=== PATIENT | male | born 1955 | race Two or more races ===

== ENCOUNTER → 2016-11-08 | Outpatient (CLI) | payer MEDICARE, MEDICAID ==
[~2016-11-08] MED LIST: AML5T PO; ATE50T PO; CHOL50007 PO; DOXA1TAB28 PO; ENAL20TA70 PO; GEM600T OR; GLIP-116 PO; LINA5TAB PO; METF-314 PO; PRAV20TA3 PO; RANI150C11 PO
[2016-11-08 12:38] LABS: Basophils # (auto) 0 uL; Basophils % (auto) 0.5 % (0.0-2.0); Eosinophils # (auto) 0.1 uL; Eosinophils % (auto) 1.7 % (0.0-7.0); Hematocrit 39.7 % (41.0-53.0); Hemoglobin 12.8 g/dL (13.5-17.5); Lymphocytes % (auto) 17.7 % (10.0-50.0); Mean Corpuscular Hemoglobin 28.9 pg (28.0-32.0); Mean Corpuscular Hgb Conc. 32.2 g/dL (32.0-36.0); Mean Corpuscular Volume 89.9 fL (80.0-100.0); Monocytes # (auto) 0.2 uL; Monocytes % (auto) 3.7 % (0.0-12.0); Neutrophils # (auto) 4.4 uL; Neutrophils % (auto) 76.4 % (37.0-80.0); Platelet Count (auto) 203 10^3/uL (140-450); Red Cell Distribution Width 13.4 % (11.6-16.0); SUSPECT VIEW TRANSMISSION; White Blood Cell 5.8 10^3/uL (4.4-10.8)
[2016-11-08 13:44] LABS: Albumin 3.3 g/dL (3.4-5.0); BUN/Creatinine Ratio 15.7; Bilirubin, Total 0.3 mg/dL (0.2-1.0); Calcium 8.6 mg/dL (8.5-10.1); Potassium 4.6 mmol/L (3.5-5.1); Total Protein 7.9 g/dL (6.4-8.2)
[2016-11-08 19:39] LABS: Platelet Estimate Adequate
[2016-11-08 19:40] LABS: RBC Morphology Normal
== END | disposition home or self-care (01) ==
LOC: LAB 11:06
PROVIDERS: ATTEND Internal Medicine
DX: R19.7 Diarrhea, unspecified (principal); E10.9 Type 1 diabetes mellitus without complications
CPT/HCPCS: 36415; 80053; 82607; 83036; 84439; 84443; 85025; 86141; 87493

== ENCOUNTER → 2017-06-06 | Outpatient (CLI) | payer MEDICARE, MEDICAID ==
[~2017-06-06] MED LIST changes: -METF-314 PO; +METF-371 PO
[2017-06-06 08:34] LABS: Basophils # (auto) 0 uL; Basophils % (auto) 0.5 % (0.0-2.0); Eosinophils # (auto) 0.1 uL; Eosinophils % (auto) 2.4 % (0.0-7.0); Hematocrit 37.8 % (41.0-53.0); Hemoglobin 12.9 g/dL (13.5-17.5); Lymphocytes # (auto) 1.3 uL; Lymphocytes % (auto) 22.9 % (10.0-50.0); Mean Corpuscular Hemoglobin 30.8 pg (28.0-32.0); Mean Corpuscular Hgb Conc. 34.1 g/dL (32.0-36.0); Mean Corpuscular Volume 90.3 fL (80.0-100.0); Mean Platelet Volume 8.7 fL (7.4-10.4); Monocytes # (auto) 0.3 uL; Monocytes % (auto) 5.5 % (0.0-12.0); Neutrophils % (auto) 68.7 % (37.0-80.0); Nucleated Red Blood Cells % 0.1 %; Platelet Count (auto) 153 10^3/uL (140-450); Red Cell Distribution Width 13.4 % (11.6-16.0); White Blood Cell 5.8 10^3/uL (4.4-10.8)
[2017-06-06 08:48] LABS: Urine Bilirubin Negative (Negative); Urine Blood Negative /uL (Negative); Urine Color Yellow (Yellow); Urine Glucose 1+ mg/dL (Normal); Urine Ketone Negative (Negative); Urine Nitrite Negative (Negative); Urine RBC <1 /hpf (0 - 3); Urine Urobilinogen Normal (Negative)
[2017-06-06 10:05] LABS: Albumin 3.3 g/dL (3.4-5.0); BUN/Creatinine Ratio 18.5; Bilirubin, Total 0.3 mg/dL (0.2-1.0); Calcium 8.9 mg/dL (8.5-10.1); Potassium 4.4 mmol/L (3.5-5.1); Total Protein 7.9 g/dL (6.4-8.2)
== END | disposition home or self-care (01) ==
LOC: LAB 08:11
PROVIDERS: ATTEND Internal Medicine
DX: E78.00 Pure hypercholesterolemia, unspecified (principal); D64.9 Anemia, unspecified; E11.9 Type 2 diabetes mellitus without complications
CPT/HCPCS: 36415; 80053; 80061; 81001; 82043; 83036; 84153; 85025; 85652

== ENCOUNTER → 2017-10-26 | Outpatient (CLI) | payer MEDICARE, MEDICAID ==
[2017-10-26 10:13] LABS: BUN/Creatinine Ratio 16.1; Calcium 9.1 mg/dL (8.5-10.1); Potassium 4.6 mmol/L (3.5-5.1)
== END | disposition home or self-care (01) ==
LOC: LAB 08:31
PROVIDERS: ATTEND Internal Medicine
DX: E11.22 Type 2 diabetes mellitus with diabetic chronic kidney disease (principal); N18.4 Chronic kidney disease, stage 4 (severe)
CPT/HCPCS: 36415; 80048; 83036

== ENCOUNTER → 2018-06-20 | Outpatient (CLI) | payer MEDICARE, MEDICAID ==
[~2018-06-20] MED LIST changes: +GLYCOPYRROLATE 0.2 MG/ML 1ML VIAL ONE
[2018-06-20 10:32] LABS: Urine Bacteria NONE SEEN /hpf (None Seen); Urine Blood Negative /uL (Negative); Urine Specific Gravity 1.008 (1.001-1.035); Urine WBC <1 /hpf (0 - 3)
[2018-06-20 11:16] LABS: Alanine Aminotransferase 20 U/L (16-61); Albumin 3.6 g/dL (3.4-5.0); Alkaline Phosphatase 107 U/L (45-117); Anion Gap 7 (5-15); Aspartate Aminotransferase 13 U/L (15-37); BUN/Creatinine Ratio 16.5; Bilirubin, Total 0.5 mg/dL (0.2-1.0); Blood Urea Nitrogen 55 mg/dL (7-18); Calcium 8.8 mg/dL (8.5-10.1); Carbon Dioxide 24 mmol/L (21-32); Chloride 108 mmol/L (98-107); Cholesterol 191 mg/dL (< 200); GFR African American 24 mL/min; GFR Non-African American 20 mL/min; Glucose 115 mg/dL (74-106); HDL Cholesterol 31 mg/dL (40-59); Potassium 4.6 mmol/L (3.5-5.1); Sodium 139 mmol/L (136-145); Total Protein 8.3 g/dL (6.4-8.2); Triglycerides 402 mg/dL (< 150); Uric Acid 8.3 mg/dL (3.5-7.2)
[2018-06-20 11:18] LABS: Prostate Specific Antigen 0.48 ng/mL (0.0-4.0)
== END | disposition home or self-care (01) ==
LOC: LAB 09:23
PROVIDERS: ATTEND Internal Medicine
DX: E11.22 Type 2 diabetes mellitus with diabetic chronic kidney disease (principal); N18.4 Chronic kidney disease, stage 4 (severe); N40.0 Benign prostatic hyperplasia without lower urinary tract symptoms
CPT/HCPCS: 36415; 80053; 80061; 81001; 82043; 82607; 83036; 84153; 84443; 84550

== ENCOUNTER → 2019-03-25 | Outpatient (CLI) | payer MEDICARE, MEDICAID ==
[~2019-03-25] MED LIST changes: -GLYCOPYRROLATE 0.2 MG/ML 1ML VIAL ONE
[2019-03-25 08:24] LABS: Potassium 4.5 mmol/L (3.5-5.1)
== END | disposition home or self-care (01) ==
LOC: LAB 07:25
PROVIDERS: ATTEND Internal Medicine
DX: E11.9 Type 2 diabetes mellitus without complications (principal); E78.5 Hyperlipidemia, unspecified; R25.2 Cramp and spasm
CPT/HCPCS: 36415; 80061; 82550; 84132

== ENCOUNTER → 2019-04-25 | Outpatient (CLI) | payer MEDICARE, MEDICAID ==
[~2019-04-25] MED LIST changes: +ENAL20TA PO; -ENAL20TA70 PO; -GLIP-116 PO; +GLIP10TA9 PO
[2019-04-25 10:50] LABS: Basophils # (auto) 0 uL; Basophils % (auto) 0.9 % (0.0-2.0); Eosinophils # (auto) 0.1 uL; Eosinophils % (auto) 2.2 % (0.0-7.0); Hematocrit 31.1 % (41.0-53.0); Hemoglobin 10.4 g/dL (13.5-17.5); Lymphocytes # (auto) 0.9 uL; Lymphocytes % (auto) 16.4 % (10.0-50.0); Mean Corpuscular Hgb Conc. 33.3 g/dL (32.0-36.0); Mean Corpuscular Volume 93.1 fL (80.0-100.0); Monocytes # (auto) 0.3 uL; Monocytes % (auto) 5.8 % (0.0-12.0); Neutrophils # (auto) 4.1 uL; Neutrophils % (auto) 74.7 % (37.0-80.0); Platelet Count (auto) 207 10^3/uL (140-450); Red Blood Cells 3.34 10^6/uL (4.5-5.90); Red Cell Distribution Width 13.5 % (11.8-14.3); White Blood Cell 5.5 10^3/uL (4.4-10.8)
[2019-04-25 11:16] LABS: Potassium 5.1 mmol/L (3.5-5.1)
[2019-04-25 11:35] LABS: Albumin 3.1 g/dL (3.4-5.0); Bilirubin, Total 0.3 mg/dL (0.2-1.0); Calcium 8.4 mg/dL (8.5-10.1); Phosphorus 3.8 mg/dL (2.5-4.90); Total Protein 8.1 g/dL (6.4-8.2); Uric Acid 8.2 mg/dL (3.5-7.2)
== END | disposition home or self-care (01) ==
LOC: LAB 10:15
PROVIDERS: ATTEND Internal Medicine
DX: E11.22 Type 2 diabetes mellitus with diabetic chronic kidney disease (principal); N18.4 Chronic kidney disease, stage 4 (severe)
CPT/HCPCS: 36415; 80053; 84100; 84550; 85025

== ENCOUNTER → 2021-10-26 | Outpatient (CLI) | payer MEDICARE, MEDICAID ==
[~2021-10-26] MED LIST changes: -ENAL20TA PO; +ENAL20TA8 PO
[2021-10-26 12:29] LABS: Basophils # (auto) 0.1 10 ^3/uL (0-0.2); Basophils % (auto) 1.9 % (0.0-2.0); Eosinophils # (auto) 0 10 ^3/uL (0-0.8); Eosinophils % (auto) 0.3 % (0.0-7.0); Hematocrit 31.9 % (41.0-53.0); Hemoglobin 10.7 g/dL (13.5-17.5); Lymphocytes # (auto) 0.1 10 ^3/uL (0.4-5.4); Lymphocytes % (auto) 2.1 % (10.0-50.0); Mean Corpuscular Hemoglobin 32.1 pg (28.0-32.0); Mean Corpuscular Hgb Conc. 33.6 g/dL (32.0-36.0); Mean Corpuscular Volume 95.7 fL (80.0-100.0); Monocytes # (auto) 0.2 10 ^3/uL (0-1.3); Monocytes % (auto) 3.6 % (0.0-12.0); Neutrophils # (auto) 5.1 10 ^3/uL (1.6-8.6); Neutrophils % (auto) 92.1 % (37.0-80.0); Red Blood Cells 3.33 10^6/uL (4.5-5.90); Red Cell Distribution Width 14.2 % (11.8-14.3); White Blood Cell 5.5 10^3/uL (4.4-10.8)
[2021-10-26 13:16] LABS: Albumin 3.2 g/dL (3.4-5.0); Calcium 8.5 mg/dL (8.5-10.1); Potassium 4.7 mmol/L (3.5-5.1)
[2021-10-26 13:21] LABS: BUN/Creatinine Ratio 19.3; Bilirubin, Total 0.5 mg/dL (0.2-1.0); Total Protein 6.6 g/dL (6.4-8.2); Uric Acid 5.4 mg/dL (3.5-7.2)
== END | disposition home or self-care (01) ==
LOC: LAB 12:04
PROVIDERS: ATTEND Internal Medicine
DX: I10 Essential (primary) hypertension (principal); Z94.0 Kidney transplant status
CPT/HCPCS: 36415; 80053; 84550; 85025; 85652

== ENCOUNTER → 2022-08-28 | Outpatient (CLI) | payer MEDICARE, MEDICAID ==
[2022-08-28 09:47] LABS: Basophils # (auto) 0 10 ^3/uL (0-0.2); Basophils % (auto) 0.6 % (0.0-2.0); Eosinophils # (auto) 0 10 ^3/uL (0-0.8); Eosinophils % (auto) 0.9 % (0.0-7.0); Hematocrit 48.6 % (41.0-53.0); Hemoglobin 15.8 g/dL (13.5-17.5); Lymphocytes # (auto) 0.6 10 ^3/uL (0.4-5.4); Lymphocytes % (auto) 11.6 % (10.0-50.0); Mean Corpuscular Hemoglobin 30.6 pg (28.0-32.0); Mean Corpuscular Hgb Conc. 32.5 g/dL (32.0-36.0); Mean Corpuscular Volume 93.9 fL (80.0-100.0); Monocytes # (auto) 0.5 10 ^3/uL (0-1.3); Monocytes % (auto) 10.9 % (0.0-12.0); Neutrophils # (auto) 3.7 10 ^3/uL (1.6-8.6); Nucleated Red Blood Cells % 0.2 %; Red Blood Cells 5.17 10^6/uL (4.5-5.90); Red Cell Distribution Width 14.3 % (11.8-14.3); White Blood Cell 4.9 10^3/uL (4.4-10.8)
[2022-08-28 09:51] LABS: Urine Bacteria FEW /hpf (None Seen); Urine Blood Negative /uL (Negative); Urine Specific Gravity 1.017 (1.001-1.035); Urine WBC <1 /hpf (0 - 3)
[2022-08-28 10:29] LABS: Potassium 4.4 mmol/L (3.5-5.1)
[2022-08-28 10:42] LABS: Albumin 3.7 g/dL (3.4-5.0); BUN/Creatinine Ratio 18.6; Bilirubin, Total 0.5 mg/dL (0.2-1.0); Calcium 9.5 mg/dL (8.5-10.1); Total Protein 7.2 g/dL (6.4-8.2); Uric Acid 5.4 mg/dL (3.5-7.2)
[2022-08-28 13:05] LABS: Free T4 (Free Thyroxine) 0.96 ng/dL (0.89-1.76); Prostate Specific Antigen 0.31 ng/mL (0.0-4.0)
== END | disposition home or self-care (01) ==
LOC: LAB 09:24
PROVIDERS: ATTEND Internal Medicine
DX: N40.0 Benign prostatic hyperplasia without lower urinary tract symptoms (principal); E11.9 Type 2 diabetes mellitus without complications; I10 Essential (primary) hypertension; R35.1 Nocturia; Z94.0 Kidney transplant status
CPT/HCPCS: 36415; 80053; 80061; 81001; 82043; 82607; 83036; 84153; 84439; 84443; 84550; 85025; 85652

== ENCOUNTER 2022-09-10 12:33 | Emergency (ER) | payer MEDICARE, MEDICAID ==
[~2022-09-10] VITALS: Ht 157.5 cm; Wt 67.5 kg
[2022-09-10 14:21] LABS: Basophils # (auto) 0 10 ^3/uL (0-0.2); Basophils % (auto) 0.7 % (0.0-2.0); Eosinophils # (auto) 0 10 ^3/uL (0-0.8); Eosinophils % (auto) 0.4 % (0.0-7.0); Hematocrit 46.9 % (41.0-53.0); Hemoglobin 15.3 g/dL (13.5-17.5); Lymphocytes # (auto) 0.3 10 ^3/uL (0.4-5.4); Lymphocytes % (auto) 4.9 % (10.0-50.0); Mean Corpuscular Hemoglobin 30.3 pg (28.0-32.0); Mean Corpuscular Hgb Conc. 32.5 g/dL (32.0-36.0); Mean Corpuscular Volume 93.3 fL (80.0-100.0); Monocytes # (auto) 0.5 10 ^3/uL (0-1.3); Neutrophils # (auto) 5.9 10 ^3/uL (1.6-8.6); Nucleated Red Blood Cells % 0.4 %; Red Blood Cells 5.03 10^6/uL (4.5-5.90); Red Cell Distribution Width 14.4 % (11.8-14.3); White Blood Cell 6.8 10^3/uL (4.4-10.8)
[2022-09-10 14:37] LABS: Albumin 3.5 g/dL (3.4-5.0); Calcium 9.2 mg/dL (8.5-10.1); Potassium 4.6 mmol/L (3.5-5.1)
[2022-09-10 14:41] LABS: BUN/Creatinine Ratio 21.8; Bilirubin, Total 0.7 mg/dL (0.2-1.0)
[2022-09-10] MEDS ORDERED: VANCOMYCIN 1GM/250ML 250 ML IV ONE (18:30)
[2022-09-10] MEDS ORDERED: CEFD300C2 PO (19:01)
[2022-09-10] MEDS ORDERED: CLIN300C8 PO (19:01)
[2022-09-10] MEDS ORDERED: HYDR-4902 PO (19:01)
[2022-09-10 20:24] VITALS: BP 134/77
== END 2022-09-10 20:25 | disposition home or self-care (01) ==
LOC: ER 12:33
DX: M86.8X7 Other osteomyelitis, ankle and foot (principal); E11.9 Type 2 diabetes mellitus without complications; I10 Essential (primary) hypertension; Z79.4 Long term (current) use of insulin
CPT/HCPCS: 36415; 73700; 80053; 85025; 96365; 99284; J3370

== ENCOUNTER → 2022-10-20 | Outpatient (CLI) | payer MEDICARE, MEDICAID ==
[~2022-10-20] MED LIST changes: +ATEN-60 PO; +CEFD300C2 PO; +CHOL20007 PO; +CLIN300C8 PO; +FAMO20TA10 PO; +HYDR-4902 PO; +MAGN400T40 PO; +MYCO250C PO; +MYCO500T PO; +POT1TAB PO; +POTATAB5 PO; +PRE5T PO; +PRED1PAK8 PO; +TACR1CAP4 PO; +TACR1GRA PO; +TAM04C PO; +TAMS0.4C36 PO; +[UNRECOGNIZED DRUG - CODE] XX
== END | disposition home or self-care (01) ==
LOC: Rad HDHVI 10:02
PROVIDERS: ATTEND Internal Medicine
DX: R06.02 Shortness of breath (principal); I10 Essential (primary) hypertension; E78.5 Hyperlipidemia, unspecified
CPT/HCPCS: 93306

== ENCOUNTER 2022-11-20 10:06 | Inpatient (IN) | payer MEDICARE, MEDICAID ==
[~2022-11-20] VITALS: Ht 157.5 cm; Wt 67.5 kg
[2022-11-20] MEDS ORDERED: PIPERACILLIN-TAZOB 3.375GM 100 ML IV ONE (12:15)
[2022-11-20 12:38] LABS: Urine Blood Negative /uL (Negative)
[2022-11-20 15:19] LABS: Basophils # (auto) 0 10 ^3/uL (0-0.2); Basophils % (auto) 0.3 % (0.0-2.0); Eosinophils # (auto) 0 10 ^3/uL (0-0.8); Eosinophils % (auto) 0.1 % (0.0-7.0); Hematocrit 40.1 % (41.0-53.0); Hemoglobin 13.2 g/dL (13.5-17.5); Lymphocytes # (auto) 0.3 10 ^3/uL (0.4-5.4); Lymphocytes % (auto) 4.6 % (10.0-50.0); Mean Corpuscular Hemoglobin 29.6 pg (28.0-32.0); Mean Corpuscular Volume 89.8 fL (80.0-100.0); Monocytes # (auto) 0.3 10 ^3/uL (0-1.3); Monocytes % (auto) 4.7 % (0.0-12.0); Neutrophils # (auto) 5.6 10 ^3/uL (1.6-8.6); Neutrophils % (auto) 90.3 % (37.0-80.0); Red Blood Cells 4.46 10^6/uL (4.5-5.90); Red Cell Distribution Width 14.6 % (11.8-14.3); White Blood Cell 6.1 10^3/uL (4.4-10.8)
[2022-11-20 15:29] LABS: Albumin 3.1 g/dL (3.4-5.0); Calcium 8.6 mg/dL (8.5-10.1); Potassium 4.5 mmol/L (3.5-5.1)
[2022-11-20 15:33] LABS: Bilirubin, Total 0.6 mg/dL (0.2-1.0); Total Protein 7.4 g/dL (6.4-8.2)
[2022-11-20] MEDS ORDERED: VANCOMYCIN PER PHARMACY 0 MG IV SCH (16:15)
[2022-11-20] MEDS ORDERED: ACETAMINOPHEN 325 MG TAB PO PRN (16:15)
[2022-11-20] MEDS ORDERED: DEXTROSE (50%) 50ML SYRG IV PRN (16:15)
[2022-11-20] MEDS ORDERED: VANCOMYCIN 1GM/250ML 250 ML IV ONE (16:30)
[2022-11-20] MEDS ORDERED: PANTOPRAZOLE 40 MG/10 ML VIAL INJ IV ONE (16:30)
[2022-11-20 16:51] LABS: Cholesterol 111 mg/dL (< 200); Triglycerides 105 mg/dL (< 150)
[2022-11-20 16:53] LABS: HDL Cholesterol 37 mg/dL (40-59); LDL Cholesterol 65 mg/dL (< 100)
[2022-11-20] MEDS: VANCOMYCIN 1GM/250ML 250 ML IV SCH (20:59)
[2022-11-20] MEDS: SODIUM CHLORIDE 0.9% 1,000 ML IV SCH (20:59)
[2022-11-20] MEDS: InsuLIN REG 1unit/0.01ml Soln (100units/ml) SC SCH ×2 (21:16→21:42)
[2022-11-20] MEDS: ACCU-CHEK COMFORT CURVE STRIP VI SCH ×2 (21:17→21:34)
[2022-11-20] MEDS: PIPERACILLIN-TAZOB 3.375GM 100 ML IV SCH (22:49)
[2022-11-21] MEDS: SODIUM CHLORIDE 0.9% 1,000 ML IV SCH (02:15)
[2022-11-21] MEDS: PIPERACILLIN-TAZOB 3.375GM 100 ML IV SCH ×3 (06:02→22:06)
[2022-11-21] MEDS: ACCU-CHEK COMFORT CURVE STRIP VI SCH ×4 (06:41→22:16)
[2022-11-21] MEDS: InsuLIN REG 1unit/0.01ml Soln (100units/ml) SC SCH ×4 (06:47→22:24)
[2022-11-21 07:32] LABS: Albumin 2.6 g/dL (3.4-5.0); Basophils # (auto) 0 10 ^3/uL (0-0.2); Basophils % (auto) 0.1 % (0.0-2.0); Eosinophils # (auto) 0.1 10 ^3/uL (0-0.8); Eosinophils % (auto) 1.2 % (0.0-7.0); Hemoglobin 12.6 g/dL (13.5-17.5); Lymphocytes # (auto) 0.3 10 ^3/uL (0.4-5.4); Lymphocytes % (auto) 3.6 % (10.0-50.0); Mean Corpuscular Hemoglobin 30.9 pg (28.0-32.0); Mean Corpuscular Hgb Conc. 33.2 g/dL (32.0-36.0); Monocytes # (auto) 0.5 10 ^3/uL (0-1.3); Monocytes % (auto) 5.8 % (0.0-12.0); Neutrophils # (auto) 8.5 10 ^3/uL (1.6-8.6); Neutrophils % (auto) 89.3 % (37.0-80.0); Nucleated Red Blood Cells % 0.1 %; Potassium 4.6 mmol/L (3.5-5.1); Red Blood Cells 4.09 10^6/uL (4.5-5.90); Red Cell Distribution Width 14.6 % (11.8-14.3); White Blood Cell 9.5 10^3/uL (4.4-10.8)
[2022-11-21 07:37] LABS: BUN/Creatinine Ratio 26.4; Bilirubin, Total 0.7 mg/dL (0.2-1.0); Total Protein 5.7 g/dL (6.4-8.2)
[2022-11-21] MEDS: ENOXAPARIN SOD 40 MG/0.4 ML SYRINGE SC SCH (09:10)
[2022-11-21] MEDS: PANTOPRAZOLE 40 MG/10 ML VIAL INJ IV SCH (09:10)
[2022-11-21] MEDS: VANCOMYCIN 1GM/250ML 250 ML IV SCH (12:56)
[2022-11-21 13:57] LABS: INR 1.18 (0.9-1.15); Partial Thromboplastin Time 41.3 sec (24.6-33.4)
[2022-11-21 15:38] VITALS: BP 138/33
[2022-11-21 20:00] VITALS: BP 115/47
[2022-11-21 22:00] VITALS: BP 115/47
[2022-11-22 05:00] VITALS: BP 133/61
[2022-11-22 05:40] LABS: Basophils # (auto) 0 10 ^3/uL (0-0.2); Basophils % (auto) 0.5 % (0.0-2.0); Eosinophils # (auto) 0.1 10 ^3/uL (0-0.8); Hematocrit 38.4 % (41.0-53.0); Hemoglobin 13.2 g/dL (13.5-17.5); Lymphocytes # (auto) 0.5 10 ^3/uL (0.4-5.4); Lymphocytes % (auto) 7.4 % (10.0-50.0); Mean Corpuscular Hemoglobin 30.4 pg (28.0-32.0); Mean Corpuscular Hgb Conc. 34.5 g/dL (32.0-36.0); Mean Corpuscular Volume 88.2 fL (80.0-100.0); Monocytes # (auto) 0.6 10 ^3/uL (0-1.3); Neutrophils # (auto) 5.2 10 ^3/uL (1.6-8.6); Neutrophils % (auto) 81.1 % (37.0-80.0); Nucleated Red Blood Cells % 0.2 %; Red Blood Cells 4.35 10^6/uL (4.5-5.90); Red Cell Distribution Width 14.9 % (11.8-14.3); White Blood Cell 6.4 10^3/uL (4.4-10.8)
[2022-11-22 05:49] LABS: BUN/Creatinine Ratio 22.8; Calcium 8.7 mg/dL (8.5-10.1); Potassium 4.3 mmol/L (3.5-5.1)
[2022-11-22] MEDS: PIPERACILLIN-TAZOB 3.375GM 100 ML IV SCH ×3 (05:52→21:45)
[2022-11-22] MEDS: ACCU-CHEK COMFORT CURVE STRIP VI SCH ×4 (06:34→21:05)
[2022-11-22] MEDS: InsuLIN REG 1unit/0.01ml Soln (100units/ml) SC SCH ×4 (06:35→21:23)
[2022-11-22 08:00] VITALS: BP 161/62
[2022-11-22] MEDS: NEUTRA-PHOS TABLET PO SCH (08:30)
[2022-11-22] MEDS: VANCOMYCIN 1GM/250ML 250 ML IV SCH (08:32)
[2022-11-22] MEDS ORDERED: predniSONE 5 MG TAB PO ONE (10:00)
[2022-11-22] MEDS: FAMOTIDINE 20 MG TAB PO SCH (10:00)
[2022-11-22] MEDS ORDERED: TACROLIMUS 1 MG CAP PO SCH (10:00)
[2022-11-22] MEDS: ATENOLOL 25 MG TAB PO SCH (10:00)
[2022-11-22] MEDS: ENOXAPARIN SOD 40 MG/0.4 ML SYRINGE SC SCH (10:00)
[2022-11-22] MEDS: amLODIPine BESYLATE 5 MG TAB PO SCH (10:00)
[2022-11-22] MEDS: GEMFIBROZIL 600 MG TAB PO SCH ×2 (10:00→21:04)
[2022-11-22] MEDS: metFORMIN HYDROCHLORIDE 850 MG TAB PO SCH ×2 (10:00→21:03)
[2022-11-22] MEDS: PANTOPRAZOLE 40 MG/10 ML VIAL INJ IV SCH (11:00)
[2022-11-22] MEDS: MYCOPHENOLATE 500 MG TAB PO SCH ×2 (11:15→21:03)
[2022-11-22] MEDS: TACROLIMUS 1 MG CAP PO SCH ×2 (11:15→21:04)
[2022-11-22 12:00] VITALS: BP 123/57
[2022-11-22] MEDS ORDERED: ceFAZolin 1GM/50ML 100 ML IV ONE (12:21)
[2022-11-22] MEDS ORDERED: fentaNYL CITRATE 100 MCG/2 ML VL ONE (12:31)
[2022-11-22] MEDS ORDERED: MIDAZOLAM HCL 2MG/2ML 2ml VIAL (1mg/ml) ONE (12:31)
[2022-11-22] MEDS ORDERED: LIDOCAINE W/ EPINEPHRINE 2% INJ 20ML VIAL ONE (12:36)
[2022-11-22] MEDS ORDERED: BUPIVACAINE 0.5% P/F INJ 10 ML VIAL ONE (12:36)
[2022-11-22] MEDS ORDERED: ONDANSETRON HCL 4 MG/2 ML VIAL IV PRN (13:15)
[2022-11-22] MEDS ORDERED: HYDROmorphone HCL 2 MG/ML VL/or syr IV PRN (13:15)
[2022-11-22] MEDS ORDERED: ceFAZolin 1GM VL ONE (13:42)
[2022-11-22] MEDS ORDERED: ONDANSETRON HCL 4 MG/2 ML VIAL ONE (14:03)
[2022-11-22] MEDS ORDERED: PROPOFOL 10 MG/ML 20 ML IV ONE (14:04)
[2022-11-22 16:00] VITALS: BP 130/56
[2022-11-22] MEDS: PRAVASTATIN SODIUM 20 MG TAB PO SCH (17:46)
[2022-11-22 20:00] VITALS: BP 109/56
[2022-11-22] MEDS: TAMSULOSIN HYDROCHLORIDE 0.4 MG CAP PO SCH (21:03)
[2022-11-22] MEDS: MORPHINE SULFATE INJ 2 MG/ml SYRG IV PRN (21:12)
[2022-11-22 22:00] VITALS: BP 109/56
[2022-11-23] MEDS: VANCOMYCIN 1GM/250ML 250 ML IV SCH ×2 (01:44→21:52)
[2022-11-23 05:00] VITALS: BP 115/49
[2022-11-23] MEDS: PIPERACILLIN-TAZOB 3.375GM 100 ML IV SCH (05:18)
[2022-11-23] MEDS: HYDROcodone-ACET 5/325MG TAB PO PRN (05:33)
[2022-11-23] MEDS: predniSONE 5 MG TAB PO SCH (05:34)
[2022-11-23] MEDS: ACCU-CHEK COMFORT CURVE STRIP VI SCH ×4 (05:37→21:53)
[2022-11-23] MEDS: InsuLIN REG 1unit/0.01ml Soln (100units/ml) SC SCH ×4 (05:46→22:01)
[2022-11-23 06:07] LABS: Basophils # (auto) 0 10 ^3/uL (0-0.2); Basophils % (auto) 0.3 % (0.0-2.0); Eosinophils # (auto) 0.1 10 ^3/uL (0-0.8); Eosinophils % (auto) 0.8 % (0.0-7.0); Hematocrit 38.5 % (41.0-53.0); Hemoglobin 12.9 g/dL (13.5-17.5); Lymphocytes # (auto) 0.5 10 ^3/uL (0.4-5.4); Lymphocytes % (auto) 6.7 % (10.0-50.0); Mean Corpuscular Hemoglobin 29.8 pg (28.0-32.0); Mean Corpuscular Hgb Conc. 33.4 g/dL (32.0-36.0); Mean Corpuscular Volume 89.4 fL (80.0-100.0); Monocytes # (auto) 0.6 10 ^3/uL (0-1.3); Monocytes % (auto) 8.4 % (0.0-12.0); Neutrophils # (auto) 6.3 10 ^3/uL (1.6-8.6); Neutrophils % (auto) 83.8 % (37.0-80.0); Nucleated Red Blood Cells % 0.1 %; Red Blood Cells 4.31 10^6/uL (4.5-5.90); Red Cell Distribution Width 14.8 % (11.8-14.3); White Blood Cell 7.5 10^3/uL (4.4-10.8)
[2022-11-23 06:28] LABS: Calcium 8.5 mg/dL (8.5-10.1); Potassium 4.6 mmol/L (3.5-5.1)
[2022-11-23 06:32] LABS: BUN/Creatinine Ratio 19.8
[2022-11-23 08:00] VITALS: BP 111/51
[2022-11-23] MEDS: NEUTRA-PHOS TABLET PO SCH (09:31)
[2022-11-23] MEDS: PANTOPRAZOLE 40 MG/10 ML VIAL INJ IV SCH (09:32)
[2022-11-23] MEDS: metFORMIN HYDROCHLORIDE 850 MG TAB PO SCH ×2 (09:32→21:53)
[2022-11-23] MEDS: MYCOPHENOLATE 500 MG TAB PO SCH ×2 (09:32→21:53)
[2022-11-23] MEDS: GEMFIBROZIL 600 MG TAB PO SCH ×2 (09:41→21:53)
[2022-11-23] MEDS: amLODIPine BESYLATE 5 MG TAB PO SCH (09:41)
[2022-11-23] MEDS: FAMOTIDINE 20 MG TAB PO SCH (09:42)
[2022-11-23] MEDS: ATENOLOL 25 MG TAB PO SCH (09:44)
[2022-11-23] MEDS: TACROLIMUS 1 MG CAP PO SCH ×2 (09:45→21:53)
[2022-11-23] MEDS: ENOXAPARIN SOD 40 MG/0.4 ML SYRINGE SC SCH (09:45)
[2022-11-23 12:00] VITALS: BP 122/51
[2022-11-23] MEDS: CEFEPIME 2 GM in D5W 5% 50 ML IV SCH (13:41)
[2022-11-23] MEDS: MORPHINE SULFATE INJ 2 MG/ml SYRG IV PRN (15:27)
[2022-11-23 16:00] VITALS: BP 113/51
[2022-11-23] MEDS: PRAVASTATIN SODIUM 20 MG TAB PO SCH (17:51)
[2022-11-23 20:00] VITALS: BP 121/62
[2022-11-23] MEDS: TAMSULOSIN HYDROCHLORIDE 0.4 MG CAP PO SCH (21:53)
[2022-11-23 22:00] VITALS: BP 121/62
[2022-11-24] MEDS: CEFEPIME 2 GM in D5W 5% 50 ML IV SCH ×3 (03:44→21:57)
[2022-11-24 05:00] VITALS: BP 123/52
[2022-11-24] MEDS: predniSONE 5 MG TAB PO SCH (06:32)
[2022-11-24] MEDS: ACCU-CHEK COMFORT CURVE STRIP VI SCH ×4 (06:38→21:53)
[2022-11-24] MEDS: InsuLIN REG 1unit/0.01ml Soln (100units/ml) SC SCH ×4 (06:42→21:54)
[2022-11-24 07:21] LABS: BUN/Creatinine Ratio 22.1; Calcium 8.7 mg/dL (8.5-10.1); Potassium 4.5 mmol/L (3.5-5.1)
[2022-11-24 09:00] VITALS: BP 102/65
[2022-11-24] MEDS: amLODIPine BESYLATE 5 MG TAB PO SCH (10:00)
[2022-11-24] MEDS: NEUTRA-PHOS TABLET PO SCH (10:19)
[2022-11-24] MEDS: ENOXAPARIN SOD 40 MG/0.4 ML SYRINGE SC SCH (10:19)
[2022-11-24] MEDS: GEMFIBROZIL 600 MG TAB PO SCH ×2 (10:19→21:52)
[2022-11-24] MEDS: PANTOPRAZOLE 40 MG/10 ML VIAL INJ IV SCH (10:19)
[2022-11-24] MEDS: FAMOTIDINE 20 MG TAB PO SCH (10:20)
[2022-11-24] MEDS: metFORMIN HYDROCHLORIDE 850 MG TAB PO SCH ×2 (10:21→21:55)
[2022-11-24] MEDS: ATENOLOL 25 MG TAB PO SCH (10:21)
[2022-11-24] MEDS: HYDROcodone-ACET 5/325MG TAB PO PRN ×2 (10:25→17:36)
[2022-11-24] MEDS: TACROLIMUS 1 MG CAP PO SCH ×2 (12:01→21:53)
[2022-11-24] MEDS: MYCOPHENOLATE 500 MG TAB PO SCH ×2 (12:02→21:51)
[2022-11-24 13:00] VITALS: BP 113/61
[2022-11-24] MEDS: VANCOMYCIN 1GM/250ML 250 ML IV SCH (14:20)
[2022-11-24 17:00] VITALS: BP 117/71
[2022-11-24] MEDS: PRAVASTATIN SODIUM 20 MG TAB PO SCH (17:35)
[2022-11-24] MEDS: TAMSULOSIN HYDROCHLORIDE 0.4 MG CAP PO SCH (21:52)
[2022-11-24 22:00] VITALS: BP 113/67
[2022-11-25 05:00] VITALS: BP 112/67
[2022-11-25] MEDS: CEFEPIME 2 GM in D5W 5% 50 ML IV SCH ×3 (05:34→21:29)
[2022-11-25] MEDS: ACCU-CHEK COMFORT CURVE STRIP VI SCH ×4 (06:20→21:32)
[2022-11-25] MEDS: predniSONE 5 MG TAB PO SCH (06:20)
[2022-11-25] MEDS: InsuLIN REG 1unit/0.01ml Soln (100units/ml) SC SCH ×4 (06:23→21:35)
[2022-11-25 06:26] LABS: BUN/Creatinine Ratio 26.7; Potassium 4.4 mmol/L (3.5-5.1)
[2022-11-25] MEDS: NEUTRA-PHOS TABLET PO SCH (08:18)
[2022-11-25] MEDS: metFORMIN HYDROCHLORIDE 850 MG TAB PO SCH ×2 (08:19→21:27)
[2022-11-25] MEDS: VANCOMYCIN 1GM/250ML 250 ML IV SCH (08:19)
[2022-11-25] MEDS: GEMFIBROZIL 600 MG TAB PO SCH ×2 (08:19→21:27)
[2022-11-25] MEDS: FAMOTIDINE 20 MG TAB PO SCH (08:19)
[2022-11-25] MEDS: PANTOPRAZOLE 40 MG/10 ML VIAL INJ IV SCH (08:20)
[2022-11-25] MEDS: ENOXAPARIN SOD 40 MG/0.4 ML SYRINGE SC SCH (08:20)
[2022-11-25] MEDS: amLODIPine BESYLATE 5 MG TAB PO SCH (08:21)
[2022-11-25] MEDS: ATENOLOL 25 MG TAB PO SCH (08:21)
[2022-11-25 09:00] VITALS: BP_SYST 109; BP_SYST 111; BP_SYST 116; BP_DIAS 67; BP_DIAS 72; BP_DIAS 82
[2022-11-25] MEDS: MYCOPHENOLATE 500 MG TAB PO SCH ×2 (11:24→21:26)
[2022-11-25] MEDS: TACROLIMUS 1 MG CAP PO SCH ×2 (11:24→21:28)
[2022-11-25] MEDS: HYDROcodone-ACET 5/325MG TAB PO PRN (12:36)
[2022-11-25 13:00] VITALS: BP 120/70
[2022-11-25 17:00] VITALS: BP 119/78
[2022-11-25] MEDS: PRAVASTATIN SODIUM 20 MG TAB PO SCH (17:18)
[2022-11-25] MEDS: TAMSULOSIN HYDROCHLORIDE 0.4 MG CAP PO SCH (21:27)
[2022-11-25 22:00] VITALS: BP 119/73
[2022-11-26] MEDS: VANCOMYCIN 1GM/250ML 250 ML IV SCH ×2 (01:51→21:07)
[2022-11-26 05:00] VITALS: BP 122/62
[2022-11-26] MEDS: CEFEPIME 2 GM in D5W 5% 50 ML IV SCH ×2 (05:31→18:30)
[2022-11-26] MEDS: predniSONE 5 MG TAB PO SCH (06:25)
[2022-11-26] MEDS: ACCU-CHEK COMFORT CURVE STRIP VI SCH ×4 (06:25→21:38)
[2022-11-26] MEDS: InsuLIN REG 1unit/0.01ml Soln (100units/ml) SC SCH ×4 (06:28→21:42)
[2022-11-26 09:00] VITALS: BP 122/68
[2022-11-26] MEDS: MYCOPHENOLATE 500 MG TAB PO SCH ×2 (09:40→21:39)
[2022-11-26] MEDS: GEMFIBROZIL 600 MG TAB PO SCH ×2 (09:40→21:33)
[2022-11-26] MEDS: metFORMIN HYDROCHLORIDE 850 MG TAB PO SCH ×2 (09:40→21:37)
[2022-11-26] MEDS: amLODIPine BESYLATE 5 MG TAB PO SCH (09:40)
[2022-11-26] MEDS: NEUTRA-PHOS TABLET PO SCH (09:40)
[2022-11-26] MEDS: FAMOTIDINE 20 MG TAB PO SCH (09:41)
[2022-11-26] MEDS: ENOXAPARIN SOD 40 MG/0.4 ML SYRINGE SC SCH (09:41)
[2022-11-26] MEDS: HYDROcodone-ACET 5/325MG TAB PO PRN (09:41)
[2022-11-26] MEDS: PANTOPRAZOLE 40 MG/10 ML VIAL INJ IV SCH (09:41)
[2022-11-26] MEDS: TACROLIMUS 1 MG CAP PO SCH ×2 (09:42→21:39)
[2022-11-26] MEDS: ATENOLOL 25 MG TAB PO SCH (09:43)
[2022-11-26 12:58] VITALS: BP 110/67
[2022-11-26 17:00] VITALS: BP 108/68
[2022-11-26] MEDS: PRAVASTATIN SODIUM 20 MG TAB PO SCH (18:30)
[2022-11-26 20:00] VITALS: BP 110/68
[2022-11-26] MEDS: TAMSULOSIN HYDROCHLORIDE 0.4 MG CAP PO SCH (21:33)
[2022-11-26 22:00] VITALS: BP 110/68
[2022-11-27 05:00] VITALS: BP 104/59
[2022-11-27] MEDS: CEFEPIME 2 GM in D5W 5% 50 ML IV SCH (05:25)
[2022-11-27] MEDS: InsuLIN REG 1unit/0.01ml Soln (100units/ml) SC SCH ×4 (05:40→22:24)
[2022-11-27] MEDS: ACCU-CHEK COMFORT CURVE STRIP VI SCH ×4 (05:41→22:13)
[2022-11-27] MEDS: predniSONE 5 MG TAB PO SCH (05:42)
[2022-11-27] MEDS: NEUTRA-PHOS TABLET PO SCH (08:11)
[2022-11-27 08:32] VITALS: BP 105/66
[2022-11-27] MEDS: GEMFIBROZIL 600 MG TAB PO SCH ×2 (09:53→21:51)
[2022-11-27] MEDS: metFORMIN HYDROCHLORIDE 850 MG TAB PO SCH ×2 (09:53→22:14)
[2022-11-27] MEDS: ATENOLOL 25 MG TAB PO SCH (09:53)
[2022-11-27] MEDS: PANTOPRAZOLE 40 MG/10 ML VIAL INJ IV SCH (09:53)
[2022-11-27] MEDS: ENOXAPARIN SOD 40 MG/0.4 ML SYRINGE SC SCH (09:54)
[2022-11-27] MEDS: FAMOTIDINE 20 MG TAB PO SCH (09:54)
[2022-11-27] MEDS: amLODIPine BESYLATE 5 MG TAB PO SCH (09:55)
[2022-11-27] MEDS: MYCOPHENOLATE 500 MG TAB PO SCH ×2 (11:25→21:52)
[2022-11-27] MEDS: TACROLIMUS 1 MG CAP PO SCH ×2 (11:25→21:52)
[2022-11-27] MEDS: PIPERACILLIN-TAZOB 3.375GM 100 ML IV SCH ×3 (11:26→23:46)
[2022-11-27 12:22] VITALS: BP 107/65
[2022-11-27 16:17] VITALS: BP 106/67
[2022-11-27 16:22] LABS: Basophils # (auto) 0 10 ^3/uL (0-0.2); Basophils % (auto) 0.4 % (0.0-2.0); Eosinophils # (auto) 0 10 ^3/uL (0-0.8); Eosinophils % (auto) 0.3 % (0.0-7.0); Hematocrit 38.4 % (41.0-53.0); Hemoglobin 12.8 g/dL (13.5-17.5); Lymphocytes # (auto) 0.4 10 ^3/uL (0.4-5.4); Lymphocytes % (auto) 5.6 % (10.0-50.0); Mean Corpuscular Hemoglobin 29.3 pg (28.0-32.0); Mean Corpuscular Hgb Conc. 33.2 g/dL (32.0-36.0); Mean Corpuscular Volume 88.1 fL (80.0-100.0); Monocytes # (auto) 0.4 10 ^3/uL (0-1.3); Monocytes % (auto) 5.1 % (0.0-12.0); Neutrophils # (auto) 6.1 10 ^3/uL (1.6-8.6); Neutrophils % (auto) 88.6 % (37.0-80.0); Red Blood Cells 4.36 10^6/uL (4.5-5.90); Red Cell Distribution Width 14.8 % (11.8-14.3); White Blood Cell 6.9 10^3/uL (4.4-10.8)
[2022-11-27 16:33] LABS: INR 1.14 (0.9-1.15)
[2022-11-27] MEDS: HYDROcodone-ACET 5/325MG TAB PO PRN ×2 (18:05→23:45)
[2022-11-27] MEDS: PRAVASTATIN SODIUM 20 MG TAB PO SCH (18:05)
[2022-11-27 20:00] VITALS: BP 96/60
[2022-11-27] MEDS: TAMSULOSIN HYDROCHLORIDE 0.4 MG CAP PO SCH (21:51)
[2022-11-27 22:04] VITALS: BP 96/60
[2022-11-28 05:00] VITALS: BP 92/50
[2022-11-28] MEDS: PIPERACILLIN-TAZOB 3.375GM 100 ML IV SCH ×2 (06:11→11:27)
[2022-11-28] MEDS: InsuLIN REG 1unit/0.01ml Soln (100units/ml) SC SCH ×4 (06:18→21:43)
[2022-11-28] MEDS: ACCU-CHEK COMFORT CURVE STRIP VI SCH ×4 (06:20→21:43)
[2022-11-28] MEDS: predniSONE 5 MG TAB PO SCH (06:23)
[2022-11-28 08:30] VITALS: BP 104/68
[2022-11-28] MEDS ORDERED: LIDOCAINE 1% (LOCAL ANESTH.) PF 5ml SDV ID ONE (09:00)
[2022-11-28] MEDS: metFORMIN HYDROCHLORIDE 850 MG TAB PO SCH ×2 (09:32→21:43)
[2022-11-28] MEDS: GEMFIBROZIL 600 MG TAB PO SCH ×2 (09:32→21:43)
[2022-11-28] MEDS: ENOXAPARIN SOD 40 MG/0.4 ML SYRINGE SC SCH (09:32)
[2022-11-28] MEDS: FAMOTIDINE 20 MG TAB PO SCH (09:34)
[2022-11-28] MEDS: ATENOLOL 25 MG TAB PO SCH (09:34)
[2022-11-28] MEDS: NEUTRA-PHOS TABLET PO SCH (09:34)
[2022-11-28] MEDS: PANTOPRAZOLE 40 MG/10 ML VIAL INJ IV SCH (09:35)
[2022-11-28] MEDS: amLODIPine BESYLATE 5 MG TAB PO SCH (09:35)
[2022-11-28] MEDS: SODIUM CHLOR 0.9% PF (SALINE LOCK) 10ML VIAL/SYR IV SCH ×2 (09:35→21:42)
[2022-11-28] MEDS: TACROLIMUS 1 MG CAP PO SCH ×2 (11:26→21:43)
[2022-11-28] MEDS: MYCOPHENOLATE 500 MG TAB PO SCH ×2 (11:26→21:42)
[2022-11-28] MEDS ORDERED: MORPHINE SULFATE INJ 2 MG/ml SYRG IV PRN (12:15)
[2022-11-28 12:30] VITALS: BP 129/61
[2022-11-28] MEDS ORDERED: HYDROcodone-ACET 5/325MG TAB PO PRN (12:30)
[2022-11-28 16:19] VITALS: BP 107/50
[2022-11-28] MEDS: PRAVASTATIN SODIUM 20 MG TAB PO SCH (16:35)
[2022-11-28 20:00] VITALS: BP 102/60
[2022-11-28] MEDS: TAMSULOSIN HYDROCHLORIDE 0.4 MG CAP PO SCH (21:42)
[2022-11-28] MEDS: CEFEPIME 2 GM in SODIUM CHL 0.9% 50 ML IV SCH (21:42)
[2022-11-28 22:35] VITALS: BP 102/60
[2022-11-29 05:13] VITALS: BP 113/62
[2022-11-29] MEDS: CEFEPIME 2 GM in SODIUM CHL 0.9% 50 ML IV SCH ×2 (05:37→14:04)
[2022-11-29] MEDS: InsuLIN REG 1unit/0.01ml Soln (100units/ml) SC SCH ×3 (06:09→18:11)
[2022-11-29] MEDS: ACCU-CHEK COMFORT CURVE STRIP VI SCH ×3 (06:09→17:00)
[2022-11-29] MEDS: predniSONE 5 MG TAB PO SCH (06:10)
[2022-11-29 08:00] VITALS: BP 104/68
[2022-11-29 09:00] VITALS: BP 121/54
[2022-11-29] MEDS: PANTOPRAZOLE 40 MG/10 ML VIAL INJ IV SCH (09:25)
[2022-11-29] MEDS: NEUTRA-PHOS TABLET PO SCH (09:27)
[2022-11-29] MEDS: GEMFIBROZIL 600 MG TAB PO SCH (09:27)
[2022-11-29] MEDS: metFORMIN HYDROCHLORIDE 850 MG TAB PO SCH (09:28)
[2022-11-29] MEDS: MYCOPHENOLATE 500 MG TAB PO SCH (09:28)
[2022-11-29] MEDS: TACROLIMUS 1 MG CAP PO SCH (09:28)
[2022-11-29] MEDS: FAMOTIDINE 20 MG TAB PO SCH (09:29)
[2022-11-29] MEDS: ATENOLOL 25 MG TAB PO SCH (09:30)
[2022-11-29] MEDS: amLODIPine BESYLATE 5 MG TAB PO SCH (09:30)
[2022-11-29] MEDS: SODIUM CHLOR 0.9% PF (SALINE LOCK) 10ML VIAL/SYR IV SCH (09:34)
[2022-11-29] MEDS ORDERED: ENOXAPARIN SOD 40 MG/0.4 ML SYRINGE SC SCH (10:00)
[2022-11-29] MEDS ORDERED: Juven Fruit Punch Powder PACKET 28.8gm PO SCH (10:00)
[2022-11-29] MEDS ORDERED: HYDR-4902 PO (12:58)
[2022-11-29 13:00] VITALS: BP 135/67
[2022-11-29 17:00] VITALS: BP 132/63
[2022-11-29] MEDS: PRAVASTATIN SODIUM 20 MG TAB PO SCH (18:03)
== END 2022-11-29 19:08 | disposition home health service (06) | DRG 629 ==
LOC: ER 10:06 → OVERFLOW 16:20 → EAST 11-21 14:55 → CENTRAL 11-21 18:32
PROVIDERS: ADMIT Registered Nurse; ATTEND Nurse Practitioner Acute Care
PROC: 0QBN0ZZ Excision of Right Metatarsal, Open Approach (ICD-10-PCS; principal; 2022-11-22 13:11)
PROC: 05HB33Z Insertion of Infusion Device into Right Basilic Vein, Percutaneous Approach (ICD-10-PCS; 2022-11-28)
PROC: B54MZZA Ultrasonography of Right Upper Extremity Veins, Guidance (ICD-10-PCS; 2022-11-28)
DX: E11.69 Type 2 diabetes mellitus with other specified complication (principal); M86.8X7 Other osteomyelitis, ankle and foot; Z94.0 Kidney transplant status; E11.51 Type 2 diabetes mellitus with diabetic peripheral angiopathy without gangrene; E11.65 Type 2 diabetes mellitus with hyperglycemia; E11.22 Type 2 diabetes mellitus with diabetic chronic kidney disease; N40.0 Benign prostatic hyperplasia without lower urinary tract symptoms; E78.5 Hyperlipidemia, unspecified; L97.509 Non-pressure chronic ulcer of other part of unspecified foot with unspecified severity; E11.621 Type 2 diabetes mellitus with foot ulcer; Z89.411 Acquired absence of right great toe; Z82.49 Family history of ischemic heart disease and other diseases of the circulatory system; Z83.3 Family history of diabetes mellitus; Z86.19 Personal history of other infectious and parasitic diseases; Z99.2 Dependence on renal dialysis; I12.9 Hypertensive chronic kidney disease with stage 1 through stage 4 chronic kidney disease, or unspecified chronic kidney disease; N18.2 Chronic kidney disease, stage 2 (mild)
CPT/HCPCS: 36415; 36569; 71045; 73630; 73700; 80048; 80053; 80061; 80202; 81003; 82962; 83036; 83605; 84443; 85025; 85610; 85730; 86850; 86900; 86901; 87040; 87075; 87077; 87186; 87205; 87426; 93971; 96361; 96365; 96375; C1781; C9113; G0378; J0690; J1815; J2250; J2405; J2543; J2704; J3490; J7060; J7507; J7517

== ENCOUNTER 2023-01-01 12:48 | Inpatient (IN) | payer MEDICARE, MEDICAID ==
[~2023-01-01] VITALS: Ht 154.9 cm; Wt 64.3 kg
[2023-01-01 14:00] LABS: Urine Bacteria NONE SEEN /hpf (None Seen); Urine Blood Negative /uL (Negative); Urine Specific Gravity 1.025 (1.001-1.035); Urine WBC 1 /hpf (0 - 3)
[2023-01-01] MEDS ORDERED: PIPERACILLIN-TAZOB 3.375GM 100 ML IV ONE (14:00)
[2023-01-01] MEDS ORDERED: VANCOMYCIN 1GM/250ML 250 ML IV ONE ×2 (14:00→20:15)
[2023-01-01 14:01] LABS: Basophils # (auto) 0 10 ^3/uL (0-0.2); Basophils % (auto) 0.3 % (0.0-2.0); Eosinophils # (auto) 0 10 ^3/uL (0-0.8); Eosinophils % (auto) 0.7 % (0.0-7.0); Hematocrit 38.8 % (41.0-53.0); Hemoglobin 12.9 g/dL (13.5-17.5); Lymphocytes # (auto) 0.4 10 ^3/uL (0.4-5.4); Lymphocytes % (auto) 6.3 % (10.0-50.0); Mean Corpuscular Hemoglobin 29.7 pg (28.0-32.0); Mean Corpuscular Hgb Conc. 33.3 g/dL (32.0-36.0); Monocytes # (auto) 0.4 10 ^3/uL (0-1.3); Monocytes % (auto) 5.9 % (0.0-12.0); Neutrophils # (auto) 5.7 10 ^3/uL (1.6-8.6); Neutrophils % (auto) 86.8 % (37.0-80.0); Nucleated Red Blood Cells % 0.1 %; Red Blood Cells 4.36 10^6/uL (4.5-5.90); White Blood Cell 6.6 10^3/uL (4.4-10.8)
[2023-01-01 14:13] LABS: Calcium 8.6 mg/dL (8.5-10.1); Potassium 4.2 mmol/L (3.5-5.1)
[2023-01-01 14:19] LABS: Albumin 2.9 g/dL (3.4-5.0); BUN/Creatinine Ratio 21.9 (10.0-20.0); Bilirubin, Total 0.4 mg/dL (0.2-1.0)
[2023-01-01] MEDS ORDERED: VANCOMYCIN PER PHARMACY 0 MG IV SCH ×2 (19:15→20:00)
[2023-01-01] MEDS ORDERED: ACETAMINOPHEN 325 MG TAB PO PRN (19:15)
[2023-01-01] MEDS ORDERED: DEXTROSE (50%) 50ML SYRG IV PRN (19:30)
[2023-01-01] MEDS: PIPERACILLIN-TAZOB 3.375GM 100 ML IV SCH (23:05)
[2023-01-01] MEDS: PRAVASTATIN SODIUM 20 MG TAB PO SCH (23:05)
[2023-01-01] MEDS: ACCU-CHEK COMFORT CURVE STRIP VI SCH (23:11)
[2023-01-01] MEDS: InsuLIN REG 1unit/0.01ml Soln (100units/ml) SC SCH (23:14)
[2023-01-01] MEDS ORDERED: CHOL20007 PO (23:23)
[2023-01-01] MEDS ORDERED: INSLANTI SC (23:25)
[2023-01-01 23:26] VITALS: BP 139/70
[2023-01-02] MEDS: InsuLIN REG 1unit/0.01ml Soln (100units/ml) SC SCH ×4 (06:09→21:33)
[2023-01-02] MEDS: ACCU-CHEK COMFORT CURVE STRIP VI SCH ×4 (06:09→21:32)
[2023-01-02] MEDS: PIPERACILLIN-TAZOB 3.375GM 100 ML IV SCH ×2 (06:09→13:51)
[2023-01-02 06:13] VITALS: BP 130/67
[2023-01-02 06:13] LABS: Basophils # (auto) 0 10 ^3/uL (0-0.2); Basophils % (auto) 0.5 % (0.0-2.0); Eosinophils # (auto) 0.1 10 ^3/uL (0-0.8); Eosinophils % (auto) 1.7 % (0.0-7.0); Hemoglobin 12.8 g/dL (13.5-17.5); Lymphocytes # (auto) 0.6 10 ^3/uL (0.4-5.4); Mean Corpuscular Hgb Conc. 33.7 g/dL (32.0-36.0); Monocytes # (auto) 0.6 10 ^3/uL (0-1.3); Monocytes % (auto) 12.4 % (0.0-12.0); Neutrophils # (auto) 3.3 10 ^3/uL (1.6-8.6); Neutrophils % (auto) 72.4 % (37.0-80.0); Red Blood Cells 4.26 10^6/uL (4.5-5.90); Red Cell Distribution Width 15.9 % (11.8-14.3); White Blood Cell 4.5 10^3/uL (4.4-10.8)
[2023-01-02 06:32] LABS: Potassium 3.9 mmol/L (3.5-5.1)
[2023-01-02 07:20] LABS: Albumin 2.8 g/dL (3.4-5.0); BUN/Creatinine Ratio 22.5 (10.0-20.0); Bilirubin, Total 0.4 mg/dL (0.2-1.0); Calcium 8.9 mg/dL (8.5-10.1); Total Protein 6.7 g/dL (6.4-8.2)
[2023-01-02 08:00] VITALS: BP 136/61
[2023-01-02] MEDS: VANCOMYCIN 750mg/250ml 250 ML IV SCH ×2 (09:38→20:30)
[2023-01-02] MEDS: amLODIPine BESYLATE 5 MG TAB PO SCH (09:39)
[2023-01-02] MEDS: GEMFIBROZIL 600 MG TAB PO SCH (09:39)
[2023-01-02] MEDS: ATENOLOL 25 MG TAB PO SCH (09:40)
[2023-01-02] MEDS ORDERED: TAMSULOSIN HYDROCHLORIDE 0.4 MG CAP PO SCH (10:00)
[2023-01-02] MEDS ORDERED: MYCOPHENOLATE 250 MG CAP PO SCH (10:00)
[2023-01-02] MEDS ORDERED: ENOXAPARIN SOD 40 MG/0.4 ML SYRINGE SC SCH (10:00)
[2023-01-02 13:00] VITALS: BP 152/71
[2023-01-02] MEDS: TACROLIMUS 1 MG CAP PO SCH (13:19)
[2023-01-02] MEDS ORDERED: predniSONE 5 MG TAB PO ONE (15:45)
[2023-01-02 17:00] VITALS: BP 122/76
[2023-01-02] MEDS: TAMSULOSIN HYDROCHLORIDE 0.4 MG CAP PO SCH (18:06)
[2023-01-02] MEDS: PRAVASTATIN SODIUM 20 MG TAB PO SCH (21:32)
[2023-01-02] MEDS: MYCOPHENOLATE 500 MG TAB PO SCH (21:57)
[2023-01-02] MEDS: CEFEPIME 2 GM in SODIUM CHL 0.9% 50 ML IV SCH (21:57)
[2023-01-02 22:00] VITALS: BP 118/59
[2023-01-02] MEDS: HYDROcodone-ACET 5/325MG TAB PO PRN (23:26)
[2023-01-03 05:00] VITALS: BP 128/83
[2023-01-03] MEDS: ACCU-CHEK COMFORT CURVE STRIP VI SCH ×4 (05:54→22:31)
[2023-01-03] MEDS: InsuLIN REG 1unit/0.01ml Soln (100units/ml) SC SCH ×4 (05:54→22:32)
[2023-01-03 06:41] LABS: BUN/Creatinine Ratio 22.8 (10.0-20.0); Calcium 9.2 mg/dL (8.5-10.1); INR 1.06 (0.9-1.15); Partial Thromboplastin Time 33.6 sec (24.6-33.4); Potassium 4.9 mmol/L (3.5-5.1)
[2023-01-03 06:45] LABS: Basophils # (auto) 0 10 ^3/uL (0-0.2); Basophils % (auto) 0.5 % (0.0-2.0); Eosinophils # (auto) 0 10 ^3/uL (0-0.8); Eosinophils % (auto) 0.6 % (0.0-7.0); Hematocrit 39.6 % (41.0-53.0); Hemoglobin 13.1 g/dL (13.5-17.5); Lymphocytes # (auto) 0.6 10 ^3/uL (0.4-5.4); Lymphocytes % (auto) 10.2 % (10.0-50.0); Mean Corpuscular Hemoglobin 29.5 pg (28.0-32.0); Mean Corpuscular Hgb Conc. 33.1 g/dL (32.0-36.0); Monocytes # (auto) 0.4 10 ^3/uL (0-1.3); Monocytes % (auto) 6.6 % (0.0-12.0); Neutrophils # (auto) 4.5 10 ^3/uL (1.6-8.6); Neutrophils % (auto) 82.1 % (37.0-80.0); Nucleated Red Blood Cells % 0.2 %; Red Blood Cells 4.45 10^6/uL (4.5-5.90); White Blood Cell 5.5 10^3/uL (4.4-10.8)
[2023-01-03] MEDS ORDERED: PROPOFOL 10 MG/ML 20 ML IV ONE (07:32)
[2023-01-03] MEDS ORDERED: SODIUM CHLORIDE LOCK 10 ML ONE (07:32)
[2023-01-03] MEDS ORDERED: ONDANSETRON HCL 4 MG/2 ML VIAL ONE (07:32)
[2023-01-03] MEDS ORDERED: fentaNYL CITRATE 100 MCG/2 ML VL ONE (07:32)
[2023-01-03] MEDS ORDERED: MIDAZOLAM HCL 2MG/2ML 2ml VIAL (1mg/ml) ONE (07:32)
[2023-01-03] MEDS ORDERED: MORPHINE SULFATE INJ 2 MG/ml SYRG IV PRN (08:15)
[2023-01-03] MEDS ORDERED: HYDROmorphone HCL 2 MG/ML VL/or syr IV PRN ×2 (08:15)
[2023-01-03] MEDS ORDERED: METOCLOPRAMIDE HCL 5MG/ml INJ 2ml VIAL IV PRN (08:15)
[2023-01-03] MEDS ORDERED: ACCU-CHEK COMFORT CURVE STRIP VI ONE (08:15)
[2023-01-03 08:30] VITALS: BP 135/75
[2023-01-03] MEDS ORDERED: ceFAZolin 1GM/50ML 100 ML IV ONE (09:16)
[2023-01-03] MEDS: CEFEPIME 2 GM in SODIUM CHL 0.9% 50 ML IV SCH ×2 (11:34→22:20)
[2023-01-03] MEDS: predniSONE 5 MG TAB PO SCH (11:34)
[2023-01-03] MEDS: amLODIPine BESYLATE 5 MG TAB PO SCH (11:35)
[2023-01-03] MEDS: GEMFIBROZIL 600 MG TAB PO SCH (11:36)
[2023-01-03] MEDS ORDERED: DexAMETHasone SOD PHOS 10MG/1ML VIAL INJ IV ONE (11:37)
[2023-01-03] MEDS: MYCOPHENOLATE 500 MG TAB PO SCH ×2 (11:44→22:19)
[2023-01-03] MEDS: TACROLIMUS 1 MG CAP PO SCH (11:45)
[2023-01-03] MEDS: ATENOLOL 25 MG TAB PO SCH (11:46)
[2023-01-03 12:30] VITALS: BP 143/40
[2023-01-03 16:55] VITALS: BP 123/70
[2023-01-03] MEDS: VANCOMYCIN 750mg/250ml 250 ML IV SCH (17:10)
[2023-01-03] MEDS: MORPHINE SULFATE INJ 2 MG/ml SYRG IV PRN (17:20)
[2023-01-03] MEDS: TAMSULOSIN HYDROCHLORIDE 0.4 MG CAP PO SCH (18:14)
[2023-01-03 22:00] VITALS: BP 138/87
[2023-01-03] MEDS: PRAVASTATIN SODIUM 20 MG TAB PO SCH (22:19)
[2023-01-04 05:00] VITALS: BP 127/61
[2023-01-04] MEDS: ACCU-CHEK COMFORT CURVE STRIP VI SCH ×4 (06:29→22:24)
[2023-01-04] MEDS: InsuLIN REG 1unit/0.01ml Soln (100units/ml) SC SCH ×4 (06:31→22:27)
[2023-01-04] MEDS: HYDROcodone-ACET 5/325MG TAB PO PRN (06:34)
[2023-01-04 06:53] LABS: Basophils # (auto) 0 10 ^3/uL (0-0.2); Basophils % (auto) 0.4 % (0.0-2.0); Eosinophils # (auto) 0.1 10 ^3/uL (0-0.8); Eosinophils % (auto) 0.8 % (0.0-7.0); Hematocrit 39.2 % (41.0-53.0); Hemoglobin 13.3 g/dL (13.5-17.5); Lymphocytes # (auto) 0.7 10 ^3/uL (0.4-5.4); Lymphocytes % (auto) 10.1 % (10.0-50.0); Mean Corpuscular Hemoglobin 29.9 pg (28.0-32.0); Mean Corpuscular Hgb Conc. 33.9 g/dL (32.0-36.0); Mean Corpuscular Volume 88.3 fL (80.0-100.0); Monocytes # (auto) 0.6 10 ^3/uL (0-1.3); Monocytes % (auto) 9.2 % (0.0-12.0); Neutrophils # (auto) 5.3 10 ^3/uL (1.6-8.6); Neutrophils % (auto) 79.5 % (37.0-80.0); Nucleated Red Blood Cells % 0.2 %; Red Blood Cells 4.44 10^6/uL (4.5-5.90); White Blood Cell 6.7 10^3/uL (4.4-10.8)
[2023-01-04 07:23] LABS: Calcium 9.1 mg/dL (8.5-10.1); Potassium 4.1 mmol/L (3.5-5.1)
[2023-01-04 07:26] LABS: BUN/Creatinine Ratio 25.7 (10.0-20.0)
[2023-01-04 09:00] VITALS: BP 119/65
[2023-01-04] MEDS: MYCOPHENOLATE 500 MG TAB PO SCH ×2 (10:53→22:23)
[2023-01-04] MEDS: TACROLIMUS 1 MG CAP PO SCH (10:54)
[2023-01-04] MEDS: predniSONE 5 MG TAB PO SCH (10:55)
[2023-01-04] MEDS: GEMFIBROZIL 600 MG TAB PO SCH (10:55)
[2023-01-04] MEDS: VANCOMYCIN 750mg/250ml 250 ML IV SCH (10:55)
[2023-01-04] MEDS: ATENOLOL 25 MG TAB PO SCH (10:56)
[2023-01-04] MEDS: amLODIPine BESYLATE 5 MG TAB PO SCH (10:56)
[2023-01-04] MEDS: CEFEPIME 2 GM in SODIUM CHL 0.9% 50 ML IV SCH ×2 (12:10→22:22)
[2023-01-04 13:00] VITALS: BP 121/60
[2023-01-04 16:29] VITALS: BP 139/75
[2023-01-04] MEDS: TAMSULOSIN HYDROCHLORIDE 0.4 MG CAP PO SCH (17:55)
[2023-01-04 22:00] VITALS: BP 115/62
[2023-01-04] MEDS: PRAVASTATIN SODIUM 20 MG TAB PO SCH (22:23)
[2023-01-05] MEDS: VANCOMYCIN 750mg/250ml 250 ML IV SCH (03:41)
[2023-01-05 05:00] VITALS: BP 129/68
[2023-01-05 06:19] LABS: Basophils # (auto) 0 10 ^3/uL (0-0.2); Basophils % (auto) 0.5 % (0.0-2.0); Eosinophils # (auto) 0.1 10 ^3/uL (0-0.8); Eosinophils % (auto) 1.4 % (0.0-7.0); Hematocrit 38.7 % (41.0-53.0); Hemoglobin 13.2 g/dL (13.5-17.5); Lymphocytes # (auto) 0.6 10 ^3/uL (0.4-5.4); Mean Corpuscular Hemoglobin 29.8 pg (28.0-32.0); Mean Corpuscular Volume 87.7 fL (80.0-100.0); Monocytes # (auto) 0.6 10 ^3/uL (0-1.3); Monocytes % (auto) 10.7 % (0.0-12.0); Neutrophils # (auto) 4.1 10 ^3/uL (1.6-8.6); Neutrophils % (auto) 75.4 % (37.0-80.0); Red Blood Cells 4.42 10^6/uL (4.5-5.90); Red Cell Distribution Width 15.7 % (11.8-14.3); White Blood Cell 5.4 10^3/uL (4.4-10.8)
[2023-01-05] MEDS: ACCU-CHEK COMFORT CURVE STRIP VI SCH ×4 (06:30→22:49)
[2023-01-05 06:33] LABS: Potassium 3.8 mmol/L (3.5-5.1)
[2023-01-05] MEDS: InsuLIN REG 1unit/0.01ml Soln (100units/ml) SC SCH ×4 (06:41→22:48)
[2023-01-05 06:46] LABS: Albumin 2.6 g/dL (3.4-5.0); BUN/Creatinine Ratio 31.2 (10.0-20.0); Bilirubin, Total 0.6 mg/dL (0.2-1.0); Calcium 8.9 mg/dL (8.5-10.1)
[2023-01-05 08:30] VITALS: BP 121/74
[2023-01-05] MEDS: TACROLIMUS 1 MG CAP PO SCH (10:53)
[2023-01-05] MEDS: MYCOPHENOLATE 500 MG TAB PO SCH ×2 (10:53→22:47)
[2023-01-05] MEDS: GEMFIBROZIL 600 MG TAB PO SCH (10:53)
[2023-01-05] MEDS: CEFEPIME 2 GM in SODIUM CHL 0.9% 50 ML IV SCH ×2 (10:53→22:47)
[2023-01-05] MEDS: predniSONE 5 MG TAB PO SCH (10:55)
[2023-01-05] MEDS: amLODIPine BESYLATE 5 MG TAB PO SCH (10:56)
[2023-01-05] MEDS: ATENOLOL 25 MG TAB PO SCH (10:56)
[2023-01-05] MEDS: HYDROcodone-ACET 5/325MG TAB PO PRN (10:58)
[2023-01-05 16:25] VITALS: BP 124/74
[2023-01-05] MEDS ORDERED: CYANOCOBALAMIN (B-12) 1000 MCG/1 ML VIAL IM ONE (17:15)
[2023-01-05] MEDS: TAMSULOSIN HYDROCHLORIDE 0.4 MG CAP PO SCH (18:43)
[2023-01-05 22:00] VITALS: BP 146/63
[2023-01-05] MEDS: LINEZOLID 600MG/300ML 300 ML IV SCH (22:47)
[2023-01-05] MEDS: PRAVASTATIN SODIUM 20 MG TAB PO SCH (22:48)
[2023-01-06] VITALS (7 sets, daily range): BP systolic 106–145; BP diastolic 54–63
[2023-01-06] MEDS: InsuLIN REG 1unit/0.01ml Soln (100units/ml) SC SCH ×4 (07:00→23:13)
[2023-01-06] MEDS: ACCU-CHEK COMFORT CURVE STRIP VI SCH ×4 (07:08→22:00)
[2023-01-06 07:12] LABS: Basophils # (auto) 0.1 10 ^3/uL (0-0.2); Basophils % (auto) 1.2 % (0.0-2.0); Eosinophils # (auto) 0.1 10 ^3/uL (0-0.8); Eosinophils % (auto) 1.5 % (0.0-7.0); Hematocrit 39.8 % (41.0-53.0); Hemoglobin 13.8 g/dL (13.5-17.5); Lymphocytes # (auto) 0.7 10 ^3/uL (0.4-5.4); Lymphocytes % (auto) 13.5 % (10.0-50.0); Mean Corpuscular Hemoglobin 29.8 pg (28.0-32.0); Mean Corpuscular Hgb Conc. 34.6 g/dL (32.0-36.0); Mean Corpuscular Volume 86.1 fL (80.0-100.0); Monocytes # (auto) 0.6 10 ^3/uL (0-1.3); Monocytes % (auto) 10.6 % (0.0-12.0); Neutrophils % (auto) 73.2 % (37.0-80.0); Nucleated Red Blood Cells % 0.8 %; Red Blood Cells 4.62 10^6/uL (4.5-5.90); Red Cell Distribution Width 16.1 % (11.8-14.3); White Blood Cell 5.5 10^3/uL (4.4-10.8)
[2023-01-06 07:31] LABS: Albumin 2.8 g/dL (3.4-5.0); BUN/Creatinine Ratio 28.6 (10.0-20.0); Calcium 9.3 mg/dL (8.5-10.1); Potassium 4.3 mmol/L (3.5-5.1)
[2023-01-06 07:34] LABS: Bilirubin, Total 0.6 mg/dL (0.2-1.0); Total Protein 7.4 g/dL (6.4-8.2)
[2023-01-06] MEDS: LINEZOLID 600MG/300ML 300 ML IV SCH ×2 (10:14→23:12)
[2023-01-06] MEDS: CEFEPIME 2 GM in SODIUM CHL 0.9% 50 ML IV SCH ×2 (10:14→23:11)
[2023-01-06] MEDS: predniSONE 5 MG TAB PO SCH (10:15)
[2023-01-06] MEDS: amLODIPine BESYLATE 5 MG TAB PO SCH (10:15)
[2023-01-06] MEDS: GEMFIBROZIL 600 MG TAB PO SCH (10:15)
[2023-01-06] MEDS: CYANOCOBALAMIN (B-12) 1000 MCG/1 ML VIAL IM SCH (10:18)
[2023-01-06] MEDS: MYCOPHENOLATE 500 MG TAB PO SCH ×2 (10:19→23:11)
[2023-01-06] MEDS: TACROLIMUS 1 MG CAP PO SCH (10:19)
[2023-01-06] MEDS: ATENOLOL 25 MG TAB PO SCH (10:20)
[2023-01-06] MEDS: MORPHINE SULFATE INJ 2 MG/ml SYRG IV PRN (11:38)
[2023-01-06] MEDS: TAMSULOSIN HYDROCHLORIDE 0.4 MG CAP PO SCH (18:39)
[2023-01-06] MEDS: Juven Orange Powder PACKET 27.5gm PO SCH (18:39)
[2023-01-06] MEDS: PRAVASTATIN SODIUM 20 MG TAB PO SCH (23:12)
[2023-01-07 05:00] VITALS: BP 129/50
[2023-01-07] MEDS: ACCU-CHEK COMFORT CURVE STRIP VI SCH ×4 (06:59→22:41)
[2023-01-07] MEDS: InsuLIN REG 1unit/0.01ml Soln (100units/ml) SC SCH ×4 (06:59→22:50)
[2023-01-07 08:00] VITALS: BP 157/73
[2023-01-07] MEDS: HYDROcodone-ACET 5/325MG TAB PO PRN (08:09)
[2023-01-07] MEDS: Juven Orange Powder PACKET 27.5gm PO SCH ×2 (08:12→17:03)
[2023-01-07 08:48] VITALS: BP 157/73
[2023-01-07] MEDS: CEFEPIME 2 GM in SODIUM CHL 0.9% 50 ML IV SCH ×2 (10:38→22:40)
[2023-01-07] MEDS: GEMFIBROZIL 600 MG TAB PO SCH (11:04)
[2023-01-07] MEDS: ATENOLOL 25 MG TAB PO SCH (11:05)
[2023-01-07] MEDS: amLODIPine BESYLATE 5 MG TAB PO SCH (11:06)
[2023-01-07] MEDS: MYCOPHENOLATE 500 MG TAB PO SCH ×2 (11:08→22:40)
[2023-01-07] MEDS: TACROLIMUS 1 MG CAP PO SCH (11:08)
[2023-01-07] MEDS: CYANOCOBALAMIN (B-12) 1000 MCG/1 ML VIAL IM SCH (11:08)
[2023-01-07] MEDS: predniSONE 5 MG TAB PO SCH (11:09)
[2023-01-07] MEDS: LINEZOLID 600MG/300ML 300 ML IV SCH ×2 (11:11→22:00)
[2023-01-07] MEDS ORDERED: ENOXAPARIN SOD 30 MG/0.3 ML SYRINGE SC ONE (12:00)
[2023-01-07 13:00] VITALS: BP 140/71
[2023-01-07] MEDS: TAMSULOSIN HYDROCHLORIDE 0.4 MG CAP PO SCH (16:58)
[2023-01-07 17:00] VITALS: BP 127/52
[2023-01-07 22:00] VITALS: BP 131/77
[2023-01-07] MEDS: PRAVASTATIN SODIUM 20 MG TAB PO SCH (22:40)
[2023-01-08] VITALS (7 sets, daily range): BP systolic 110–147; BP diastolic 47–71
[2023-01-08] MEDS: ACCU-CHEK COMFORT CURVE STRIP VI SCH ×3 (06:52→17:03)
[2023-01-08] MEDS: InsuLIN REG 1unit/0.01ml Soln (100units/ml) SC SCH ×3 (06:53→17:00)
[2023-01-08] MEDS: Juven Orange Powder PACKET 27.5gm PO SCH ×2 (09:00→18:06)
[2023-01-08] MEDS ORDERED: ENOXAPARIN SOD 30 MG/0.3 ML SYRINGE SC SCH (10:00)
[2023-01-08 10:55] LABS: Basophils # (auto) 0 10 ^3/uL (0-0.2); Basophils % (auto) 0.5 % (0.0-2.0); Eosinophils # (auto) 0.1 10 ^3/uL (0-0.8); Eosinophils % (auto) 1.2 % (0.0-7.0); Hematocrit 39.6 % (41.0-53.0); Hemoglobin 13.3 g/dL (13.5-17.5); Lymphocytes # (auto) 0.7 10 ^3/uL (0.4-5.4); Lymphocytes % (auto) 10.5 % (10.0-50.0); Mean Corpuscular Hemoglobin 29.7 pg (28.0-32.0); Mean Corpuscular Hgb Conc. 33.6 g/dL (32.0-36.0); Mean Corpuscular Volume 88.3 fL (80.0-100.0); Monocytes # (auto) 0.5 10 ^3/uL (0-1.3); Monocytes % (auto) 7.4 % (0.0-12.0); Neutrophils # (auto) 5.6 10 ^3/uL (1.6-8.6); Neutrophils % (auto) 80.4 % (37.0-80.0); Nucleated Red Blood Cells % 0.1 %; Red Blood Cells 4.49 10^6/uL (4.5-5.90); Red Cell Distribution Width 15.7 % (11.8-14.3); White Blood Cell 6.9 10^3/uL (4.4-10.8)
[2023-01-08 11:31] LABS: BUN/Creatinine Ratio 34.6 (10.0-20.0); Calcium 9.2 mg/dL (8.5-10.1); Potassium 4.1 mmol/L (3.5-5.1)
[2023-01-08] MEDS: LINEZOLID 600MG/300ML 300 ML IV SCH (11:54)
[2023-01-08] MEDS: CEFEPIME 2 GM in SODIUM CHL 0.9% 50 ML IV SCH (11:54)
[2023-01-08] MEDS: MYCOPHENOLATE 500 MG TAB PO SCH (11:55)
[2023-01-08] MEDS: TACROLIMUS 1 MG CAP PO SCH (11:55)
[2023-01-08] MEDS: CYANOCOBALAMIN (B-12) 1000 MCG/1 ML VIAL IM SCH (11:55)
[2023-01-08] MEDS: GEMFIBROZIL 600 MG TAB PO SCH (11:56)
[2023-01-08] MEDS: ATENOLOL 25 MG TAB PO SCH (11:56)
[2023-01-08] MEDS: predniSONE 5 MG TAB PO SCH (11:56)
[2023-01-08] MEDS: amLODIPine BESYLATE 5 MG TAB PO SCH (11:57)
[2023-01-08] MEDS: TAMSULOSIN HYDROCHLORIDE 0.4 MG CAP PO SCH (18:06)
== END 2023-01-08 20:35 | DRG 622 ==
LOC: ER 12:48 → OVERFLOW 19:21 → WEST WING 22:45
PROVIDERS: ADMIT Registered Nurse; ATTEND Internal Medicine
PROC: 0JBQ0ZZ Excision of Right Foot Subcutaneous Tissue and Fascia, Open Approach (ICD-10-PCS; principal; 2023-01-03 08:56)
DX: E11.69 Type 2 diabetes mellitus with other specified complication (principal); E43 Unspecified severe protein-calorie malnutrition; U07.1 COVID-19; L03.116 Cellulitis of left lower limb; M86.8X7 Other osteomyelitis, ankle and foot; Z94.0 Kidney transplant status; E11.621 Type 2 diabetes mellitus with foot ulcer; B95.62 Methicillin resistant Staphylococcus aureus infection as the cause of diseases classified elsewhere; B96.5 Pseudomonas (aeruginosa) (mallei) (pseudomallei) as the cause of diseases classified elsewhere; E11.51 Type 2 diabetes mellitus with diabetic peripheral angiopathy without gangrene; I10 Essential (primary) hypertension; E78.5 Hyperlipidemia, unspecified; L97.509 Non-pressure chronic ulcer of other part of unspecified foot with unspecified severity; Z68.27 Body mass index [BMI] 27.0-27.9, adult; Z89.411 Acquired absence of right great toe; Z83.3 Family history of diabetes mellitus; Z82.49 Family history of ischemic heart disease and other diseases of the circulatory system
CPT/HCPCS: 36415; 71045; 73701; 78315; 80048; 80053; 80202; 81001; 82306; 82550; 82607; 82962; 83036; 84484; 85025; 85610; 85652; 85730; 86141; 86850; 86900; 86901; 87040; 87075; 87077; 87081; 87186; 87205; 87426; 96365; 96367; G0378; J0690; J1100; J1815; J2250; J2405; J2543; J2704; J7507; J7517

== ENCOUNTER 2023-01-23 18:44 | Inpatient (IN) | payer MEDICARE, MEDICAID ==
[~2023-01-23] VITALS: Ht 172.7 cm; Wt 62.0 kg
[~2023-01-23 18:44] MED LIST changes: -ATE50T PO; -CLIN300C8 PO; +INSLANTI SC; -TACR1GRA PO
[2023-01-23 22:01] LABS: Albumin 3.5 g/dL (3.4-5.0); BUN/Creatinine Ratio 24.2 (10.0-20.0); CRP High Sensitivity 0.24 mg/dL (< 0.3); Calcium 9.2 mg/dL (8.5-10.1)
[2023-01-23 22:02] LABS: Lactic Acid w/Reflex 3.9 mmol/L (0.4-2.0)
[2023-01-23 22:03] LABS: Bilirubin, Total 0.3 mg/dL (0.2-1.0); Total Protein 8.1 g/dL (6.4-8.2)
[2023-01-23 22:05] LABS: Basophils # (auto) 0 10 ^3/uL (0-0.2); Basophils % (auto) 0.3 % (0.0-2.0); Eosinophils # (auto) 0 10 ^3/uL (0-0.8); Lymphocytes # (auto) 0.6 10 ^3/uL (0.4-5.4); Monocytes # (auto) 0.2 10 ^3/uL (0-1.3)
[2023-01-23 22:08] LABS: Eosinophils % (auto) 0.5 % (0.0-7.0); Hemoglobin 13.4 g/dL (13.5-17.5); Lymphocytes % (auto) 17.6 % (10.0-50.0); Mean Corpuscular Hemoglobin 29.2 pg (28.0-32.0); Mean Corpuscular Hgb Conc. 33.4 g/dL (32.0-36.0); Mean Corpuscular Volume 87.5 fL (80.0-100.0); Monocytes % (auto) 4.4 % (0.0-12.0); Neutrophils # (auto) 2.7 10 ^3/uL (1.6-8.6); Neutrophils % (auto) 77.2 % (37.0-80.0); Nucleated Red Blood Cells % 0.4 %; Red Blood Cells 4.57 10^6/uL (4.5-5.90); Red Cell Distribution Width 15.6 % (11.8-14.3); White Blood Cell 3.5 10^3/uL (4.4-10.8)
[2023-01-24] MEDS ORDERED: DEXTROSE (50%) 50ML SYRG IV PRN (02:45)
[2023-01-24] MEDS ORDERED: ONDANSETRON HCL 4 MG/2 ML VIAL IV PRN (02:45)
[2023-01-24] MEDS ORDERED: MORPHINE SULFATE INJ 2 MG/ml SYRG IV PRN (02:45)
[2023-01-24] MEDS ORDERED: CLINDAMYCIN 600MG IV 50 ML IV SCH (03:15)
[2023-01-24] MEDS ORDERED: cefTRIAXone 1GM/50ML D5W 50 ML IV SCH (04:00)
[2023-01-24 04:18] LABS: INR 1.03 (0.9-1.15); Partial Thromboplastin Time 29.3 sec (24.6-33.4)
[2023-01-24] MEDS ORDERED: ROPIVACAINE 0.5% (5MG/ML) 20ML AMPULE IJ ONE (06:53)
[2023-01-24] MEDS ORDERED: BACITRACIN TOP OINT 1 UD PKG TOP ONE (06:53)
[2023-01-24] MEDS: ACCU-CHEK COMFORT CURVE STRIP VI SCH ×3 (06:53→18:07)
[2023-01-24] MEDS: InsuLIN REG 1unit/0.01ml Soln (100units/ml) SC SCH ×3 (06:54→18:08)
[2023-01-24] MEDS ORDERED: PROPOFOL 10 MG/ML 20 ML IV ONE (06:55)
[2023-01-24] MEDS ORDERED: KETOROLAC TROMETH 30 MG/ML 1ML VIAL ONE (06:55)
[2023-01-24] MEDS ORDERED: GLYCOPYRROLATE 0.2 MG/ML 1ML VIAL ONE (06:55)
[2023-01-24] MEDS ORDERED: DexAMETHasone SOD PHOS 10MG/1ML VIAL INJ ONE (06:55)
[2023-01-24] MEDS ORDERED: LIDOCAINE 2% (LOCAL ANESTH.) PF 5ml SDV ONE (06:55)
[2023-01-24] MEDS ORDERED: ONDANSETRON HCL 4 MG/2 ML VIAL ONE (06:55)
[2023-01-24] MEDS ORDERED: CEFEPIME 1GM/ 50ML 50 ML IV ONE (10:30)
[2023-01-24] MEDS ORDERED: SODIUM CHLORIDE 0.9% 1,000 ML IV ONE (10:30)
[2023-01-24] MEDS ORDERED: VANCOMYCIN PER PHARMACY 0 MG IV SCH (10:30)
[2023-01-24] MEDS ORDERED: CYANOCOBALAMIN 500 MCG TAB PO ONE (10:45)
[2023-01-24] MEDS: HYDROcodone-ACET 5/325MG TAB PO PRN (11:50)
[2023-01-24 13:00] VITALS: BP 148/72
[2023-01-24] MEDS ORDERED: DAPTOmycin 300 MG in SODIUM CHL 0.9% 50 ML IV SCH (15:00)
[2023-01-24 17:00] VITALS: BP 151/63
[2023-01-24] MEDS: CEFEPIME 1GM/ 50ML 50 ML IV SCH (21:37)
[2023-01-24 22:00] VITALS: BP 99/65
[2023-01-25] MEDS: ACCU-CHEK COMFORT CURVE STRIP VI SCH ×5 (00:06→23:59)
[2023-01-25] MEDS: InsuLIN REG 1unit/0.01ml Soln (100units/ml) SC SCH ×4 (00:17→18:17)
[2023-01-25 05:00] VITALS: BP 130/68
[2023-01-25 06:01] LABS: Basophils # (auto) 0 10 ^3/uL (0-0.2); Eosinophils # (auto) 0 10 ^3/uL (0-0.8); Hemoglobin 11.9 g/dL (13.5-17.5); Monocytes # (auto) 0.3 10 ^3/uL (0-1.3); Red Cell Distribution Width 15.9 % (11.8-14.3)
[2023-01-25 06:04] LABS: Basophils % (auto) 0.1 % (0.0-2.0); Hematocrit 34.9 % (41.0-53.0); Lymphocytes # (auto) 0.5 10 ^3/uL (0.4-5.4); Lymphocytes % (auto) 10.9 % (10.0-50.0); Mean Corpuscular Hemoglobin 29.8 pg (28.0-32.0); Mean Corpuscular Volume 87.6 fL (80.0-100.0); Monocytes % (auto) 6.1 % (0.0-12.0); Neutrophils # (auto) 3.6 10 ^3/uL (1.6-8.6); Neutrophils % (auto) 82.9 % (37.0-80.0); Nucleated Red Blood Cells % 0.1 %; Red Blood Cells 3.98 10^6/uL (4.5-5.90); White Blood Cell 4.3 10^3/uL (4.4-10.8)
[2023-01-25 06:21] LABS: Lactic Acid w/Reflex 2.8 mmol/L (0.4-2.0)
[2023-01-25 06:22] LABS: Albumin 2.9 g/dL (3.4-5.0); Calcium 9.1 mg/dL (8.5-10.1); Potassium 4.8 mmol/L (3.5-5.1)
[2023-01-25 06:26] LABS: BUN/Creatinine Ratio 28.7 (10.0-20.0); Bilirubin, Total 0.3 mg/dL (0.2-1.0); Total Protein 6.4 g/dL (6.4-8.2)
[2023-01-25 08:00] VITALS: BP 154/65
[2023-01-25] MEDS ORDERED: SODIUM CHLORIDE 0.9% 1,000 ML IV ONE (09:15)
[2023-01-25] MEDS: CEFEPIME 1GM/ 50ML 50 ML IV SCH ×2 (10:12→22:11)
[2023-01-25] MEDS: CYANOCOBALAMIN 500 MCG TAB PO SCH (10:13)
[2023-01-25 12:00] VITALS: BP 135/70
[2023-01-25] MEDS: SODIUM CHLORIDE 0.9% 1,000 ML IV SCH ×2 (15:00→22:20)
[2023-01-25] MEDS: DAPTOmycin 500 MG in SODIUM CHL 0.9% 50 ML IV SCH (15:24)
[2023-01-25 16:00] VITALS: BP 126/66
[2023-01-25 22:00] VITALS: BP 106/61
[2023-01-26 05:00] VITALS: BP 128/62
[2023-01-26 05:27] LABS: Basophils # (auto) 0 10 ^3/uL (0-0.2); Eosinophils # (auto) 0.1 10 ^3/uL (0-0.8); Monocytes # (auto) 0.5 10 ^3/uL (0-1.3); Neutrophils # (auto) 2.3 10 ^3/uL (1.6-8.6)
[2023-01-26 05:29] LABS: Basophils % (auto) 0.4 % (0.0-2.0); Eosinophils % (auto) 1.6 % (0.0-7.0); Hematocrit 34.9 % (41.0-53.0); Hemoglobin 11.8 g/dL (13.5-17.5); Lymphocytes # (auto) 0.7 10 ^3/uL (0.4-5.4); Lymphocytes % (auto) 20.5 % (10.0-50.0); Mean Corpuscular Hemoglobin 29.8 pg (28.0-32.0); Mean Corpuscular Hgb Conc. 33.9 g/dL (32.0-36.0); Mean Corpuscular Volume 87.8 fL (80.0-100.0); Monocytes % (auto) 14.4 % (0.0-12.0); Neutrophils % (auto) 63.1 % (37.0-80.0); Red Blood Cells 3.97 10^6/uL (4.5-5.90); Red Cell Distribution Width 16.1 % (11.8-14.3); White Blood Cell 3.6 10^3/uL (4.4-10.8)
[2023-01-26 05:34] LABS: BUN/Creatinine Ratio 31.9 (10.0-20.0); Calcium 9.4 mg/dL (8.5-10.1); Potassium 4.1 mmol/L (3.5-5.1)
[2023-01-26] MEDS: ACCU-CHEK COMFORT CURVE STRIP VI SCH ×4 (05:39→23:40)
[2023-01-26] MEDS: InsuLIN REG 1unit/0.01ml Soln (100units/ml) SC SCH ×5 (05:40→23:41)
[2023-01-26 08:00] VITALS: BP 139/58
[2023-01-26] MEDS: CEFEPIME 1GM/ 50ML 50 ML IV SCH ×2 (08:41→21:30)
[2023-01-26] MEDS: CYANOCOBALAMIN 500 MCG TAB PO SCH (08:41)
[2023-01-26 12:00] VITALS: BP 120/65
[2023-01-26] MEDS: DAPTOmycin 500 MG in SODIUM CHL 0.9% 50 ML IV SCH (15:53)
[2023-01-26 16:00] VITALS: BP 124/70
[2023-01-26] MEDS: SODIUM CHLORIDE 0.9% 1,000 ML IV SCH ×2 (17:40→21:28)
[2023-01-26] MEDS: MYCOPHENOLATE 500 MG TAB PO SCH (21:29)
[2023-01-26] MEDS: TACROLIMUS 1 MG CAP PO SCH (21:29)
[2023-01-26 22:00] VITALS: BP 129/43
[2023-01-27 05:25] VITALS: BP 143/56
[2023-01-27] MEDS: HYDROcodone-ACET 5/325MG TAB PO PRN (05:46)
[2023-01-27] MEDS: ACCU-CHEK COMFORT CURVE STRIP VI SCH ×3 (05:48→17:33)
[2023-01-27] MEDS: InsuLIN REG 1unit/0.01ml Soln (100units/ml) SC SCH ×3 (05:49→17:34)
[2023-01-27 06:37] LABS: Basophils # (auto) 0 10 ^3/uL (0-0.2); Eosinophils # (auto) 0.1 10 ^3/uL (0-0.8); Hemoglobin 11.2 g/dL (13.5-17.5); Lymphocytes # (auto) 0.7 10 ^3/uL (0.4-5.4); Mean Corpuscular Volume 87.4 fL (80.0-100.0); Monocytes # (auto) 0.7 10 ^3/uL (0-1.3); Neutrophils # (auto) 2.6 10 ^3/uL (1.6-8.6); White Blood Cell 4.1 10^3/uL (4.4-10.8)
[2023-01-27 06:40] LABS: Basophils % (auto) 0.5 % (0.0-2.0); Hematocrit 32.4 % (41.0-53.0); Lymphocytes % (auto) 16.3 % (10.0-50.0); Mean Corpuscular Hemoglobin 30.2 pg (28.0-32.0); Mean Corpuscular Hgb Conc. 34.5 g/dL (32.0-36.0); Monocytes % (auto) 17.1 % (0.0-12.0); Neutrophils % (auto) 63.1 % (37.0-80.0); Nucleated Red Blood Cells % 0.3 %; Red Blood Cells 3.71 10^6/uL (4.5-5.90); Red Cell Distribution Width 15.8 % (11.8-14.3)
[2023-01-27 06:48] LABS: BUN/Creatinine Ratio 26.7 (10.0-20.0); Calcium 8.9 mg/dL (8.5-10.1); Potassium 4.5 mmol/L (3.5-5.1)
[2023-01-27 09:00] VITALS: BP 108/52
[2023-01-27] MEDS: DAPTOmycin 500 MG in SODIUM CHL 0.9% 50 ML IV SCH ×2 (09:47→15:38)
[2023-01-27] MEDS: CYANOCOBALAMIN 500 MCG TAB PO SCH (09:47)
[2023-01-27] MEDS: predniSONE 5 MG TAB PO SCH (09:47)
[2023-01-27] MEDS: MYCOPHENOLATE 500 MG TAB PO SCH ×2 (09:50→21:39)
[2023-01-27] MEDS: TACROLIMUS 1 MG CAP PO SCH ×2 (09:50→21:39)
[2023-01-27] MEDS: CEFEPIME 1GM/ 50ML 50 ML IV SCH ×2 (09:51→21:38)
[2023-01-27 13:00] VITALS: BP 128/57
[2023-01-27 17:00] VITALS: BP 140/60
[2023-01-27] MEDS: SODIUM CHLORIDE 0.9% 1,000 ML IV SCH (21:38)
[2023-01-27 22:00] VITALS: BP 122/57
[2023-01-28] MEDS: ACCU-CHEK COMFORT CURVE STRIP VI SCH ×4 (00:29→17:39)
[2023-01-28] MEDS: InsuLIN REG 1unit/0.01ml Soln (100units/ml) SC SCH ×4 (00:29→17:39)
[2023-01-28 05:00] VITALS: BP 132/56
[2023-01-28 09:00] VITALS: BP 153/69
[2023-01-28] MEDS: SODIUM CHLORIDE 0.9% 1,000 ML IV SCH (09:40)
[2023-01-28] MEDS: CYANOCOBALAMIN 500 MCG TAB PO SCH (10:02)
[2023-01-28] MEDS: CEFEPIME 1GM/ 50ML 50 ML IV SCH ×2 (10:02→21:39)
[2023-01-28] MEDS: MYCOPHENOLATE 500 MG TAB PO SCH ×2 (10:02→21:39)
[2023-01-28] MEDS: predniSONE 5 MG TAB PO SCH (10:02)
[2023-01-28] MEDS: TACROLIMUS 1 MG CAP PO SCH ×2 (10:03→21:39)
[2023-01-28 12:39] VITALS: BP 157/79
[2023-01-28] MEDS: DAPTOmycin 500 MG in SODIUM CHL 0.9% 50 ML IV SCH (15:26)
[2023-01-28 16:46] VITALS: BP 161/60
[2023-01-28] MEDS ORDERED: hydrALAZINE HCL 20 MG/ML VL IV ONE (17:30)
[2023-01-28 18:08] LABS: Urine Bacteria NONE SEEN /hpf (None Seen); Urine Blood Negative /uL (Negative); Urine Specific Gravity 1.012 (1.001-1.035); Urine WBC <1 /hpf (0 - 3)
[2023-01-28 18:10] VITALS: BP 149/68
[2023-01-28] MEDS: HYDROcodone-ACET 5/325MG TAB PO PRN (21:40)
[2023-01-28] MEDS: Juven Orange Powder PACKET 27.5gm PO SCH (21:43)
[2023-01-28 22:00] VITALS: BP 133/64
[2023-01-29] MEDS: InsuLIN REG 1unit/0.01ml Soln (100units/ml) SC SCH ×4 (00:40→18:41)
[2023-01-29 05:00] VITALS: BP 121/67
[2023-01-29] MEDS: ACCU-CHEK COMFORT CURVE STRIP VI SCH ×4 (05:49→17:41)
[2023-01-29 07:03] LABS: Hematocrit 34.1 % (41.0-53.0); Hemoglobin 11.6 g/dL (13.5-17.5); Mean Corpuscular Hemoglobin 29.5 pg (28.0-32.0); Mean Corpuscular Hgb Conc. 33.9 g/dL (32.0-36.0); Mean Corpuscular Volume 86.8 fL (80.0-100.0); Red Blood Cells 3.93 10^6/uL (4.5-5.90); Red Cell Distribution Width 15.8 % (11.8-14.3); White Blood Cell 4.6 10^3/uL (4.4-10.8)
[2023-01-29 07:13] LABS: Basophils % (manual) 0 (0.0-2.0); Blast Cells 0; Metamyelocytes % 0; Myelocytes % 0; Promyelocytes % 0; Reactive Lymphocytes 0
[2023-01-29 07:22] LABS: Potassium 4.3 mmol/L (3.5-5.1)
[2023-01-29 07:30] LABS: BUN/Creatinine Ratio 27.3 (10.0-20.0); Calcium 9.1 mg/dL (8.5-10.1)
[2023-01-29 08:24] LABS: Band Neutrophils % (manual) 3; Eosinophils % (manual) 2 (0-7); Lymphocytes % (manual) 16 (10.0-50.0); Monocytes % (manual) 11 (0-12)
[2023-01-29 09:00] VITALS: BP 137/30
[2023-01-29] MEDS: CYANOCOBALAMIN 500 MCG TAB PO SCH (09:42)
[2023-01-29] MEDS: TACROLIMUS 1 MG CAP PO SCH (09:42)
[2023-01-29] MEDS: predniSONE 5 MG TAB PO SCH (09:42)
[2023-01-29] MEDS: CEFEPIME 1GM/ 50ML 50 ML IV SCH (09:43)
[2023-01-29] MEDS: MYCOPHENOLATE 500 MG TAB PO SCH (09:43)
[2023-01-29] MEDS: Juven Orange Powder PACKET 27.5gm PO SCH (09:49)
[2023-01-29 13:00] VITALS: BP 148/81
[2023-01-29] MEDS: DAPTOmycin 500 MG in SODIUM CHL 0.9% 50 ML IV SCH (14:18)
[2023-01-29 17:00] VITALS: BP 155/54
== END 2023-01-29 19:10 | DRG 255 ==
LOC: EDBD 18:44 → ER 18:44 → OVERFLOW 01-24 02:45 → CENTRAL 01-24 10:14 → TELE-CENTR 01-25 03:02 → CENTRAL 01-27 12:17
PROVIDERS: ADMIT Nurse Practitioner; ATTEND Internal Medicine
PROC: 0Y6R0Z0 Detachment at Right 2nd Toe, Complete, Open Approach (ICD-10-PCS; principal; 2023-01-24 07:54)
DX: E11.52 Type 2 diabetes mellitus with diabetic peripheral angiopathy with gangrene (principal); E43 Unspecified severe protein-calorie malnutrition; E87.20 Acidosis, unspecified; L03.90 Cellulitis, unspecified; N17.9 Acute kidney failure, unspecified; I96 Gangrene, not elsewhere classified; E11.621 Type 2 diabetes mellitus with foot ulcer; D69.6 Thrombocytopenia, unspecified; I12.9 Hypertensive chronic kidney disease with stage 1 through stage 4 chronic kidney disease, or unspecified chronic kidney disease; N18.2 Chronic kidney disease, stage 2 (mild); D70.9 Neutropenia, unspecified; E11.22 Type 2 diabetes mellitus with diabetic chronic kidney disease; E78.5 Hyperlipidemia, unspecified; D69.59 Other secondary thrombocytopenia; L97.509 Non-pressure chronic ulcer of other part of unspecified foot with unspecified severity; Z79.4 Long term (current) use of insulin; Z79.899 Other long term (current) drug therapy; Z83.3 Family history of diabetes mellitus; Z82.49 Family history of ischemic heart disease and other diseases of the circulatory system; Z68.20 Body mass index [BMI] 20.0-20.9, adult
CPT/HCPCS: 36415; 73630; 80048; 80053; 81001; 82550; 82962; 83605; 85007; 85025; 85027; 85610; 85652; 85730; 86141; 87040; 87075; 87077; 87081; 87205; G0378; J0696; J1100; J1815; J1885; J2001; J2405; J2704; J3490; J7507; J7517

== ENCOUNTER 2023-04-08 10:14 | Inpatient (IN) | payer MEDICARE, MEDICAID ==
[~2023-04-08] VITALS: Ht 160 cm; Wt 57.5 kg
[~2023-04-08 10:14] MED LIST changes: +ENAL1TAB48 PO; -ENAL20TA8 PO; -TAM04C PO; +TAMS-35 PO
[2023-04-08 11:28] LABS: Basophils # (auto) 0 10 ^3/uL (0-0.2); Basophils % (auto) 0.4 % (0.0-2.0); Eosinophils # (auto) 0 10 ^3/uL (0-0.8); Eosinophils % (auto) 0.5 % (0.0-7.0); Hematocrit 39.8 % (41.0-53.0); Hemoglobin 13.2 g/dL (13.5-17.5); Lymphocytes # (auto) 0.5 10 ^3/uL (0.4-5.4); Mean Corpuscular Hemoglobin 29.7 pg (28.0-32.0); Mean Corpuscular Hgb Conc. 33.2 g/dL (32.0-36.0); Mean Corpuscular Volume 89.5 fL (80.0-100.0); Monocytes # (auto) 0.7 10 ^3/uL (0-1.3); Monocytes % (auto) 6.8 % (0.0-12.0); Neutrophils # (auto) 9.5 10 ^3/uL (1.6-8.6); Neutrophils % (auto) 87.3 % (37.0-80.0); Red Blood Cells 4.44 10^6/uL (4.5-5.90); White Blood Cell 10.8 10^3/uL (4.4-10.8)
[2023-04-08 12:08] LABS: Potassium 4.4 mmol/L (3.5-5.1)
[2023-04-08 12:16] LABS: BUN/Creatinine Ratio 23.3 (10.0-20.0); Bilirubin, Total 0.6 mg/dL (0.2-1.0); Calcium 9.2 mg/dL (8.5-10.1); Lactic Acid w/Reflex 2.1 mmol/L (0.4-2.0)
[2023-04-08 16:23] VITALS: PULSE 100; RESP 20; O2SAT 94
[2023-04-08 18:50] VITALS: PULSE 102; RESP 18; O2SAT 96
[2023-04-08] MEDS ORDERED: ACETAMINOPHEN 325 MG TAB PO PRN (19:15)
[2023-04-08] MEDS ORDERED: SODIUM CHLORIDE 0.9% 1,000 ML IV ONE (19:15)
[2023-04-08] MEDS ORDERED: DEXTROSE (50%) 50ML SYRG IV PRN (19:15)
[2023-04-08 20:31] LABS: INR 1.12 (0.9-1.15); Partial Thromboplastin Time 32.5 SEC (24.5-34.5)
[2023-04-08] MEDS: CLINDAMYCIN 600MG IV 50 ML IV SCH (22:00)
[2023-04-08 22:51] VITALS: PULSE 102; RESP 17; O2SAT 95
[2023-04-08] MEDS ORDERED: LABETALOL HCL 5 MG/ML 4ML SYRINGE IV ONE (23:30)
[2023-04-08] MEDS: ACCU-CHEK COMFORT CURVE STRIP VI SCH (23:49)
[2023-04-08] MEDS: HYDROcodone-ACET 5/325MG TAB PO PRN (23:51)
[2023-04-09] MEDS: InsuLIN REG 1unit/0.01ml Soln (100units/ml) SC SCH ×5 (00:07→22:41)
[2023-04-09 05:00] VITALS: BP 138/60; PULSE 86; RESP 17; TEMP 98.4; O2SAT 94
[2023-04-09] MEDS: CLINDAMYCIN 600MG IV 50 ML IV SCH ×2 (06:00→14:00)
[2023-04-09] MEDS: ACCU-CHEK COMFORT CURVE STRIP VI SCH ×4 (06:13→22:38)
[2023-04-09 06:15] LABS: Basophils # (auto) 0 10 ^3/uL (0-0.2); Basophils % (auto) 0.3 % (0.0-2.0); Eosinophils # (auto) 0 10 ^3/uL (0-0.8); Eosinophils % (auto) 0.6 % (0.0-7.0); Hematocrit 35.9 % (41.0-53.0); Lymphocytes # (auto) 0.7 10 ^3/uL (0.4-5.4); Lymphocytes % (auto) 8.3 % (10.0-50.0); Mean Corpuscular Hgb Conc. 33.4 g/dL (32.0-36.0); Mean Corpuscular Volume 89.7 fL (80.0-100.0); Monocytes # (auto) 0.8 10 ^3/uL (0-1.3); Monocytes % (auto) 10.1 % (0.0-12.0); Neutrophils # (auto) 6.7 10 ^3/uL (1.6-8.6); Neutrophils % (auto) 80.7 % (37.0-80.0); Red Cell Distribution Width 14.5 % (11.8-14.3); White Blood Cell 8.3 10^3/uL (4.4-10.8)
[2023-04-09 06:28] LABS: Potassium 4.1 mmol/L (3.5-5.1)
[2023-04-09 06:35] LABS: Albumin 2.4 g/dL (3.4-5.0); BUN/Creatinine Ratio 20.4 (10.0-20.0); Bilirubin, Total 0.4 mg/dL (0.2-1.0); Calcium 8.8 mg/dL (8.5-10.1)
[2023-04-09 07:20] LABS: Urine Bacteria FEW /hpf (None Seen); Urine Blood Negative /uL (Negative); Urine Sperm PRESENT /hpf (None Seen); Urine WBC <1 /hpf (0 - 3)
[2023-04-09 08:00] VITALS: RESP 17; O2SAT 96
[2023-04-09 09:00] VITALS: BP 162/76; PULSE 90; RESP 18; TEMP 98.1; O2SAT 98
[2023-04-09] MEDS: HYDROcodone-ACET 5/325MG TAB PO PRN ×3 (09:08→22:40)
[2023-04-09] MEDS: ATENOLOL 25 MG TAB PO SCH (09:09)
[2023-04-09] MEDS ORDERED: PANTOPRAZOLE 40 MG TAB PO SCH (10:00)
[2023-04-09 12:38] VITALS: BP 154/68; PULSE 81; RESP 18; TEMP 97.4; O2SAT 90
[2023-04-09] MEDS ORDERED: LOSARTAN POTASSIUM 50 MG TAB PO ONE (15:30)
[2023-04-09] MEDS ORDERED: VANCOMYCIN PER PHARMACY 0 MG IV SCH (15:30)
[2023-04-09] MEDS ORDERED: VANCOMYCIN 1GM/250ML 250 ML IV ONE (17:00)
[2023-04-09] MEDS ORDERED: MYCO500T PO (17:53)
[2023-04-09 20:00] VITALS: RESP 17; O2SAT 96
[2023-04-09 22:00] VITALS: BP 159/66; PULSE 85; RESP 18; TEMP 99; O2SAT 95
[2023-04-09] MEDS: MYCOPHENOLATE 500 MG TAB PO SCH (22:38)
[2023-04-09] MEDS: TACROLIMUS 1 MG CAP PO SCH (22:38)
[2023-04-09] MEDS: CEFEPIME 2GM/50ML NS 50 ML IV SCH (22:39)
[2023-04-10] VITALS (7 sets, daily range): BP systolic 120–149; BP diastolic 46–64; PULSE 75–92; RESP 14–18; TEMP 98–99; O2SAT 92–97
[2023-04-10] MEDS: HYDROcodone-ACET 5/325MG TAB PO PRN ×3 (02:43→20:27)
[2023-04-10 05:44] LABS: Basophils # (auto) 0.1 10 ^3/uL (0-0.2); Basophils % (auto) 0.8 % (0.0-2.0); Eosinophils # (auto) 0.1 10 ^3/uL (0-0.8); Hematocrit 37.5 % (41.0-53.0); Hemoglobin 12.3 g/dL (13.5-17.5); Lymphocytes # (auto) 0.6 10 ^3/uL (0.4-5.4); Lymphocytes % (auto) 5.1 % (10.0-50.0); Mean Corpuscular Hemoglobin 29.1 pg (28.0-32.0); Mean Corpuscular Hgb Conc. 32.7 g/dL (32.0-36.0); Mean Corpuscular Volume 88.8 fL (80.0-100.0); Monocytes % (auto) 8.7 % (0.0-12.0); Neutrophils # (auto) 9.5 10 ^3/uL (1.6-8.6); Neutrophils % (auto) 84.4 % (37.0-80.0); Red Blood Cells 4.22 10^6/uL (4.5-5.90); Red Cell Distribution Width 14.8 % (11.8-14.3); White Blood Cell 11.2 10^3/uL (4.4-10.8)
[2023-04-10 05:55] LABS: BUN/Creatinine Ratio 20.4 (10.0-20.0); Calcium 8.7 mg/dL (8.5-10.1); Potassium 4.2 mmol/L (3.5-5.1)
[2023-04-10] MEDS: ACCU-CHEK COMFORT CURVE STRIP VI SCH ×4 (05:59→21:19)
[2023-04-10] MEDS: CEFEPIME 2GM/50ML NS 50 ML IV SCH ×2 (05:59→16:54)
[2023-04-10] MEDS: InsuLIN REG 1unit/0.01ml Soln (100units/ml) SC SCH ×4 (06:37→21:30)
[2023-04-10] MEDS ORDERED: VANCOMYCIN 1GM/250ML 250 ML IV SCH (11:00)
[2023-04-10] MEDS: VANCOMYCIN 1GM/250ML 250 ML IV SCH ×2 (11:24→23:06)
[2023-04-10] MEDS: predniSONE 5 MG TAB PO SCH (11:25)
[2023-04-10] MEDS: ATENOLOL 25 MG TAB PO SCH (11:25)
[2023-04-10] MEDS: TACROLIMUS 1 MG CAP PO SCH ×2 (11:26→21:19)
[2023-04-10] MEDS: LOSARTAN POTASSIUM 50 MG TAB PO SCH (11:26)
[2023-04-10] MEDS: MYCOPHENOLATE 500 MG TAB PO SCH ×2 (11:26→21:18)
[2023-04-11] VITALS (8 sets, daily range): BP systolic 121–145; BP diastolic 51–74; PULSE 74–88; RESP 12–17; TEMP 98.1–98.6; O2SAT 92–98
[2023-04-11] MEDS: CEFEPIME 2GM/50ML NS 50 ML IV SCH ×2 (06:26→18:28)
[2023-04-11] MEDS: ACCU-CHEK COMFORT CURVE STRIP VI SCH ×4 (06:31→22:36)
[2023-04-11] MEDS: InsuLIN REG 1unit/0.01ml Soln (100units/ml) SC SCH ×4 (06:40→22:00)
[2023-04-11] MEDS ORDERED: LIDOCAINE 2%HCL (LOCAL ANESTH.) INJ 20ML MDV ONE (09:59)
[2023-04-11] MEDS ORDERED: IODIXANOL 320MG/ML 100ML BTL IV ONE ×2 (09:59→12:01)
[2023-04-11] MEDS: MYCOPHENOLATE 500 MG TAB PO SCH ×2 (10:00→22:32)
[2023-04-11] MEDS: ATENOLOL 25 MG TAB PO SCH (10:00)
[2023-04-11] MEDS: TACROLIMUS 1 MG CAP PO SCH ×2 (10:00→22:32)
[2023-04-11] MEDS: LOSARTAN POTASSIUM 50 MG TAB PO SCH (10:00)
[2023-04-11] MEDS: predniSONE 5 MG TAB PO SCH (10:00)
[2023-04-11] MEDS: VANCOMYCIN 1GM/250ML 250 ML IV SCH (11:00)
[2023-04-11] MEDS ORDERED: ANGIOMAX 250 MG VIAL IV ONE (11:54)
[2023-04-11] MEDS ORDERED: fentaNYL CITRATE 100 MCG/2 ML VL ONE (11:55)
[2023-04-11] MEDS ORDERED: MIDAZOLAM HCL 2MG/2ML 2ml VIAL (1mg/ml) ONE (11:55)
[2023-04-11] MEDS ORDERED: SODIUM CHL 0.9% 0 ML ONE (11:55)
[2023-04-11] MEDS: HYDROcodone-ACET 5/325MG TAB PO PRN ×2 (12:44→22:35)
[2023-04-11 14:54] LABS: Basophils # (auto) 0 10 ^3/uL (0-0.2); Basophils % (auto) 0.2 % (0.0-2.0); Eosinophils # (auto) 0.1 10 ^3/uL (0-0.8); Eosinophils % (auto) 0.7 % (0.0-7.0); Hemoglobin 12.3 g/dL (13.5-17.5); Lymphocytes # (auto) 0.5 10 ^3/uL (0.4-5.4); Lymphocytes % (auto) 4.2 % (10.0-50.0); Mean Corpuscular Hgb Conc. 32.5 g/dL (32.0-36.0); Mean Corpuscular Volume 89.2 fL (80.0-100.0); Monocytes # (auto) 0.9 10 ^3/uL (0-1.3); Monocytes % (auto) 7.9 % (0.0-12.0); Red Blood Cells 4.26 10^6/uL (4.5-5.90); Red Cell Distribution Width 14.3 % (11.8-14.3); White Blood Cell 11.5 10^3/uL (4.4-10.8)
[2023-04-11 15:08] LABS: Potassium 4.3 mmol/L (3.5-5.1)
[2023-04-11 15:17] LABS: Albumin 2.5 g/dL (3.4-5.0); Bilirubin, Total 0.7 mg/dL (0.2-1.0); Calcium 8.8 mg/dL (8.5-10.1); Total Protein 6.4 g/dL (6.4-8.2)
[2023-04-11] MEDS ORDERED: LIDOCAINE 1% (LOCAL ANESTH.) PF 5ml SDV ID ONE (16:45)
[2023-04-11] MEDS: SODIUM CHLOR 0.9% PF (SALINE LOCK) 10ML VIAL/SYR IV SCH (22:35)
[2023-04-11] MEDS ORDERED: VANCOMYCIN 1GM/250ML 250 ML IV SCH (23:00)
[2023-04-12] MEDS ORDERED: VANCOMYCIN 1GM/250ML 250 ML IV SCH (01:00)
[2023-04-12 05:00] VITALS: BP 118/54; PULSE 88; RESP 16; TEMP 97.8; O2SAT 96
[2023-04-12] MEDS: CEFEPIME 2GM/50ML NS 50 ML IV SCH (06:25)
[2023-04-12] MEDS: ACCU-CHEK COMFORT CURVE STRIP VI SCH ×3 (06:46→17:00)
[2023-04-12] MEDS: InsuLIN REG 1unit/0.01ml Soln (100units/ml) SC SCH ×3 (06:49→17:00)
[2023-04-12] MEDS: HYDROcodone-ACET 5/325MG TAB PO PRN ×2 (06:56→11:43)
[2023-04-12 07:47] LABS: Albumin 2.2 g/dL (3.4-5.0); Calcium 8.8 mg/dL (8.5-10.1)
[2023-04-12 07:52] LABS: BUN/Creatinine Ratio 19.6 (10.0-20.0); Bilirubin, Total 0.9 mg/dL (0.2-1.0)
[2023-04-12 08:00] VITALS: BP 154/59; PULSE 87; PULSE 88; RESP 16; TEMP 98.2; O2SAT 94; O2SAT 96
[2023-04-12 08:45] LABS: Basophils # (auto) 0 10 ^3/uL (0-0.2); Basophils % (auto) 0.3 % (0.0-2.0); Eosinophils # (auto) 0.1 10 ^3/uL (0-0.8); Eosinophils % (auto) 0.9 % (0.0-7.0); Hematocrit 38.7 % (41.0-53.0); Hemoglobin 12.6 g/dL (13.5-17.5); Lymphocytes # (auto) 0.7 10 ^3/uL (0.4-5.4); Lymphocytes % (auto) 5.3 % (10.0-50.0); Mean Corpuscular Hemoglobin 28.9 pg (28.0-32.0); Mean Corpuscular Hgb Conc. 32.4 g/dL (32.0-36.0); Mean Corpuscular Volume 89.2 fL (80.0-100.0); Monocytes # (auto) 1.1 10 ^3/uL (0-1.3); Monocytes % (auto) 8.3 % (0.0-12.0); Neutrophils # (auto) 10.9 10 ^3/uL (1.6-8.6); Neutrophils % (auto) 85.2 % (37.0-80.0); Red Blood Cells 4.34 10^6/uL (4.5-5.90); Red Cell Distribution Width 14.6 % (11.8-14.3); White Blood Cell 12.9 10^3/uL (4.4-10.8)
[2023-04-12] MEDS: MYCOPHENOLATE 500 MG TAB PO SCH (10:25)
[2023-04-12] MEDS: SODIUM CHLOR 0.9% PF (SALINE LOCK) 10ML VIAL/SYR IV SCH (10:25)
[2023-04-12] MEDS: LOSARTAN POTASSIUM 50 MG TAB PO SCH (10:26)
[2023-04-12] MEDS: predniSONE 5 MG TAB PO SCH (10:26)
[2023-04-12] MEDS: ATENOLOL 25 MG TAB PO SCH (10:27)
[2023-04-12] MEDS: TACROLIMUS 1 MG CAP PO SCH (10:27)
[2023-04-12] MEDS ORDERED: CLOPIDOGREL BISULFATE 75 MG TAB PO ONE (11:45)
[2023-04-12 12:00] VITALS: BP 143/74; PULSE 82; RESP 16; TEMP 97.9; O2SAT 100
[2023-04-12 16:00] VITALS: BP 139/56; PULSE 75; RESP 16; TEMP 97.4; O2SAT 99
[2023-04-12] MEDS ORDERED: ERTAPENEM SOD INJ 1 GM in SODIUM CHL 0.9% 50 ML IV ONE (17:00)
[2023-04-12 18:09] VITALS: BP 139/56; PULSE 75; RESP 16; TEMP 97.4; O2SAT 99
[2023-04-12] MEDS ORDERED: ATORVASTATIN 20 MG TAB PO SCH (22:00)
[2023-04-13] MEDS ORDERED: CLOPIDOGREL BISULFATE 75 MG TAB PO SCH (10:00)
== END 2023-04-12 19:25 | disposition home health service (06) | DRG 637 ==
LOC: EDBD 10:14 → ER 10:14 → OVERFLOW 19:10 → EAST 22:12
PROVIDERS: ADMIT Internal Medicine
PROC: B41G1ZZ Fluoroscopy of Left Lower Extremity Arteries using Low Osmolar Contrast (ICD-10-PCS; principal; 2023-04-11)
PROC: B41F1ZZ Fluoroscopy of Right Lower Extremity Arteries using Low Osmolar Contrast (ICD-10-PCS; 2023-04-11)
PROC: 02H633Z Insertion of Infusion Device into Right Atrium, Percutaneous Approach (ICD-10-PCS; 2023-04-11)
PROC: B548ZZA Ultrasonography of Superior Vena Cava, Guidance (ICD-10-PCS; 2023-04-11)
DX: E11.621 Type 2 diabetes mellitus with foot ulcer (principal); E43 Unspecified severe protein-calorie malnutrition; Z94.0 Kidney transplant status; M86.8X7 Other osteomyelitis, ankle and foot; T86.19 Other complication of kidney transplant; E11.69 Type 2 diabetes mellitus with other specified complication; E86.0 Dehydration; N18.2 Chronic kidney disease, stage 2 (mild); I12.9 Hypertensive chronic kidney disease with stage 1 through stage 4 chronic kidney disease, or unspecified chronic kidney disease; M10.9 Gout, unspecified; E78.5 Hyperlipidemia, unspecified; E11.51 Type 2 diabetes mellitus with diabetic peripheral angiopathy without gangrene; E11.22 Type 2 diabetes mellitus with diabetic chronic kidney disease; Y83.8 Other surgical procedures as the cause of abnormal reaction of the patient, or of later complication, without mention of misadventure at the time of the procedure; Z79.4 Long term (current) use of insulin; Z89.411 Acquired absence of right great toe; Z83.3 Family history of diabetes mellitus; Z82.49 Family history of ischemic heart disease and other diseases of the circulatory system; Z68.23 Body mass index [BMI] 23.0-23.9, adult; Y92.89 Other specified places as the place of occurrence of the external cause
CPT/HCPCS: 36415; 36569; 71045; 73630; 73706; 73718; 75716; 80048; 80053; 80202; 81001; 82607; 82962; 83605; 85025; 85610; 85730; 87040; 87077; 87081; 87186; 87205; 93005; 93926; 96360; 99152; 99153; C1769; G0378; J0692; J1335; J1815; J2250; J3490; J7507; J7517; Q9967

== ENCOUNTER → 2023-05-24 | Outpatient (CLI) | payer MEDICARE, MEDICAID ==
[2023-05-24 13:59] LABS: Urine Bacteria NONE SEEN /hpf (None Seen); Urine Blood 1+ /uL (Negative); Urine Clarity HAZY (Clear); Urine Color Yellow (Yellow); Urine Mucus FEW (None Seen); Urine Protein, UAD 2+ (Negative); Urine Specific Gravity 1.017 (1.001-1.035); Urine Urobilinogen Normal (Negative); Urine WBC 1 /hpf (0 - 3); Urine pH 5.5 (5.0-8.0)
[2023-05-24 14:41] LABS: Anion Gap 9.7 (5-15); Carbon Dioxide 20.3 mmol/L (20-30); Chloride 109 mmol/L (98-107); Potassium 4.2 mmol/L (3.5-5.1); Sodium 139 mmol/L (136-145)
[2023-05-24 14:42] LABS: Calcium 8.6 mg/dL (8.5-10.1)
[2023-05-24 14:47] LABS: BUN/Creatinine Ratio 16.8 (10.0-20.0); Blood Urea Nitrogen 38 mg/dL (9-23); Glucose 174 mg/dL (74-106)
[2023-05-24 14:49] LABS: Phosphorus 4.3 mg/dL (2.4-5.1)
== END | disposition home or self-care (01) ==
LOC: LAB 13:22
PROVIDERS: ATTEND Internal Medicine
DX: N17.9 Acute kidney failure, unspecified (principal)
CPT/HCPCS: 36415; 80048; 81001; 84100

== ENCOUNTER 2023-05-30 21:12 | Inpatient (IN) | payer MEDICARE, MEDICAID ==
[~2023-05-30] VITALS: Ht 157.5 cm; Wt 70.3 kg
[2023-05-30 22:18] LABS: Basophils # (auto) 0 10 ^3/uL (0-0.2); Basophils % (auto) 0.3 % (0.0-2.0); Eosinophils # (auto) 0 10 ^3/uL (0-0.8); Eosinophils % (auto) 0.2 % (0.0-7.0); Hematocrit 36.7 % (41.0-53.0); Hemoglobin 11.8 g/dL (13.5-17.5); Lymphocytes # (auto) 0.8 10 ^3/uL (0.4-5.4); Lymphocytes % (auto) 4.8 % (10.0-50.0); Mean Corpuscular Hemoglobin 27.8 pg (28.0-32.0); Mean Corpuscular Hgb Conc. 32.1 g/dL (32.0-36.0); Mean Corpuscular Volume 86.6 fL (80.0-100.0); Monocytes # (auto) 0.7 10 ^3/uL (0-1.3); Monocytes % (auto) 4.6 % (0.0-12.0); Neutrophils # (auto) 14.3 10 ^3/uL (1.6-8.6); Neutrophils % (auto) 90.1 % (37.0-80.0); Red Blood Cells 4.24 10^6/uL (4.5-5.90); Red Cell Distribution Width 16.3 % (11.8-14.3); White Blood Cell 15.8 10^3/uL (4.4-10.8)
[2023-05-30 22:28] LABS: Rapid Influenza A Negative (Negative); Rapid Influenza B Negative (Negative)
[2023-05-30 22:30] LABS: COVID19 ANTIGEN SOFIA FIA POSITIVE (NEGATIVE)
[2023-05-30 22:35] LABS: Lactic Acid w/Reflex 2.3 mmol/L (0.4-2.0)
[2023-05-30 22:36] LABS: Alanine Aminotransferase 18 U/L (7-40); Albumin 3.4 g/dL (3.2-4.8); Alkaline Phosphatase 107 U/L (46-116); Anion Gap 14.8 (5-15); Aspartate Aminotransferase 22 U/L (13-40); Bilirubin, Total 0.3 mg/dL (0.2-1.0); Blood Urea Nitrogen 63 mg/dL (9-23); Calcium 7.8 mg/dL (8.7-10.4); Carbon Dioxide 14.2 mmol/L (20-30); Chloride 103 mmol/L (98-107); Glucose 260 mg/dL (74-106); Lipase 21 U/L (12-53); Magnesium 1.2 mg/dL (1.6-2.6); Potassium 3.6 mmol/L (3.5-5.1)
[2023-05-30 22:37] LABS: Total Protein 6.7 g/dL (5.7-8.2); Urine Amorphous Crystal FEW /hpf (None Seen); Urine Bacteria FEW /hpf (None Seen); Urine Blood 1+ /uL (Negative); Urine Clarity HAZY (Clear); Urine Color Yellow (Yellow); Urine Protein, UAD 2+ (Negative); Urine Specific Gravity 1.014 (1.001-1.035); Urine Urobilinogen Normal (Negative); Urine WBC 4 /hpf (0 - 3); Urine pH 5.5 (5.0-8.0)
[2023-05-30 22:40] LABS: Sodium 132 mmol/L (136-145)
[2023-05-31 00:30] VITALS: PULSE 108; RESP 19; O2SAT 96
[2023-05-31] MEDS ORDERED: SODIUM CHLORIDE 0.9% 1,000 ML IV ONE (01:30)
[2023-05-31] MEDS ORDERED: NITROGLYCERIN 0.4 MG SL TAB SL PRN (03:00)
[2023-05-31] MEDS ORDERED: SODIUM CHLORIDE 0.9% 1,000 ML IV SCH (03:00)
[2023-05-31] MEDS ORDERED: HYDROcodone-ACET 5/325MG TAB PO PRN (03:00)
[2023-05-31] MEDS ORDERED: MORPHINE SULFATE INJ 2 MG/ml SYRG IV PRN ×2 (03:00)
[2023-05-31] MEDS ORDERED: DEXTROSE (50%) 50ML SYRG IV PRN (03:00)
[2023-05-31] MEDS: cefTRIAXone 1GM/50ML D5W 50 ML IV ONE ×2 (06:11→09:02)
[2023-05-31] MEDS: MAGNESIUM SULFATE 1GM/100ML 100 ML IV SCH ×2 (06:11→06:58)
[2023-05-31] MEDS: metroNIDAZOLE 500MG/100ML 100 ML IV SCH ×4 (06:11→23:47)
[2023-05-31] MEDS: ACCU-CHEK COMFORT CURVE STRIP VI SCH ×3 (06:28→19:06)
[2023-05-31] MEDS: InsuLIN REG 1unit/0.01ml Soln (100units/ml) SC SCH ×3 (06:33→19:06)
[2023-05-31 08:30] VITALS: PULSE 105; RESP 18; O2SAT 93
[2023-05-31] MEDS ORDERED: cefTRIAXone 1GM/50ML D5W 50 ML IV SCH (09:00)
[2023-05-31] MEDS: ONDANSETRON HCL 4 MG/2 ML VIAL IV PRN (09:59)
[2023-05-31] MEDS ORDERED: PANTOPRAZOLE 40 MG TAB PO SCH (10:00)
[2023-05-31] MEDS ORDERED: MYCOPHENOLATE 250 MG CAP PO SCH (10:00)
[2023-05-31 10:36] LABS: Protein, Urine 179.3 mg/dL (0.0-11.9)
[2023-05-31 10:39] LABS: Creatinine, Urine 73.98 mg/dL (30.0-125.0); Urine Protein/Creatinine Ratio 2.42
[2023-05-31] MEDS: TACROLIMUS 1 MG CAP PO SCH ×2 (11:13→22:00)
[2023-05-31] MEDS: SODIUM BICARBONATE 50ML VIAL 50 ML in SOD CHL 0.45% 1,000 ML IV SCH ×2 (11:13→21:33)
[2023-05-31 15:31] LABS: Alanine Aminotransferase 13 U/L (7-40); Albumin 2.8 g/dL (3.2-4.8); Alkaline Phosphatase 93 U/L (46-116); Anion Gap 14.1 (5-15); Aspartate Aminotransferase 20 U/L (13-40); BUN/Creatinine Ratio 12.8 (10.0-20.0); Blood Urea Nitrogen 63 mg/dL (9-23); Calcium 7.7 mg/dL (8.7-10.4); Carbon Dioxide 13.9 mmol/L (20-30); Chloride 108 mmol/L (98-107); Glucose 92 mg/dL (74-106); Potassium 3.7 mmol/L (3.5-5.1); Sodium 136 mmol/L (136-145)
[2023-05-31 15:32] LABS: Bilirubin, Total 0.4 mg/dL (0.2-1.0); Total Protein 5.5 g/dL (5.7-8.2)
[2023-05-31 19:30] VITALS: PULSE 112; RESP 19; O2SAT 93
[2023-05-31] MEDS: MEROPENEM 500MG IVPB 50 ML IV SCH (21:15)
[2023-06-01] VITALS (92 sets, daily range): BP systolic 72–155; BP diastolic 12–79; PULSE 90–126; RESP 14–43; TEMP 93–99.1; O2SAT 92–99
[2023-06-01] MEDS: ACCU-CHEK COMFORT CURVE STRIP VI SCH ×5 (00:17→23:57)
[2023-06-01] MEDS: ONDANSETRON HCL 4 MG/2 ML VIAL IV PRN (01:15)
[2023-06-01] MEDS ORDERED: OCTREOTIDE ACETATE 100 MCG in SODIUM CHL 0.9% 50 ML IV ONE (01:30)
[2023-06-01] MEDS ORDERED: PANTOPRAZOLE 80 MG in SODIUM CHL 0.9% 100 ML IV ONE (01:30)
[2023-06-01] MEDS ORDERED: ROCURONIUM 10MG/ML 10ML VIAL IV ONE (01:30)
[2023-06-01] MEDS ORDERED: MIDAZOLAM DRIP 50 mg/50mL 50 ML IV ONE (01:30)
[2023-06-01] MEDS ORDERED: ETOMIDATE (2MG/ML) 20ML VIAL IV ONE (01:30)
[2023-06-01] MEDS ORDERED: fentaNYL Drip 2500mCg/250mlNS 250 ML IV ONE (01:33)
[2023-06-01] MEDS: MIDAZOLAM DRIP 50 mg/50mL 50 ML IV SCH (01:56)
[2023-06-01] MEDS: fentaNYL Drip 2500mCg/250mlNS 250 ML IV SCH (01:56)
[2023-06-01] MEDS: OCTREOTIDE ACETATE 500 MCG in SODIUM CHL 0.9% 99 ML IV SCH ×3 (02:20→21:41)
[2023-06-01] MEDS: PANTOPRAZOLE 40mg/50ML NS AE 50 ML IV SCH ×5 (02:25→21:41)
[2023-06-01] MEDS ORDERED: PANTOPRAZOLE 40 MG/10 ML VIAL INJ IV ONE (02:26)
[2023-06-01] MEDS ORDERED: OCTREOTIDE ACETATE 100 MCG/ML VL ONE (02:27)
[2023-06-01] MEDS ORDERED: OCTREOTIDE ACETATE 500 MCG/ML VL ONE (02:27)
[2023-06-01 02:35] LABS: Base Excess -12.5 mmol/L (-2.0-2.0)
[2023-06-01] MEDS: InsuLIN REG 1unit/0.01ml Soln (100units/ml) SC SCH ×5 (06:00→23:57)
[2023-06-01] MEDS: metroNIDAZOLE 500MG/100ML 100 ML IV SCH ×3 (06:32→21:46)
[2023-06-01] MEDS: SODIUM BICARBONATE 50ML VIAL 50 ML in SOD CHL 0.45% 1,000 ML IV SCH ×2 (06:48→12:50)
[2023-06-01] MEDS: MEROPENEM 500MG IVPB 50 ML IV SCH ×2 (08:03→17:41)
[2023-06-01 08:04] LABS: White Blood Cell 19.8 10^3/uL (4.4-10.8)
[2023-06-01 08:07] LABS: Hematocrit 36.6 % (41.0-53.0); Hemoglobin 11.6 g/dL (13.5-17.5); Mean Corpuscular Hemoglobin 27.2 pg (28.0-32.0); Mean Corpuscular Hgb Conc. 31.6 g/dL (32.0-36.0); Red Blood Cells 4.26 10^6/uL (4.5-5.90); Red Cell Distribution Width 16.8 % (11.8-14.3)
[2023-06-01 08:08] LABS: INR 1.64 (0.9-1.15); Partial Thromboplastin Time 59.5 SEC (24.5-34.5); Prothrombin Time 16.7 sec (9.3-11.8)
[2023-06-01 08:16] LABS: Alanine Aminotransferase 14 U/L (7-40); Albumin 2.6 g/dL (3.2-4.8); Alkaline Phosphatase 92 U/L (46-116); Anion Gap 17.3 (5-15); Aspartate Aminotransferase 25 U/L (13-40); BUN/Creatinine Ratio 11.7 (10.0-20.0); Blood Urea Nitrogen 65 mg/dL (9-23); Calcium 7.7 mg/dL (8.5-10.1); Carbon Dioxide 12.7 mmol/L (20-30); Chloride 107 mmol/L (98-107); Glucose 115 mg/dL (74-106); Magnesium 1.6 mg/dL (1.6-2.6); Sodium 137 mmol/L (136-145)
[2023-06-01 08:17] LABS: Bilirubin, Total 0.6 mg/dL (0.2-1.0); Total Protein 5.2 g/dL (5.7-8.2)
[2023-06-01 08:19] LABS: Basophils % (manual) 0 (0.0-2.0); Blast Cells 0; Eosinophils % (manual) 0 (0-7); Metamyelocytes % 0; Myelocytes % 0; Promyelocytes % 0; Reactive Lymphocytes 0
[2023-06-01] MEDS: NOREPINEPHRINE 8 MG/250ML KIT 250 ML IV SCH ×2 (09:00→21:42)
[2023-06-01] MEDS ORDERED: NOREPINEPHRINE 8 MG/250ML KIT 250 ML IV ONE (09:03)
[2023-06-01] MEDS: VASOPRESSIN 20 UNITS in SODIUM CHL 0.9% 99 ML IV SCH ×2 (09:30→20:37)
[2023-06-01 09:40] LABS: Lactic Acid w/Reflex 2.4 mmol/L (0.4-2.0)
[2023-06-01] MEDS: TACROLIMUS 1 MG CAP PO SCH ×3 (10:00→21:43)
[2023-06-01] MEDS ORDERED: SODIUM CHLORIDE 0.9% 1,000 ML IV ONE (12:15)
[2023-06-01 12:36] LABS: Band Neutrophils % (manual) 10; Lymphocytes % (manual) 2 (10.0-50.0); Monocytes % (manual) 5 (0-12); Platelet Estimate Decreased
[2023-06-01] MEDS ORDERED: REMDESIVIR PER PHARMACY 0 ML IV SCH (14:00)
[2023-06-01] MEDS ORDERED: HYDROCORTISONE SOD SUCC 100 MG/2ML INJ VIAL IV SCH (14:00)
[2023-06-01] MEDS ORDERED: VANCOMYCIN PER PHARMACY 0 MG IV SCH (14:30)
[2023-06-01] MEDS: MAGNESIUM SULFATE 1GM/100ML 100 ML IV SCH ×2 (14:38→15:52)
[2023-06-01] MEDS ORDERED: VANCOMYCIN 1GM/250ML 250 ML IV ONE (14:45)
[2023-06-01] MEDS ORDERED: REMDESIVIR 200 MG in NS 210ml LOADING DOSE ADULT IV ONE (15:00)
[2023-06-01] MEDS: SODIUM BICARBONATE 50ML VIAL 75 ML in SOD CHL 0.45% 1,000 ML IV SCH ×2 (15:52→23:57)
[2023-06-01] MEDS ORDERED: ALBUMIN 25% 100 ML IV ONE (17:00)
[2023-06-01] MEDS ORDERED: BUMETANIDE 2.5mg/10ml (0.25 mg/ml) INJ IV ONE (17:00)
[2023-06-01] MEDS: DAKINS QUARTER STR 0.125% (NaHypochlorite) 473 ML TOPICAL SOL TOP SCH (22:00)
[2023-06-02] VITALS (84 sets, daily range): BP systolic 89–141; BP diastolic 14–58; PULSE 77–111; RESP 16–27; TEMP 97.3–98.8; O2SAT 92–98
[2023-06-02] MEDS: MIDAZOLAM DRIP 50 mg/50mL 50 ML IV SCH (02:05)
[2023-06-02] MEDS: PANTOPRAZOLE 40mg/50ML NS AE 50 ML IV SCH ×5 (03:33→22:15)
[2023-06-02 04:48] LABS: Basophils # (auto) 0 10 ^3/uL (0-0.2); Basophils % (auto) 0.2 % (0.0-2.0); Eosinophils # (auto) 0.2 10 ^3/uL (0-0.8); Hemoglobin 10.7 g/dL (13.5-17.5); Lymphocytes # (auto) 0.7 10 ^3/uL (0.4-5.4); Lymphocytes % (auto) 3.1 % (10.0-50.0); Mean Corpuscular Hemoglobin 27.3 pg (28.0-32.0); Mean Corpuscular Hgb Conc. 32.4 g/dL (32.0-36.0); Mean Corpuscular Volume 84.1 fL (80.0-100.0); Monocytes # (auto) 0.6 10 ^3/uL (0-1.3); Monocytes % (auto) 2.5 % (0.0-12.0); Neutrophils # (auto) 22.3 10 ^3/uL (1.6-8.6); Neutrophils % (auto) 93.2 % (37.0-80.0); Nucleated Red Blood Cells % 0.1 %; Red Blood Cells 3.92 10^6/uL (4.5-5.90); Red Cell Distribution Width 17.1 % (11.8-14.3); White Blood Cell 23.9 10^3/uL (4.4-10.8)
[2023-06-02 04:58] LABS: Alanine Aminotransferase 11 U/L (7-40); Alkaline Phosphatase 120 U/L (46-116); Calcium 7.5 mg/dL (8.7-10.4); Carbon Dioxide 14.4 mmol/L (20-30); Chloride 105 mmol/L (98-107); Glucose 108 mg/dL (74-106); Magnesium 1.9 mg/dL (1.6-2.6)
[2023-06-02 04:59] LABS: Albumin 2.7 g/dL (3.2-4.8); Anion Gap 15.6 (5-15); Aspartate Aminotransferase 30 U/L (13-40); Blood Urea Nitrogen 60 mg/dL (9-23); Sodium 135 mmol/L (136-145)
[2023-06-02 05:00] LABS: Bilirubin, Total 0.8 mg/dL (0.2-1.0)
[2023-06-02] MEDS: ACCU-CHEK COMFORT CURVE STRIP VI SCH ×4 (05:24→23:55)
[2023-06-02] MEDS: InsuLIN REG 1unit/0.01ml Soln (100units/ml) SC SCH ×4 (05:24→23:55)
[2023-06-02] MEDS: metroNIDAZOLE 500MG/100ML 100 ML IV SCH ×3 (05:25→22:14)
[2023-06-02] MEDS: MEROPENEM 500MG IVPB 50 ML IV SCH ×2 (05:25→18:25)
[2023-06-02] MEDS: fentaNYL Drip 2500mCg/250mlNS 250 ML IV SCH (05:30)
[2023-06-02] MEDS: VASOPRESSIN 20 UNITS in SODIUM CHL 0.9% 99 ML IV SCH ×2 (07:44→19:10)
[2023-06-02] MEDS: OCTREOTIDE ACETATE 500 MCG in SODIUM CHL 0.9% 99 ML IV SCH ×2 (08:48→17:30)
[2023-06-02] MEDS: DexAMETHasone SOD PHOS 10MG/1ML VIAL INJ IV SCH (08:50)
[2023-06-02 09:17] LABS: Base Excess -9.8 mmol/L (-2.0-2.0)
[2023-06-02] MEDS ORDERED: SODIUM CHL 0.9% 1000 ML BAG XX ONE (10:00)
[2023-06-02] MEDS: DAKINS QUARTER STR 0.125% (NaHypochlorite) 473 ML TOPICAL SOL TOP SCH ×2 (10:00→23:07)
[2023-06-02] MEDS: SODIUM BICARBONATE 50ML VIAL 75 ML in SOD CHL 0.45% 1,000 ML IV SCH (10:45)
[2023-06-02] MEDS: REMDESIVIR 100mg 100 MG in SODIUM CHL 0.9% 230 ML IV SCH (14:03)
[2023-06-03] VITALS (105 sets, daily range): BP systolic 93–123; BP diastolic 27–67; PULSE 68–79; RESP 13–23; TEMP 96.8–98.6; O2SAT 89–97
[2023-06-03] MEDS: fentaNYL Drip 2500mCg/250mlNS 250 ML IV SCH ×3 (01:30→23:58)
[2023-06-03] MEDS: OCTREOTIDE ACETATE 500 MCG in SODIUM CHL 0.9% 99 ML IV SCH ×3 (03:50→20:34)
[2023-06-03] MEDS: PANTOPRAZOLE 40mg/50ML NS AE 50 ML IV SCH ×5 (03:55→20:37)
[2023-06-03] MEDS: MIDAZOLAM DRIP 50 mg/50mL 50 ML IV SCH ×2 (04:05→10:28)
[2023-06-03] MEDS: metroNIDAZOLE 500MG/100ML 100 ML IV SCH ×3 (05:05→22:22)
[2023-06-03 05:14] LABS: Alanine Aminotransferase 12 U/L (7-40); Albumin 2.3 g/dL (3.2-4.8); Alkaline Phosphatase 105 U/L (46-116); Anion Gap 13.5 (5-15); Aspartate Aminotransferase 46 U/L (13-40); BUN/Creatinine Ratio 10.2 (10.0-20.0); Bilirubin, Total 0.9 mg/dL (0.2-1.0); Calcium 7.4 mg/dL (8.7-10.4); Carbon Dioxide 22.5 mmol/L (20-30); Chloride 103 mmol/L (98-107); Glucose 135 mg/dL (74-106); Potassium 3.7 mmol/L (3.5-5.1); Sodium 139 mmol/L (136-145); Total Protein 4.4 g/dL (5.7-8.2)
[2023-06-03 05:15] LABS: Blood Urea Nitrogen 47 mg/dL (9-23)
[2023-06-03] MEDS: VASOPRESSIN 20 UNITS in SODIUM CHL 0.9% 99 ML IV SCH ×2 (05:58→17:05)
[2023-06-03] MEDS: InsuLIN REG 1unit/0.01ml Soln (100units/ml) SC SCH ×3 (06:00→18:42)
[2023-06-03] MEDS: ACCU-CHEK COMFORT CURVE STRIP VI SCH ×3 (06:30→18:36)
[2023-06-03] MEDS: MEROPENEM 500MG IVPB 50 ML IV SCH ×2 (06:32→18:00)
[2023-06-03 09:00] LABS: Base Excess -2.4 mmol/L (-2.0-2.0)
[2023-06-03] MEDS: NOREPINEPHRINE 8 MG/250ML KIT 250 ML IV SCH (09:30)
[2023-06-03] MEDS ORDERED: VANCOMYCIN 500 MG in D5W 5% 100 ML IV ONE (10:00)
[2023-06-03] MEDS: DexAMETHasone SOD PHOS 10MG/1ML VIAL INJ IV SCH (10:19)
[2023-06-03] MEDS: DAKINS QUARTER STR 0.125% (NaHypochlorite) 473 ML TOPICAL SOL TOP SCH ×2 (12:09→22:27)
[2023-06-03 15:51] LABS: Basophils # (auto) 0 10 ^3/uL (0-0.2); Basophils % (auto) 0.1 % (0.0-2.0); Eosinophils # (auto) 0 10 ^3/uL (0-0.8); Eosinophils % (auto) 0.1 % (0.0-7.0); Hematocrit 30.5 % (41.0-53.0); Hemoglobin 9.8 g/dL (13.5-17.5); Lymphocytes # (auto) 0.3 10 ^3/uL (0.4-5.4); Lymphocytes % (auto) 2.1 % (10.0-50.0); Mean Corpuscular Hemoglobin 27.2 pg (28.0-32.0); Mean Corpuscular Hgb Conc. 32.2 g/dL (32.0-36.0); Mean Corpuscular Volume 84.5 fL (80.0-100.0); Monocytes # (auto) 0.6 10 ^3/uL (0-1.3); Monocytes % (auto) 3.8 % (0.0-12.0); Neutrophils # (auto) 13.8 10 ^3/uL (1.6-8.6); Neutrophils % (auto) 93.9 % (37.0-80.0); Nucleated Red Blood Cells % 0.1 %; Red Blood Cells 3.61 10^6/uL (4.5-5.90); Red Cell Distribution Width 17.1 % (11.8-14.3); White Blood Cell 14.7 10^3/uL (4.4-10.8)
[2023-06-03 16:06] LABS: Chloride 103 mmol/L (98-107); Potassium 3.8 mmol/L (3.5-5.1); Sodium 139 mmol/L (136-145)
[2023-06-03 16:07] LABS: Anion Gap 14.5 (5-15); Calcium 7.2 mg/dL (8.5-10.1); Carbon Dioxide 21.5 mmol/L (20-30)
[2023-06-03 16:12] LABS: BUN/Creatinine Ratio 13.6 (10.0-20.0); Blood Urea Nitrogen 66 mg/dL (9-23); Glucose 171 mg/dL (74-106)
[2023-06-03] MEDS: REMDESIVIR 100mg 100 MG in SODIUM CHL 0.9% 230 ML IV SCH (18:20)
[2023-06-04] VITALS (105 sets, daily range): BP systolic 72–209; BP diastolic 17–90; PULSE 63–106; RESP 15–22; TEMP 97.2–98.2; O2SAT 90–100
[2023-06-04] MEDS: ACCU-CHEK COMFORT CURVE STRIP VI SCH ×5 (00:29→18:31)
[2023-06-04] MEDS: InsuLIN REG 1unit/0.01ml Soln (100units/ml) SC SCH ×4 (00:31→18:00)
[2023-06-04] MEDS: PANTOPRAZOLE 40mg/50ML NS AE 50 ML IV SCH ×3 (02:19→12:31)
[2023-06-04] MEDS: VASOPRESSIN 20 UNITS in SODIUM CHL 0.9% 99 ML IV SCH ×2 (04:12→15:19)
[2023-06-04 04:33] LABS: Basophils # (auto) 0 10 ^3/uL (0-0.2); Basophils % (auto) 0.1 % (0.0-2.0); Eosinophils # (auto) 0 10 ^3/uL (0-0.8); Hemoglobin 9.9 g/dL (13.5-17.5); Lymphocytes # (auto) 0.4 10 ^3/uL (0.4-5.4); Lymphocytes % (auto) 3.2 % (10.0-50.0); Mean Corpuscular Hemoglobin 26.8 pg (28.0-32.0); Mean Corpuscular Hgb Conc. 31.9 g/dL (32.0-36.0); Mean Corpuscular Volume 84.2 fL (80.0-100.0); Monocytes # (auto) 0.7 10 ^3/uL (0-1.3); Monocytes % (auto) 5.3 % (0.0-12.0); Neutrophils # (auto) 12.2 10 ^3/uL (1.6-8.6); Neutrophils % (auto) 91.4 % (37.0-80.0); Nucleated Red Blood Cells % 0.2 %; Red Blood Cells 3.68 10^6/uL (4.5-5.90); Red Cell Distribution Width 17.2 % (11.8-14.3); White Blood Cell 13.3 10^3/uL (4.4-10.8)
[2023-06-04 05:19] LABS: Alanine Aminotransferase 17 U/L (7-40); Albumin 2.2 g/dL (3.2-4.8); Alkaline Phosphatase 141 U/L (46-116); Anion Gap 14.2 (5-15); Aspartate Aminotransferase 66 U/L (13-40); BUN/Creatinine Ratio 13.3 (10.0-20.0); Blood Urea Nitrogen 73 mg/dL (9-23); Calcium 7.4 mg/dL (8.7-10.4); Carbon Dioxide 19.8 mmol/L (20-30); Chloride 104 mmol/L (98-107); Glucose 183 mg/dL (74-106); Sodium 138 mmol/L (136-145)
[2023-06-04 05:20] LABS: Bilirubin, Total 1.1 mg/dL (0.2-1.0); Total Protein 4.3 g/dL (5.7-8.2)
[2023-06-04] MEDS: metroNIDAZOLE 500MG/100ML 100 ML IV SCH ×3 (05:37→21:58)
[2023-06-04] MEDS: MEROPENEM 500MG IVPB 50 ML IV SCH (06:38)
[2023-06-04] MEDS ORDERED: OCTREOTIDE ACETATE 500 MCG in D5W 5% 99 ML IV SCH (06:45)
[2023-06-04] MEDS ORDERED: SODIUM CHL 0.9% 1000 ML BAG XX ONE (07:00)
[2023-06-04] MEDS: NOREPINEPHRINE 8 MG/250ML KIT 250 ML IV SCH ×2 (09:30→10:00)
[2023-06-04] MEDS: DAKINS QUARTER STR 0.125% (NaHypochlorite) 473 ML TOPICAL SOL TOP SCH ×2 (12:31→21:59)
[2023-06-04] MEDS: DexAMETHasone SOD PHOS 10MG/1ML VIAL INJ IV SCH (12:31)
[2023-06-04] MEDS ORDERED: VANCOMYCIN 500MG RECTAL ENEMA IN 100ML/NS PR ONE (14:00)
[2023-06-04] MEDS ORDERED: VANCOMYCIN 500MG RECTAL ENEMA IN 100ML/NS PR SCH (18:00)
[2023-06-04] MEDS: VANCOMYCIN HCL 125MG/5ML ORAL SOL GT SCH ×2 (18:32→21:58)
[2023-06-04] MEDS: REMDESIVIR 100mg 100 MG in SODIUM CHL 0.9% 230 ML IV SCH (18:32)
[2023-06-04] MEDS ORDERED: EPOETIN ALFA-EPBX 4,000 UNIT/ML VIAL SC ONE (21:00)
[2023-06-05] VITALS (110 sets, daily range): BP systolic 57–189; BP diastolic 13–71; PULSE 64–81; RESP 13–21; TEMP 96.4–97.7; O2SAT 93–100
[2023-06-05] MEDS: InsuLIN REG 1unit/0.01ml Soln (100units/ml) SC SCH ×5 (00:41→23:42)
[2023-06-05] MEDS: MIDAZOLAM DRIP 50 mg/50mL 50 ML IV SCH (01:30)
[2023-06-05] MEDS: fentaNYL Drip 2500mCg/250mlNS 250 ML IV SCH (01:30)
[2023-06-05] MEDS: VASOPRESSIN 20 UNITS in SODIUM CHL 0.9% 99 ML IV SCH ×3 (02:26→23:43)
[2023-06-05 04:28] LABS: Basophils # (auto) 0 10 ^3/uL (0-0.2); Basophils % (auto) 0.1 % (0.0-2.0); Eosinophils # (auto) 0 10 ^3/uL (0-0.8); Hemoglobin 10.5 g/dL (13.5-17.5); Mean Corpuscular Hemoglobin 27.6 pg (28.0-32.0); Monocytes # (auto) 0.7 10 ^3/uL (0-1.3); White Blood Cell 13.3 10^3/uL (4.4-10.8)
[2023-06-05 04:32] LABS: Hematocrit 31.9 % (41.0-53.0); Lymphocytes # (auto) 0.7 10 ^3/uL (0.4-5.4); Lymphocytes % (auto) 5.1 % (10.0-50.0); Mean Corpuscular Hgb Conc. 32.8 g/dL (32.0-36.0); Mean Corpuscular Volume 84.2 fL (80.0-100.0); Monocytes % (auto) 5.3 % (0.0-12.0); Neutrophils # (auto) 11.9 10 ^3/uL (1.6-8.6); Neutrophils % (auto) 89.5 % (37.0-80.0); Nucleated Red Blood Cells % 0.3 %; Red Blood Cells 3.79 10^6/uL (4.5-5.90); Red Cell Distribution Width 17.2 % (11.8-14.3)
[2023-06-05 04:46] LABS: Alanine Aminotransferase 22 U/L (7-40); Albumin 2.3 g/dL (3.2-4.8); Alkaline Phosphatase 217 U/L (46-116); Aspartate Aminotransferase 80 U/L (13-40); BUN/Creatinine Ratio 13.9 (10.0-20.0); Bilirubin, Total 1.4 mg/dL (0.2-1.0); Blood Urea Nitrogen 74 mg/dL (9-23); Calcium 7.7 mg/dL (8.7-10.4); Chloride 104 mmol/L (98-107); Glucose 182 mg/dL (74-106); Phosphorus 10.6 mg/dL (2.4-5.1); Potassium 4.4 mmol/L (3.5-5.1); Sodium 138 mmol/L (136-145); Total Protein 4.5 g/dL (5.7-8.2)
[2023-06-05] MEDS: VANCOMYCIN HCL 125MG/5ML ORAL SOL GT SCH ×4 (05:48→21:19)
[2023-06-05] MEDS: metroNIDAZOLE 500MG/100ML 100 ML IV SCH ×3 (05:48→21:19)
[2023-06-05] MEDS: ACCU-CHEK COMFORT CURVE STRIP VI SCH ×4 (05:48→23:42)
[2023-06-05 07:25] LABS: Base Excess -3.8 mmol/L (-2.0-2.0)
[2023-06-05] MEDS: FAMOTIDINE (10MG/ML) 2ML VL IV SCH (08:51)
[2023-06-05] MEDS: DAKINS QUARTER STR 0.125% (NaHypochlorite) 473 ML TOPICAL SOL TOP SCH ×2 (08:52→21:19)
[2023-06-05] MEDS ORDERED: FAMOTIDINE INJECTION 40 MG in SODIUM CHL 0.9% 100 ML IV SCH (10:00)
[2023-06-05] MEDS: NOREPINEPHRINE 8 MG/250ML KIT 250 ML IV SCH (12:00)
[2023-06-05] MEDS: REMDESIVIR 100mg 100 MG in SODIUM CHL 0.9% 230 ML IV SCH (16:07)
[2023-06-06] VITALS (113 sets, daily range): BP systolic 94–183; BP diastolic 15–76; PULSE 67–99; RESP 12–22; TEMP 96.6–99; O2SAT 83–100
[2023-06-06] MEDS: fentaNYL Drip 2500mCg/250mlNS 250 ML IV SCH (01:30)
[2023-06-06] MEDS: MIDAZOLAM DRIP 50 mg/50mL 50 ML IV SCH (01:30)
[2023-06-06 04:21] LABS: Basophils # (auto) 0 10 ^3/uL (0-0.2); Eosinophils # (auto) 0 10 ^3/uL (0-0.8); Hematocrit 29.5 % (41.0-53.0); Hemoglobin 9.8 g/dL (13.5-17.5); Lymphocytes # (auto) 0.5 10 ^3/uL (0.4-5.4); Lymphocytes % (auto) 4.5 % (10.0-50.0); Mean Corpuscular Hemoglobin 28.1 pg (28.0-32.0); Mean Corpuscular Hgb Conc. 33.2 g/dL (32.0-36.0); Mean Corpuscular Volume 84.5 fL (80.0-100.0); Monocytes # (auto) 0.6 10 ^3/uL (0-1.3); Monocytes % (auto) 5.3 % (0.0-12.0); Neutrophils # (auto) 10.2 10 ^3/uL (1.6-8.6); Neutrophils % (auto) 90.2 % (37.0-80.0); Nucleated Red Blood Cells % 0.3 %; Red Blood Cells 3.49 10^6/uL (4.5-5.90); Red Cell Distribution Width 17.3 % (11.8-14.3); White Blood Cell 11.3 10^3/uL (4.4-10.8)
[2023-06-06 04:27] LABS: Alanine Aminotransferase 20 U/L (7-40); Albumin 2.1 g/dL (3.2-4.8); Alkaline Phosphatase 217 U/L (46-116); Anion Gap 14.6 (5-15); Aspartate Aminotransferase 71 U/L (13-40); Bilirubin, Total 1.3 mg/dL (0.2-1.0); Calcium 7.4 mg/dL (8.7-10.4); Carbon Dioxide 19.4 mmol/L (20-30); Chloride 104 mmol/L (98-107); Glucose 243 mg/dL (74-106); Potassium 4.6 mmol/L (3.5-5.1); Sodium 138 mmol/L (136-145)
[2023-06-06 04:28] LABS: Total Protein 4.2 g/dL (5.7-8.2)
[2023-06-06 04:37] LABS: Blood Urea Nitrogen 92 mg/dL (9-23)
[2023-06-06 04:40] LABS: INR 1.52 (0.9-1.15); Partial Thromboplastin Time 48.2 SEC (24.5-34.5); Prothrombin Time 15.5 sec (9.3-11.8)
[2023-06-06 05:12] LABS: Platelet Estimate Decreased
[2023-06-06] MEDS: metroNIDAZOLE 500MG/100ML 100 ML IV SCH ×3 (05:34→21:03)
[2023-06-06] MEDS: VANCOMYCIN HCL 125MG/5ML ORAL SOL GT SCH ×4 (05:34→21:04)
[2023-06-06] MEDS: ACCU-CHEK COMFORT CURVE STRIP VI SCH ×3 (05:47→17:32)
[2023-06-06] MEDS: InsuLIN REG 1unit/0.01ml Soln (100units/ml) SC SCH ×3 (05:48→17:43)
[2023-06-06] MEDS: NOREPINEPHRINE 8 MG/250ML KIT 250 ML IV SCH (06:10)
[2023-06-06] MEDS ORDERED: SODIUM CHL 0.9% 1000 ML BAG XX ONE (07:00)
[2023-06-06] MEDS ORDERED: ALBUMIN 25% 100 ML IV ONE ×2 (07:20→07:30)
[2023-06-06] MEDS: DAKINS QUARTER STR 0.125% (NaHypochlorite) 473 ML TOPICAL SOL TOP SCH ×2 (10:12→21:04)
[2023-06-06] MEDS: FAMOTIDINE (10MG/ML) 2ML VL IV SCH (10:12)
[2023-06-06] MEDS: VASOPRESSIN 20 UNITS in SODIUM CHL 0.9% 99 ML IV SCH ×2 (11:47→21:04)
[2023-06-07] VITALS (46 sets, daily range): BP systolic 116–168; BP diastolic 23–62; PULSE 75–91; RESP 15–18; TEMP 97.9–98.8; O2SAT 92–98
[2023-06-07] MEDS: MIDAZOLAM DRIP 50 mg/50mL 50 ML IV SCH (00:01)
[2023-06-07] MEDS: fentaNYL Drip 2500mCg/250mlNS 250 ML IV SCH (00:01)
[2023-06-07] MEDS: InsuLIN REG 1unit/0.01ml Soln (100units/ml) SC SCH ×5 (00:01→23:52)
[2023-06-07 04:13] LABS: Basophils # (auto) 0 10 ^3/uL (0-0.2); Basophils % (auto) 0.1 % (0.0-2.0); Eosinophils # (auto) 0 10 ^3/uL (0-0.8); Hemoglobin 8.8 g/dL (13.5-17.5); Lymphocytes # (auto) 0.5 10 ^3/uL (0.4-5.4); Monocytes # (auto) 0.3 10 ^3/uL (0-1.3); Neutrophils % (auto) 90.3 % (37.0-80.0)
[2023-06-07 04:18] LABS: Hematocrit 26.3 % (41.0-53.0); Lymphocytes % (auto) 5.7 % (10.0-50.0); Mean Corpuscular Hemoglobin 27.9 pg (28.0-32.0); Mean Corpuscular Hgb Conc. 33.3 g/dL (32.0-36.0); Mean Corpuscular Volume 83.9 fL (80.0-100.0); Monocytes % (auto) 3.9 % (0.0-12.0); Neutrophils # (auto) 7.8 10 ^3/uL (1.6-8.6); Nucleated Red Blood Cells % 0.3 %; Red Blood Cells 3.14 10^6/uL (4.5-5.90); Red Cell Distribution Width 17.4 % (11.8-14.3); White Blood Cell 8.6 10^3/uL (4.4-10.8)
[2023-06-07 04:22] LABS: Chloride 104 mmol/L (98-107); Potassium 4.1 mmol/L (3.5-5.1); Sodium 139 mmol/L (136-145)
[2023-06-07 04:23] LABS: Anion Gap 13 (5-15); Carbon Dioxide 22 mmol/L (20-30)
[2023-06-07 04:24] LABS: Calcium 7.1 mg/dL (8.7-10.4)
[2023-06-07 04:28] LABS: BUN/Creatinine Ratio 15.6 (10.0-20.0); Glucose 260 mg/dL (74-106)
[2023-06-07 04:49] LABS: Blood Urea Nitrogen 84 mg/dL (9-23)
[2023-06-07 04:50] LABS: Anisocytosis Slight; Platelet Estimate Decreased
[2023-06-07 04:51] LABS: Large Platelets FEW; Target Cell FEW
[2023-06-07] MEDS: metroNIDAZOLE 500MG/100ML 100 ML IV SCH ×3 (05:28→22:01)
[2023-06-07] MEDS: VANCOMYCIN HCL 125MG/5ML ORAL SOL GT SCH ×4 (05:28→22:01)
[2023-06-07] MEDS: ACCU-CHEK COMFORT CURVE STRIP VI SCH ×4 (05:28→17:18)
[2023-06-07] MEDS: VASOPRESSIN 20 UNITS in SODIUM CHL 0.9% 99 ML IV SCH ×2 (07:55→21:08)
[2023-06-07] MEDS: FAMOTIDINE (10MG/ML) 2ML VL IV SCH (07:55)
[2023-06-07] MEDS: NOREPINEPHRINE 8 MG/250ML KIT 250 ML IV SCH (09:48)
[2023-06-07 10:15] LABS: Base Excess -2.9 mmol/L (-2.0-2.0)
[2023-06-07] MEDS: DAKINS QUARTER STR 0.125% (NaHypochlorite) 473 ML TOPICAL SOL TOP SCH ×2 (11:50→22:01)
[2023-06-07 14:55] LABS: Hepatitis B Surface Antibody Positive (Negative)
[2023-06-07 15:07] LABS: Hepatitis B Surface Antigen Negative (Negative)
[2023-06-07 15:30] LABS: Hepatitis B Core IgM Negative
[2023-06-07] MEDS: Nepro With Carb Steady 1 Liter Bottle GT SCH (17:41)
[2023-06-08] VITALS (88 sets, daily range): BP systolic 88–176; BP diastolic 19–67; PULSE 84–95; RESP 15–24; TEMP 97.2–99.1; O2SAT 91–100
[2023-06-08] MEDS: MIDAZOLAM DRIP 50 mg/50mL 50 ML IV SCH (01:30)
[2023-06-08] MEDS: fentaNYL Drip 2500mCg/250mlNS 250 ML IV SCH (01:30)
[2023-06-08 05:08] LABS: Alanine Aminotransferase 19 U/L (7-40); Albumin 2.3 g/dL (3.2-4.8); Alkaline Phosphatase 316 U/L (46-116); Anion Gap 13 (5-15); Aspartate Aminotransferase 53 U/L (13-40); BUN/Creatinine Ratio 14.1 (10.0-20.0); Bilirubin, Total 1.7 mg/dL (0.2-1.0); Calcium 6.7 mg/dL (8.7-10.4); Carbon Dioxide 21 mmol/L (20-30); Chloride 105 mmol/L (98-107); Sodium 139 mmol/L (136-145); Total Protein 4.3 g/dL (5.7-8.2)
[2023-06-08] MEDS: ACCU-CHEK COMFORT CURVE STRIP VI SCH ×3 (05:18→18:23)
[2023-06-08] MEDS: VANCOMYCIN HCL 125MG/5ML ORAL SOL GT SCH ×3 (05:19→21:18)
[2023-06-08] MEDS: metroNIDAZOLE 500MG/100ML 100 ML IV SCH ×3 (05:19→21:21)
[2023-06-08] MEDS: InsuLIN REG 1unit/0.01ml Soln (100units/ml) SC SCH ×3 (05:33→18:00)
[2023-06-08 05:40] LABS: Glucose 156 mg/dL (74-106)
[2023-06-08 05:41] LABS: Blood Urea Nitrogen 87 mg/dL (9-23)
[2023-06-08 06:05] LABS: Hemoglobin 9.4 g/dL (13.5-17.5)
[2023-06-08 06:07] LABS: Hematocrit 28.1 % (41.0-53.0)
[2023-06-08] MEDS ORDERED: SODIUM CHL 0.9% 1000 ML BAG XX ONE (07:00)
[2023-06-08 07:34] LABS: Base Excess -2.7 mmol/L (-2.0-2.0)
[2023-06-08] MEDS: VASOPRESSIN 20 UNITS in SODIUM CHL 0.9% 99 ML IV SCH ×2 (08:15→19:22)
[2023-06-08 09:25] LABS: Basophils # (auto) 0 10 ^3/uL (0-0.2); Eosinophils # (auto) 0 10 ^3/uL (0-0.8); Hemoglobin 9.3 g/dL (13.5-17.5); Monocytes # (auto) 0.3 10 ^3/uL (0-1.3)
[2023-06-08 09:27] LABS: Basophils % (auto) 0.2 % (0.0-2.0); Eosinophils % (auto) 0.4 % (0.0-7.0); Lymphocytes # (auto) 0.4 10 ^3/uL (0.4-5.4); Lymphocytes % (auto) 3.9 % (10.0-50.0); Mean Corpuscular Hgb Conc. 33.2 g/dL (32.0-36.0); Mean Corpuscular Volume 84.2 fL (80.0-100.0); Monocytes % (auto) 2.9 % (0.0-12.0); Neutrophils # (auto) 9.1 10 ^3/uL (1.6-8.6); Neutrophils % (auto) 92.6 % (37.0-80.0); Red Blood Cells 3.32 10^6/uL (4.5-5.90); Red Cell Distribution Width 17.1 % (11.8-14.3); White Blood Cell 9.9 10^3/uL (4.4-10.8)
[2023-06-08] MEDS: DAKINS QUARTER STR 0.125% (NaHypochlorite) 473 ML TOPICAL SOL TOP SCH ×2 (10:00→21:21)
[2023-06-08] MEDS: FAMOTIDINE (10MG/ML) 2ML VL IV SCH (10:46)
[2023-06-08] MEDS: NOREPINEPHRINE 8 MG/250ML KIT 250 ML IV SCH (12:00)
[2023-06-08] MEDS ORDERED: EPOETIN ALFA-EPBX 10,000 UNIT/1ML VIAL SC ONE (21:00)
[2023-06-09] VITALS (107 sets, daily range): BP systolic 88–139; BP diastolic 14–88; PULSE 78–97; RESP 15–38; TEMP 81.5–97.9; O2SAT 94–100
[2023-06-09] MEDS: ACCU-CHEK COMFORT CURVE STRIP VI SCH ×5 (00:10→23:39)
[2023-06-09] MEDS: InsuLIN REG 1unit/0.01ml Soln (100units/ml) SC SCH ×5 (00:13→23:44)
[2023-06-09] MEDS: MIDAZOLAM DRIP 50 mg/50mL 50 ML IV SCH (01:30)
[2023-06-09] MEDS: fentaNYL Drip 2500mCg/250mlNS 250 ML IV SCH (01:30)
[2023-06-09 04:45] LABS: Basophils # (auto) 0 10 ^3/uL (0-0.2); Eosinophils # (auto) 0.1 10 ^3/uL (0-0.8); Eosinophils % (auto) 0.8 % (0.0-7.0); Hematocrit 25.4 % (41.0-53.0); Mean Corpuscular Hemoglobin 27.9 pg (28.0-32.0); Mean Corpuscular Hgb Conc. 33.7 g/dL (32.0-36.0); Mean Corpuscular Volume 82.8 fL (80.0-100.0); Red Blood Cells 3.06 10^6/uL (4.5-5.90); White Blood Cell 7.5 10^3/uL (4.4-10.8)
[2023-06-09 04:47] LABS: Basophils % (auto) 0.4 % (0.0-2.0); Hemoglobin 8.5 g/dL (13.5-17.5); Lymphocytes # (auto) 0.4 10 ^3/uL (0.4-5.4); Monocytes # (auto) 0.3 10 ^3/uL (0-1.3); Monocytes % (auto) 4.2 % (0.0-12.0); Neutrophils # (auto) 6.7 10 ^3/uL (1.6-8.6); Neutrophils % (auto) 89.6 % (37.0-80.0); Nucleated Red Blood Cells % 0.2 %; Red Cell Distribution Width 17.6 % (11.8-14.3)
[2023-06-09 04:58] LABS: Chloride 106 mmol/L (98-107); Sodium 142 mmol/L (136-145)
[2023-06-09 04:59] LABS: Anion Gap 13 (5-15); Carbon Dioxide 23 mmol/L (20-30)
[2023-06-09 05:04] LABS: BUN/Creatinine Ratio 12.4 (10.0-20.0); Glucose 173 mg/dL (74-106)
[2023-06-09 05:15] LABS: Blood Urea Nitrogen 61 mg/dL (9-23)
[2023-06-09] MEDS: metroNIDAZOLE 500MG/100ML 100 ML IV SCH ×3 (06:13→22:09)
[2023-06-09] MEDS: VANCOMYCIN HCL 125MG/5ML ORAL SOL GT SCH ×4 (06:13→22:09)
[2023-06-09] MEDS: VASOPRESSIN 20 UNITS in SODIUM CHL 0.9% 99 ML IV SCH ×2 (06:29→17:36)
[2023-06-09 07:29] LABS: Base Excess -2.5 mmol/L (-2.0-2.0)
[2023-06-09] MEDS: FAMOTIDINE (10MG/ML) 2ML VL IV SCH (11:44)
[2023-06-09] MEDS: DAKINS QUARTER STR 0.125% (NaHypochlorite) 473 ML TOPICAL SOL TOP SCH ×2 (11:45→22:09)
[2023-06-09] MEDS: NOREPINEPHRINE 8 MG/250ML KIT 250 ML IV SCH (12:00)
[2023-06-09] MEDS: FUROSEMIDE 40 MG/4 ML VIAL IV SCH (16:00)
[2023-06-09] MEDS: TACROLIMUS 1 MG CAP PO SCH (21:38)
[2023-06-10] VITALS (105 sets, daily range): BP systolic 97–147; BP diastolic 15–56; PULSE 83–103; RESP 11–31; TEMP 96.3–99.1; O2SAT 87–100
[2023-06-10] MEDS: fentaNYL Drip 2500mCg/250mlNS 250 ML IV SCH (01:30)
[2023-06-10] MEDS: MIDAZOLAM DRIP 50 mg/50mL 50 ML IV SCH (01:30)
[2023-06-10 03:58] LABS: Anion Gap 13 (5-15); Carbon Dioxide 24 mmol/L (20-30); Chloride 106 mmol/L (98-107); Potassium 3.7 mmol/L (3.5-5.1); Sodium 143 mmol/L (136-145)
[2023-06-10 04:00] LABS: Calcium 7.3 mg/dL (8.7-10.4)
[2023-06-10 04:04] LABS: BUN/Creatinine Ratio 12.9 (10.0-20.0); Glucose 166 mg/dL (74-106)
[2023-06-10 04:05] LABS: Basophils # (auto) 0 10 ^3/uL (0-0.2); Basophils % (auto) 0.3 % (0.0-2.0); Blood Urea Nitrogen 72 mg/dL (9-23); Eosinophils # (auto) 0.1 10 ^3/uL (0-0.8); Eosinophils % (auto) 1.2 % (0.0-7.0); Hematocrit 27.1 % (41.0-53.0); Lymphocytes # (auto) 0.4 10 ^3/uL (0.4-5.4); Lymphocytes % (auto) 5.2 % (10.0-50.0); Mean Corpuscular Hemoglobin 27.4 pg (28.0-32.0); Monocytes # (auto) 0.4 10 ^3/uL (0-1.3); Monocytes % (auto) 5.4 % (0.0-12.0); Neutrophils # (auto) 7.2 10 ^3/uL (1.6-8.6); Neutrophils % (auto) 87.9 % (37.0-80.0); Nucleated Red Blood Cells % 0.1 %; Red Blood Cells 3.27 10^6/uL (4.5-5.90); Red Cell Distribution Width 17.7 % (11.8-14.3); White Blood Cell 8.2 10^3/uL (4.4-10.8)
[2023-06-10] MEDS: VASOPRESSIN 20 UNITS in SODIUM CHL 0.9% 99 ML IV SCH ×2 (04:43→15:50)
[2023-06-10] MEDS: ACCU-CHEK COMFORT CURVE STRIP VI SCH ×4 (06:25→23:55)
[2023-06-10] MEDS: metroNIDAZOLE 500MG/100ML 100 ML IV SCH ×3 (06:25→22:22)
[2023-06-10] MEDS: InsuLIN REG 1unit/0.01ml Soln (100units/ml) SC SCH ×4 (06:26→23:57)
[2023-06-10] MEDS: VANCOMYCIN HCL 125MG/5ML ORAL SOL GT SCH ×4 (06:26→22:22)
[2023-06-10 07:37] LABS: Base Excess -1.9 mmol/L (-2.0-2.0)
[2023-06-10] MEDS: DAKINS QUARTER STR 0.125% (NaHypochlorite) 473 ML TOPICAL SOL TOP SCH ×2 (11:22→22:22)
[2023-06-10] MEDS: FAMOTIDINE (10MG/ML) 2ML VL IV SCH (11:22)
[2023-06-10] MEDS: FUROSEMIDE 40 MG/4 ML VIAL IV SCH ×2 (11:23→17:41)
[2023-06-10] MEDS: NOREPINEPHRINE 8 MG/250ML KIT 250 ML IV SCH (12:00)
[2023-06-10] MEDS: TACROLIMUS 1 MG CAP PO SCH ×2 (13:23→22:21)
[2023-06-11] VITALS (64 sets, daily range): BP systolic 97–140; BP diastolic 18–73; PULSE 88–103; RESP 15–24; TEMP 97.3–99.5; O2SAT 95–100
[2023-06-11] MEDS: fentaNYL Drip 2500mCg/250mlNS 250 ML IV SCH (01:30)
[2023-06-11] MEDS: MIDAZOLAM DRIP 50 mg/50mL 50 ML IV SCH (01:30)
[2023-06-11] MEDS: VASOPRESSIN 20 UNITS in SODIUM CHL 0.9% 99 ML IV SCH ×2 (02:57→13:57)
[2023-06-11 04:15] LABS: Basophils # (auto) 0.1 10 ^3/uL (0-0.2); Basophils % (auto) 1.6 % (0.0-2.0); Eosinophils # (auto) 0.1 10 ^3/uL (0-0.8); Eosinophils % (auto) 0.8 % (0.0-7.0); Hematocrit 34.2 % (41.0-53.0); Hemoglobin 11.1 g/dL (13.5-17.5); Lymphocytes # (auto) 0.3 10 ^3/uL (0.4-5.4); Mean Corpuscular Hemoglobin 27.2 pg (28.0-32.0); Mean Corpuscular Hgb Conc. 32.5 g/dL (32.0-36.0); Mean Corpuscular Volume 83.7 fL (80.0-100.0); Monocytes # (auto) 0.4 10 ^3/uL (0-1.3); Monocytes % (auto) 5.5 % (0.0-12.0); Neutrophils # (auto) 5.6 10 ^3/uL (1.6-8.6); Neutrophils % (auto) 87.1 % (37.0-80.0); Nucleated Red Blood Cells % 0.1 %; Red Blood Cells 4.09 10^6/uL (4.5-5.90); Red Cell Distribution Width 18.1 % (11.8-14.3); White Blood Cell 6.4 10^3/uL (4.4-10.8)
[2023-06-11 04:22] LABS: Anion Gap 10 (5-15); Carbon Dioxide 25 mmol/L (20-30); Chloride 106 mmol/L (98-107); Potassium 3.6 mmol/L (3.5-5.1); Sodium 141 mmol/L (136-145)
[2023-06-11 04:23] LABS: Calcium 7.3 mg/dL (8.7-10.4)
[2023-06-11 04:28] LABS: BUN/Creatinine Ratio 12.6 (10.0-20.0); Blood Urea Nitrogen 75 mg/dL (9-23); Glucose 157 mg/dL (74-106)
[2023-06-11] MEDS: metroNIDAZOLE 500MG/100ML 100 ML IV SCH ×3 (05:31→22:11)
[2023-06-11] MEDS: FUROSEMIDE 40 MG/4 ML VIAL IV SCH ×2 (05:32→17:28)
[2023-06-11] MEDS: VANCOMYCIN HCL 125MG/5ML ORAL SOL GT SCH ×4 (05:32→22:11)
[2023-06-11] MEDS: ACCU-CHEK COMFORT CURVE STRIP VI SCH ×3 (05:32→17:31)
[2023-06-11] MEDS: InsuLIN REG 1unit/0.01ml Soln (100units/ml) SC SCH ×3 (05:48→17:57)
[2023-06-11] MEDS ORDERED: SODIUM CHL 0.9% 1000 ML BAG XX ONE (07:00)
[2023-06-11 07:14] LABS: Base Excess -1.9 mmol/L (-2.0-2.0)
[2023-06-11] MEDS: ALBUMIN 25% 100 ML IV PRN ×2 (08:54→10:05)
[2023-06-11] MEDS: TACROLIMUS 1 MG CAP PO SCH ×2 (11:42→22:11)
[2023-06-11] MEDS: NOREPINEPHRINE 8 MG/250ML KIT 250 ML IV SCH (12:00)
[2023-06-11] MEDS: FAMOTIDINE (10MG/ML) 2ML VL IV SCH (13:15)
[2023-06-11] MEDS ORDERED: IOHEXOL 350 MG/ML 100ML IJ ONE (15:07)
[2023-06-11] MEDS ORDERED: LIDOCAINE 2%HCL (LOCAL ANESTH.) INJ 20ML MDV ONE ×2 (15:07→15:08)
[2023-06-11] MEDS ORDERED: HEPARIN SODIUM (PORCINE) 5000 UNITS/ML 1ML VIAL ONE (15:54)
[2023-06-11] MEDS: DAKINS QUARTER STR 0.125% (NaHypochlorite) 473 ML TOPICAL SOL TOP SCH ×2 (17:31→22:11)
[2023-06-11] MEDS: Nepro With Carb Steady 1 Liter Bottle GT SCH (17:35)
[2023-06-11] MEDS ORDERED: EPOETIN ALFA-EPBX 4,000 UNIT/ML VIAL SC ONE (21:00)
[2023-06-12] VITALS (42 sets, daily range): BP systolic 116–147; BP diastolic 59–86; PULSE 87–103; RESP 13–28; TEMP 97.3–98.8; O2SAT 95–100
[2023-06-12] MEDS: ACCU-CHEK COMFORT CURVE STRIP VI SCH ×4 (00:15→17:35)
[2023-06-12] MEDS: InsuLIN REG 1unit/0.01ml Soln (100units/ml) SC SCH ×4 (00:17→17:47)
[2023-06-12] MEDS: VASOPRESSIN 20 UNITS in SODIUM CHL 0.9% 99 ML IV SCH ×3 (01:11→23:25)
[2023-06-12] MEDS: MIDAZOLAM DRIP 50 mg/50mL 50 ML IV SCH (01:30)
[2023-06-12] MEDS: fentaNYL Drip 2500mCg/250mlNS 250 ML IV SCH (01:30)
[2023-06-12 04:20] LABS: Basophils # (auto) 0.1 10 ^3/uL (0-0.2); Basophils % (auto) 1.3 % (0.0-2.0); Eosinophils # (auto) 0.1 10 ^3/uL (0-0.8); Eosinophils % (auto) 1.5 % (0.0-7.0); Hematocrit 22.3 % (41.0-53.0); Hemoglobin 7.3 g/dL (13.5-17.5); Lymphocytes # (auto) 0.5 10 ^3/uL (0.4-5.4); Lymphocytes % (auto) 7.4 % (10.0-50.0); Mean Corpuscular Hemoglobin 27.5 pg (28.0-32.0); Mean Corpuscular Hgb Conc. 32.9 g/dL (32.0-36.0); Mean Corpuscular Volume 83.8 fL (80.0-100.0); Monocytes # (auto) 0.5 10 ^3/uL (0-1.3); Monocytes % (auto) 8.9 % (0.0-12.0); Neutrophils % (auto) 80.9 % (37.0-80.0); Red Blood Cells 2.66 10^6/uL (4.5-5.90); Red Cell Distribution Width 18.3 % (11.8-14.3); White Blood Cell 6.2 10^3/uL (4.4-10.8)
[2023-06-12 04:34] LABS: Alanine Aminotransferase 10 U/L (7-40); Albumin 2.8 g/dL (3.2-4.8); Alkaline Phosphatase 187 U/L (46-116); Anion Gap 9 (5-15); Aspartate Aminotransferase 40 U/L (13-40); BUN/Creatinine Ratio 12.2 (10.0-20.0); Bilirubin, Total 7.1 mg/dL (0.2-1.0); Calcium 7.8 mg/dL (8.7-10.4); Carbon Dioxide 27 mmol/L (20-30); Chloride 105 mmol/L (98-107); Glucose 147 mg/dL (74-106); Magnesium 2.1 mg/dL (1.6-2.6); Potassium 3.4 mmol/L (3.5-5.1); Sodium 141 mmol/L (136-145); Total Protein 5.1 g/dL (5.7-8.2)
[2023-06-12 04:42] LABS: Blood Urea Nitrogen 59 mg/dL (9-23)
[2023-06-12] MEDS: Nepro With Carb Steady 1 Liter Bottle GT SCH (05:48)
[2023-06-12] MEDS: metroNIDAZOLE 500MG/100ML 100 ML IV SCH ×3 (05:48→21:50)
[2023-06-12] MEDS: VANCOMYCIN HCL 125MG/5ML ORAL SOL GT SCH ×4 (05:49→21:50)
[2023-06-12] MEDS: FUROSEMIDE 40 MG/4 ML VIAL IV SCH ×2 (05:49→17:33)
[2023-06-12 07:07] LABS: Base Excess 0.9 mmol/L (-2.0-2.0)
[2023-06-12] MEDS: FAMOTIDINE (10MG/ML) 2ML VL IV SCH (09:22)
[2023-06-12] MEDS: TACROLIMUS 1 MG CAP PO SCH ×2 (09:22→21:50)
[2023-06-12 11:24] LABS: Hematocrit 24.3 % (41.0-53.0)
[2023-06-12] MEDS: NOREPINEPHRINE 8 MG/250ML KIT 250 ML IV SCH (11:50)
[2023-06-12] MEDS: DAKINS QUARTER STR 0.125% (NaHypochlorite) 473 ML TOPICAL SOL TOP SCH ×2 (16:33→21:50)
[2023-06-12] MEDS ORDERED: POTASSIUM CHL 20MEQ/100ML 100 ML IV ONE (17:45)
[2023-06-13] VITALS (52 sets, daily range): BP systolic 85–149; BP diastolic 55–82; PULSE 95–113; RESP 12–35; TEMP 96.3–98.6; O2SAT 96–100
[2023-06-13] MEDS: ACCU-CHEK COMFORT CURVE STRIP VI SCH ×4 (00:33→17:27)
[2023-06-13] MEDS: InsuLIN REG 1unit/0.01ml Soln (100units/ml) SC SCH ×4 (00:40→17:53)
[2023-06-13] MEDS: MIDAZOLAM DRIP 50 mg/50mL 50 ML IV SCH (01:30)
[2023-06-13] MEDS: fentaNYL Drip 2500mCg/250mlNS 250 ML IV SCH (01:30)
[2023-06-13 04:14] LABS: Basophils # (auto) 0.1 10 ^3/uL (0-0.2); Hemoglobin 7.8 g/dL (13.5-17.5); Neutrophils # (auto) 6.9 10 ^3/uL (1.6-8.6); Red Cell Distribution Width 18.3 % (11.8-14.3)
[2023-06-13 04:17] LABS: Basophils % (auto) 1.2 % (0.0-2.0); Eosinophils # (auto) 0 10 ^3/uL (0-0.8); Eosinophils % (auto) 0.4 % (0.0-7.0); Hematocrit 23.3 % (41.0-53.0); Lymphocytes # (auto) 0.3 10 ^3/uL (0.4-5.4); Lymphocytes % (auto) 4.3 % (10.0-50.0); Mean Corpuscular Hgb Conc. 33.7 g/dL (32.0-36.0); Mean Corpuscular Volume 82.9 fL (80.0-100.0); Monocytes # (auto) 0.6 10 ^3/uL (0-1.3); Monocytes % (auto) 7.9 % (0.0-12.0); Neutrophils % (auto) 86.2 % (37.0-80.0); Red Blood Cells 2.81 10^6/uL (4.5-5.90)
[2023-06-13 04:23] LABS: Chloride 103 mmol/L (98-107); Potassium 3.5 mmol/L (3.5-5.1); Sodium 140 mmol/L (136-145)
[2023-06-13 04:24] LABS: Anion Gap 9 (5-15); Calcium 7.8 mg/dL (8.7-10.4); Carbon Dioxide 28 mmol/L (20-30)
[2023-06-13 04:29] LABS: BUN/Creatinine Ratio 12.7 (10.0-20.0); Blood Urea Nitrogen 66 mg/dL (9-23); Glucose 179 mg/dL (74-106)
[2023-06-13] MEDS: FUROSEMIDE 40 MG/4 ML VIAL IV SCH ×2 (05:50→17:27)
[2023-06-13] MEDS: metroNIDAZOLE 500MG/100ML 100 ML IV SCH ×3 (05:50→21:31)
[2023-06-13] MEDS: VANCOMYCIN HCL 125MG/5ML ORAL SOL GT SCH ×4 (05:51→21:32)
[2023-06-13 07:46] LABS: Base Excess 0.8 mmol/L (-2.0-2.0)
[2023-06-13 10:11] LABS: Base Excess 2.6 mmol/L (-2.0-2.0)
[2023-06-13] MEDS: VASOPRESSIN 20 UNITS in SODIUM CHL 0.9% 99 ML IV SCH ×2 (10:32→21:14)
[2023-06-13] MEDS: FAMOTIDINE (10MG/ML) 2ML VL IV SCH (10:33)
[2023-06-13] MEDS: TACROLIMUS 1 MG CAP PO SCH ×2 (10:35→21:32)
[2023-06-13] MEDS: NOREPINEPHRINE 8 MG/250ML KIT 250 ML IV SCH (12:00)
[2023-06-13] MEDS ORDERED: SODIUM CHL 0.9% 1000 ML BAG XX ONE (12:45)
[2023-06-13] MEDS: ALBUMIN 25% 100 ML IV PRN (12:55)
[2023-06-13] MEDS: DAKINS QUARTER STR 0.125% (NaHypochlorite) 473 ML TOPICAL SOL TOP SCH ×2 (16:13→21:32)
[2023-06-13] MEDS ORDERED: ALBUTEROL SULF 2.5 MG/0.5ML(0.5%) NEB SOLN ONE (16:16)
[2023-06-13] MEDS ORDERED: IPRATROPIUM BROM 0.5 MG/2.5ML INH SOL ONE (16:16)
[2023-06-13] MEDS: ALBUTEROL SULF 2.5 MG/0.5ML(0.5%) NEB SOLN HHN SCH (18:19)
[2023-06-13] MEDS: IPRATROPIUM BROM 0.5 MG/2.5ML INH SOL NEB SCH (18:19)
[2023-06-13] MEDS ORDERED: EPOETIN ALFA-EPBX 10,000 UNIT/1ML VIAL SC ONE (21:00)
[2023-06-14] VITALS (42 sets, daily range): BP systolic 108–141; BP diastolic 57–79; PULSE 98–110; RESP 15–26; TEMP 97.7–99.5; O2SAT 96–100
[2023-06-14] MEDS: ACCU-CHEK COMFORT CURVE STRIP VI SCH ×4 (00:15→12:04)
[2023-06-14] MEDS: IPRATROPIUM BROM 0.5 MG/2.5ML INH SOL NEB SCH ×4 (00:17→17:56)
[2023-06-14] MEDS: ALBUTEROL SULF 2.5 MG/0.5ML(0.5%) NEB SOLN HHN SCH ×4 (00:17→17:56)
[2023-06-14] MEDS: fentaNYL Drip 2500mCg/250mlNS 250 ML IV SCH (00:44)
[2023-06-14] MEDS: MIDAZOLAM DRIP 50 mg/50mL 50 ML IV SCH (00:44)
[2023-06-14] MEDS: InsuLIN REG 1unit/0.01ml Soln (100units/ml) SC SCH ×4 (06:00→17:21)
[2023-06-14 06:02] LABS: Basophils # (auto) 0.1 10 ^3/uL (0-0.2); Basophils % (auto) 1.1 % (0.0-2.0); Eosinophils # (auto) 0 10 ^3/uL (0-0.8); Eosinophils % (auto) 0.5 % (0.0-7.0); Hematocrit 25.5 % (41.0-53.0); Hemoglobin 8.5 g/dL (13.5-17.5); Lymphocytes # (auto) 0.4 10 ^3/uL (0.4-5.4); Lymphocytes % (auto) 7.1 % (10.0-50.0); Mean Corpuscular Hemoglobin 28.4 pg (28.0-32.0); Mean Corpuscular Hgb Conc. 33.5 g/dL (32.0-36.0); Mean Corpuscular Volume 84.8 fL (80.0-100.0); Monocytes # (auto) 0.7 10 ^3/uL (0-1.3); Monocytes % (auto) 11.1 % (0.0-12.0); Neutrophils # (auto) 4.8 10 ^3/uL (1.6-8.6); Neutrophils % (auto) 80.2 % (37.0-80.0); Nucleated Red Blood Cells % 0.1 %; Red Blood Cells 3.01 10^6/uL (4.5-5.90); Red Cell Distribution Width 17.8 % (11.8-14.3)
[2023-06-14] MEDS: metroNIDAZOLE 500MG/100ML 100 ML IV SCH ×3 (06:08→21:17)
[2023-06-14] MEDS: VANCOMYCIN HCL 125MG/5ML ORAL SOL GT SCH ×4 (06:08→21:17)
[2023-06-14] MEDS: FUROSEMIDE 40 MG/4 ML VIAL IV SCH ×2 (06:08→17:20)
[2023-06-14 06:10] LABS: Chloride 104 mmol/L (98-107); Potassium 3.7 mmol/L (3.5-5.1); Sodium 142 mmol/L (136-145)
[2023-06-14 06:11] LABS: Anion Gap 10 (5-15); Calcium 8.2 mg/dL (8.7-10.4); Carbon Dioxide 28 mmol/L (20-30)
[2023-06-14 06:16] LABS: BUN/Creatinine Ratio 9.5 (10.0-20.0); Glucose 162 mg/dL (74-106)
[2023-06-14 06:25] LABS: Blood Urea Nitrogen 33 mg/dL (9-23)
[2023-06-14] MEDS: VASOPRESSIN 20 UNITS in SODIUM CHL 0.9% 99 ML IV SCH ×2 (07:53→17:13)
[2023-06-14] MEDS: FAMOTIDINE (10MG/ML) 2ML VL IV SCH (07:53)
[2023-06-14] MEDS: TACROLIMUS 1 MG CAP PO SCH ×2 (07:53→21:17)
[2023-06-14] MEDS: DAKINS QUARTER STR 0.125% (NaHypochlorite) 473 ML TOPICAL SOL TOP SCH ×2 (07:53→21:17)
[2023-06-14] MEDS: NOREPINEPHRINE 8 MG/250ML KIT 250 ML IV SCH (11:58)
[2023-06-15] VITALS (36 sets, daily range): BP systolic 100–148; BP diastolic 60–84; PULSE 99–117; RESP 12–29; TEMP 97.4–98.4; O2SAT 92–100
[2023-06-15] MEDS: IPRATROPIUM BROM 0.5 MG/2.5ML INH SOL NEB SCH ×4 (00:15→17:59)
[2023-06-15] MEDS: ALBUTEROL SULF 2.5 MG/0.5ML(0.5%) NEB SOLN HHN SCH ×4 (00:15→17:59)
[2023-06-15] MEDS: InsuLIN REG 1unit/0.01ml Soln (100units/ml) SC SCH ×4 (01:03→18:00)
[2023-06-15] MEDS: ACCU-CHEK COMFORT CURVE STRIP VI SCH ×4 (01:03→18:53)
[2023-06-15] MEDS: fentaNYL Drip 2500mCg/250mlNS 250 ML IV SCH (01:30)
[2023-06-15] MEDS: MIDAZOLAM DRIP 50 mg/50mL 50 ML IV SCH (01:30)
[2023-06-15] MEDS: VANCOMYCIN HCL 125MG/5ML ORAL SOL GT SCH ×4 (05:23→21:53)
[2023-06-15] MEDS: metroNIDAZOLE 500MG/100ML 100 ML IV SCH ×3 (05:23→21:53)
[2023-06-15] MEDS: FUROSEMIDE 40 MG/4 ML VIAL IV SCH ×2 (05:23→18:53)
[2023-06-15] MEDS: VASOPRESSIN 20 UNITS in SODIUM CHL 0.9% 99 ML IV SCH ×2 (07:00→18:07)
[2023-06-15] MEDS: ALBUMIN 25% 100 ML IV PRN (09:28)
[2023-06-15] MEDS ORDERED: SODIUM CHL 0.9% 1000 ML BAG XX ONE (09:45)
[2023-06-15] MEDS ORDERED: FAMOTIDINE (10MG/ML) 2ML VL IV SCH (10:00)
[2023-06-15] MEDS: NOREPINEPHRINE 8 MG/250ML KIT 250 ML IV SCH (12:00)
[2023-06-15] MEDS: FAMOTIDINE (10MG/ML) 2ML VL IV SCH (13:38)
[2023-06-15] MEDS: TACROLIMUS 1 MG CAP PO SCH ×2 (13:38→22:11)
[2023-06-15] MEDS: DAKINS QUARTER STR 0.125% (NaHypochlorite) 473 ML TOPICAL SOL TOP SCH ×2 (13:38→22:11)
[2023-06-15] MEDS: ACETAMINOPHEN 325 MG TAB PO PRN (21:53)
[2023-06-16] VITALS (22 sets, daily range): BP systolic 117–153; BP diastolic 69–87; PULSE 90–105; RESP 12–20; TEMP 97.5–98.3; O2SAT 96–100
[2023-06-16] MEDS: ACCU-CHEK COMFORT CURVE STRIP VI SCH ×4 (00:10→18:03)
[2023-06-16] MEDS: IPRATROPIUM BROM 0.5 MG/2.5ML INH SOL NEB SCH ×4 (00:12→18:22)
[2023-06-16] MEDS: ALBUTEROL SULF 2.5 MG/0.5ML(0.5%) NEB SOLN HHN SCH ×4 (00:12→18:22)
[2023-06-16] MEDS: fentaNYL Drip 2500mCg/250mlNS 250 ML IV SCH (01:30)
[2023-06-16] MEDS: MIDAZOLAM DRIP 50 mg/50mL 50 ML IV SCH (01:30)
[2023-06-16] MEDS: VASOPRESSIN 20 UNITS in SODIUM CHL 0.9% 99 ML IV SCH (04:42)
[2023-06-16] MEDS: metroNIDAZOLE 500MG/100ML 100 ML IV SCH ×2 (05:55→13:44)
[2023-06-16] MEDS: VANCOMYCIN HCL 125MG/5ML ORAL SOL GT SCH ×4 (05:55→22:00)
[2023-06-16] MEDS: FUROSEMIDE 40 MG/4 ML VIAL IV SCH ×2 (05:55→18:05)
[2023-06-16] MEDS: InsuLIN REG 1unit/0.01ml Soln (100units/ml) SC SCH ×4 (05:56→18:00)
[2023-06-16 07:26] LABS: Basophils # (auto) 0.1 10 ^3/uL (0-0.2); Basophils % (auto) 1.7 % (0.0-2.0); Eosinophils # (auto) 0.1 10 ^3/uL (0-0.8); Eosinophils % (auto) 1.3 % (0.0-7.0); Hematocrit 28.3 % (41.0-53.0); Hemoglobin 9.2 g/dL (13.5-17.5); Lymphocytes # (auto) 0.9 10 ^3/uL (0.4-5.4); Lymphocytes % (auto) 13.6 % (10.0-50.0); Mean Corpuscular Hemoglobin 28.2 pg (28.0-32.0); Mean Corpuscular Hgb Conc. 32.6 g/dL (32.0-36.0); Mean Corpuscular Volume 86.5 fL (80.0-100.0); Monocytes # (auto) 0.8 10 ^3/uL (0-1.3); Monocytes % (auto) 11.8 % (0.0-12.0); Neutrophils # (auto) 4.9 10 ^3/uL (1.6-8.6); Neutrophils % (auto) 71.6 % (37.0-80.0); Nucleated Red Blood Cells % 0.3 %; Red Blood Cells 3.27 10^6/uL (4.5-5.90); Red Cell Distribution Width 18.1 % (11.8-14.3); White Blood Cell 6.8 10^3/uL (4.4-10.8)
[2023-06-16] MEDS: DAKINS QUARTER STR 0.125% (NaHypochlorite) 473 ML TOPICAL SOL TOP SCH ×2 (10:00→22:00)
[2023-06-16] MEDS: FAMOTIDINE (10MG/ML) 2ML VL IV SCH (10:02)
[2023-06-16] MEDS: TACROLIMUS 1 MG CAP NG SCH ×2 (12:58→22:00)
[2023-06-16] MEDS ORDERED: CLINIMIX PER PHARMACY 0 ML IV SCH (14:15)
[2023-06-16 15:15] LABS: Alkaline Phosphatase 166 U/L (46-116); Anion Gap 10 (5-15); Aspartate Aminotransferase 110 U/L (13-40); Calcium 8.4 mg/dL (8.7-10.4); Carbon Dioxide 28 mmol/L (20-30); Chloride 103 mmol/L (98-107); Glucose 123 mg/dL (74-106); Magnesium 1.9 mg/dL (1.6-2.6); Phosphorus 4.5 mg/dL (2.4-5.1); Sodium 141 mmol/L (136-145)
[2023-06-16 15:16] LABS: Bilirubin, Total 8.6 mg/dL (0.2-1.0); Total Protein 6.3 g/dL (5.7-8.2)
[2023-06-16 16:27] LABS: Alanine Aminotransferase 26 U/L (7-40); BUN/Creatinine Ratio 9.4 (10.0-20.0); Blood Urea Nitrogen 31 mg/dL (9-23); Potassium 3.6 mmol/L (3.5-5.1)
[2023-06-16] MEDS ORDERED: POTASSIUM CHL 20MEQ/100ML 100 ML IV ONE (16:45)
[2023-06-16] MEDS: AMINO ACID INFUSION IN D10W 1,000 ML IV NR (20:28)
[2023-06-17] VITALS (29 sets, daily range): BP systolic 111–145; BP diastolic 65–84; PULSE 99–113; RESP 13–27; TEMP 97.4–98.1; O2SAT 94–100
[2023-06-17] MEDS ORDERED: DEXTROSE (50%) 50ML SYRG IV SCH
[2023-06-17] MEDS: ALBUTEROL SULF 2.5 MG/0.5ML(0.5%) NEB SOLN HHN SCH ×4 (00:07→18:10)
[2023-06-17] MEDS: IPRATROPIUM BROM 0.5 MG/2.5ML INH SOL NEB SCH ×4 (00:07→18:10)
[2023-06-17] MEDS: metroNIDAZOLE 500MG/100ML 100 ML IV SCH ×4 (00:19→22:27)
[2023-06-17] MEDS: ACCU-CHEK COMFORT CURVE STRIP VI SCH ×4 (00:20→17:54)
[2023-06-17] MEDS: InsuLIN REG 1unit/0.01ml Soln (100units/ml) SC SCH ×4 (06:00→18:22)
[2023-06-17] MEDS: VANCOMYCIN HCL 125MG/5ML ORAL SOL GT SCH ×4 (06:00→22:26)
[2023-06-17 07:03] LABS: Alanine Aminotransferase 24 U/L (7-40); Albumin 2.7 g/dL (3.2-4.8); Alkaline Phosphatase 162 U/L (46-116); Anion Gap 9 (5-15); Aspartate Aminotransferase 79 U/L (13-40); BUN/Creatinine Ratio 10.1 (10.0-20.0); Blood Urea Nitrogen 36 mg/dL (9-23); Calcium 7.9 mg/dL (8.7-10.4); Carbon Dioxide 30 mmol/L (20-30); Chloride 101 mmol/L (98-107); Magnesium 1.7 mg/dL (1.6-2.6); Potassium 3.1 mmol/L (3.5-5.1); Sodium 140 mmol/L (136-145)
[2023-06-17 07:04] LABS: Bilirubin, Total 7.8 mg/dL (0.2-1.0); Phosphorus 3.7 mg/dL (2.4-5.1); Total Protein 5.8 g/dL (5.7-8.2)
[2023-06-17] MEDS: FUROSEMIDE 40 MG/4 ML VIAL IV SCH ×2 (07:05→17:54)
[2023-06-17 07:06] LABS: Glucose 239 mg/dL (74-106)
[2023-06-17] MEDS: DAKINS QUARTER STR 0.125% (NaHypochlorite) 473 ML TOPICAL SOL TOP SCH ×2 (10:01→22:27)
[2023-06-17] MEDS: FAMOTIDINE (10MG/ML) 2ML VL IV SCH (10:01)
[2023-06-17] MEDS: TACROLIMUS 1 MG CAP NG SCH ×2 (10:02→22:27)
[2023-06-17] MEDS: POTASSIUM CHL 20MEQ/100ML 100 ML IV SCH ×2 (11:23→13:06)
[2023-06-17] MEDS ORDERED: MAGNESIUM SULFATE 1GM/100ML 100 ML IV ONE (13:00)
[2023-06-17] MEDS: AMINO ACID INFUSION IN D10W 1,000 ML IV NR (22:26)
[2023-06-18] VITALS (21 sets, daily range): BP systolic 117–143; BP diastolic 70–88; PULSE 97–117; RESP 12–21; TEMP 97.3–98; O2SAT 88–100
[2023-06-18] MEDS: ALBUTEROL SULF 2.5 MG/0.5ML(0.5%) NEB SOLN HHN SCH ×4 (00:03→18:54)
[2023-06-18] MEDS: IPRATROPIUM BROM 0.5 MG/2.5ML INH SOL NEB SCH ×4 (00:03→18:54)
[2023-06-18] MEDS: InsuLIN REG 1unit/0.01ml Soln (100units/ml) SC SCH ×4 (06:00→17:19)
[2023-06-18 06:56] LABS: Alanine Aminotransferase 29 U/L (7-40); Albumin 2.7 g/dL (3.2-4.8); Alkaline Phosphatase 180 U/L (46-116); Anion Gap 8 (5-15); Aspartate Aminotransferase 87 U/L (13-40); BUN/Creatinine Ratio 12.2 (10.0-20.0); Calcium 8.5 mg/dL (8.7-10.4); Carbon Dioxide 29 mmol/L (20-30); Chloride 97 mmol/L (98-107); Glucose 303 mg/dL (74-106); Magnesium 1.7 mg/dL (1.6-2.6); Phosphorus 2.8 mg/dL (2.4-5.1); Potassium 3.5 mmol/L (3.5-5.1)
[2023-06-18 06:57] LABS: Bilirubin, Total 8.4 mg/dL (0.2-1.0)
[2023-06-18 06:58] LABS: Blood Urea Nitrogen 47 mg/dL (9-23); Sodium 134 mmol/L (136-145)
[2023-06-18] MEDS: ACCU-CHEK COMFORT CURVE STRIP VI SCH ×4 (08:32→17:13)
[2023-06-18] MEDS: metroNIDAZOLE 500MG/100ML 100 ML IV SCH ×3 (08:32→20:58)
[2023-06-18] MEDS: FAMOTIDINE (10MG/ML) 2ML VL IV SCH (08:32)
[2023-06-18] MEDS: FUROSEMIDE 40 MG/4 ML VIAL IV SCH ×2 (08:33→17:13)
[2023-06-18] MEDS: DAKINS QUARTER STR 0.125% (NaHypochlorite) 473 ML TOPICAL SOL TOP SCH ×2 (08:34→22:00)
[2023-06-18] MEDS: VANCOMYCIN HCL 125MG/5ML ORAL SOL GT SCH ×4 (08:34→20:58)
[2023-06-18] MEDS: TACROLIMUS 1 MG CAP NG SCH ×2 (08:34→22:00)
[2023-06-18] MEDS ORDERED: POTASSIUM EFFERVESENT TAB 25 MEQ GT ONE (12:00)
[2023-06-18] MEDS: AMINO ACID INFUSION IN D10W 1,000 ML IV NR (20:52)
[2023-06-18] MEDS: ACETAMINOPHEN 325 MG TAB PO PRN (20:57)
[2023-06-18] MEDS ORDERED: GABAPENTIN 400 MG CAP PO ONE (22:45)
[2023-06-19] VITALS (29 sets, daily range): BP systolic 111–138; BP diastolic 65–81; PULSE 93–117; RESP 16–30; TEMP 97.5–98.2; O2SAT 96–100
[2023-06-19] MEDS: IPRATROPIUM BROM 0.5 MG/2.5ML INH SOL NEB SCH ×5 (00:02→21:58)
[2023-06-19] MEDS: ALBUTEROL SULF 2.5 MG/0.5ML(0.5%) NEB SOLN HHN SCH ×5 (00:02→21:58)
[2023-06-19] MEDS: ACCU-CHEK COMFORT CURVE STRIP VI SCH ×4 (02:41→16:37)
[2023-06-19] MEDS: InsuLIN REG 1unit/0.01ml Soln (100units/ml) SC SCH ×4 (02:42→16:39)
[2023-06-19] MEDS: VANCOMYCIN HCL 125MG/5ML ORAL SOL GT SCH ×4 (06:23→21:44)
[2023-06-19] MEDS: FUROSEMIDE 40 MG/4 ML VIAL IV SCH ×2 (06:23→16:37)
[2023-06-19] MEDS: metroNIDAZOLE 500MG/100ML 100 ML IV SCH ×2 (06:23→13:32)
[2023-06-19] MEDS: FAMOTIDINE (10MG/ML) 2ML VL IV SCH (07:57)
[2023-06-19] MEDS: predniSONE 5 MG TAB PO SCH (07:58)
[2023-06-19] MEDS: DAKINS QUARTER STR 0.125% (NaHypochlorite) 473 ML TOPICAL SOL TOP SCH ×2 (07:58→21:44)
[2023-06-19] MEDS: TACROLIMUS 1 MG CAP NG SCH ×2 (07:59→21:43)
[2023-06-19 08:12] LABS: Alanine Aminotransferase 33 U/L (7-40); Albumin 2.6 g/dL (3.2-4.8); Alkaline Phosphatase 256 U/L (46-116); Anion Gap 7 (5-15); Aspartate Aminotransferase 114 U/L (13-40); BUN/Creatinine Ratio 16.3 (10.0-20.0); Calcium 8.4 mg/dL (8.5-10.1); Carbon Dioxide 28 mmol/L (20-30); Chloride 98 mmol/L (98-107); Glucose 250 mg/dL (74-106); Potassium 4.1 mmol/L (3.5-5.1); Sodium 133 mmol/L (136-145)
[2023-06-19 08:13] LABS: Bilirubin, Total 9.8 mg/dL (0.2-1.0); Phosphorus 1.6 mg/dL (2.4-5.1)
[2023-06-19 08:27] LABS: Blood Urea Nitrogen 65 mg/dL (9-23)
[2023-06-19 09:07] LABS: Magnesium 1.4 mg/dL (1.6-2.6)
[2023-06-19 09:54] LABS: Basophils # (auto) 0.1 10 ^3/uL (0-0.2); Hemoglobin 8.4 g/dL (13.5-17.5); Lymphocytes # (auto) 0.9 10 ^3/uL (0.4-5.4); Nucleated Red Blood Cells % 0.1 %; White Blood Cell 11.6 10^3/uL (4.4-10.8)
[2023-06-19 09:56] LABS: Basophils % (auto) 0.8 % (0.0-2.0); Eosinophils # (auto) 0 10 ^3/uL (0-0.8); Eosinophils % (auto) 0.4 % (0.0-7.0); Hematocrit 25.5 % (41.0-53.0); Lymphocytes % (auto) 7.5 % (10.0-50.0); Mean Corpuscular Hemoglobin 28.5 pg (28.0-32.0); Mean Corpuscular Hgb Conc. 32.8 g/dL (32.0-36.0); Mean Corpuscular Volume 86.9 fL (80.0-100.0); Monocytes # (auto) 0.8 10 ^3/uL (0-1.3); Monocytes % (auto) 7.1 % (0.0-12.0); Neutrophils # (auto) 9.8 10 ^3/uL (1.6-8.6); Neutrophils % (auto) 84.2 % (37.0-80.0); Red Blood Cells 2.93 10^6/uL (4.5-5.90); Red Cell Distribution Width 18.9 % (11.8-14.3)
[2023-06-19] MEDS ORDERED: HYDROcodone-ACET 5/325MG TAB PO PRN (13:30)
[2023-06-19] MEDS ORDERED: SODIUM PHOSPHATES 20 MEQ in SODIUM CHL 0.9% 100 ML IV ONE (13:30)
[2023-06-19] MEDS: MAGNESIUM SULFATE 1GM/100ML 100 ML IV SCH ×3 (13:42→15:49)
[2023-06-19] MEDS ORDERED: CATHFLO ACTIVASE (ALTEPLASE) 2 MG VIAL IV ONE (14:00)
[2023-06-19] MEDS: AMINO ACID INFUSION IN D10W 1,000 ML IV NR (20:54)
[2023-06-20] VITALS (32 sets, daily range): BP systolic 61–132; BP diastolic 20–79; PULSE 95–122; RESP 15–24; TEMP 97.4–98.1; O2SAT 91–100
[2023-06-20] MEDS: ACCU-CHEK COMFORT CURVE STRIP VI SCH ×4 (00:09→17:37)
[2023-06-20] MEDS: InsuLIN REG 1unit/0.01ml Soln (100units/ml) SC SCH ×4 (00:14→17:15)
[2023-06-20 05:21] LABS: Alanine Aminotransferase 34 U/L (7-40); Albumin 2.6 g/dL (3.2-4.8); Alkaline Phosphatase 291 U/L (46-116); Anion Gap 7 (5-15); Aspartate Aminotransferase 91 U/L (13-40); BUN/Creatinine Ratio 17.8 (10.0-20.0); Blood Urea Nitrogen 74 mg/dL (9-23); Calcium 8.2 mg/dL (8.7-10.4); Carbon Dioxide 27 mmol/L (20-30); Chloride 94 mmol/L (98-107); Glucose 244 mg/dL (74-106)
[2023-06-20 05:22] LABS: Bilirubin, Total 8.1 mg/dL (0.2-1.0); Total Protein 6.1 g/dL (5.7-8.2)
[2023-06-20 05:28] LABS: Sodium 128 mmol/L (136-145)
[2023-06-20] MEDS: FUROSEMIDE 40 MG/4 ML VIAL IV SCH (05:59)
[2023-06-20] MEDS: VANCOMYCIN HCL 125MG/5ML ORAL SOL GT SCH ×4 (05:59→22:08)
[2023-06-20] MEDS ORDERED: SODIUM CHL 0.9% 1000 ML BAG XX ONE (06:45)
[2023-06-20] MEDS: ALBUTEROL SULF 2.5 MG/0.5ML(0.5%) NEB SOLN HHN SCH ×4 (07:13→23:45)
[2023-06-20] MEDS: IPRATROPIUM BROM 0.5 MG/2.5ML INH SOL NEB SCH ×4 (07:13→23:45)
[2023-06-20] MEDS: DAKINS QUARTER STR 0.125% (NaHypochlorite) 473 ML TOPICAL SOL TOP SCH ×2 (10:00→22:09)
[2023-06-20] MEDS ORDERED: HEPARIN DRIP/D5W 100UNITS/ML 250 ML IV SCH ×2 (12:00→22:15)
[2023-06-20] MEDS ORDERED: HEPARIN SODIUM (PORCINE) 5000 UNITS/ML 1ML VIAL IV ONE (12:00)
[2023-06-20] MEDS ORDERED: SODIUM CHLORIDE 0.9% 500 ML IV ONE (12:30)
[2023-06-20 13:07] LABS: INR 1.6 (0.9-1.15); Partial Thromboplastin Time 44.4 SEC (24.5-34.5); Prothrombin Time 16.3 sec (9.3-11.8)
[2023-06-20 13:11] LABS: Basophils # (auto) 0.1 10 ^3/uL (0-0.2); Hematocrit 23.1 % (41.0-53.0); Hemoglobin 7.7 g/dL (13.5-17.5); White Blood Cell 13.4 10^3/uL (4.4-10.8)
[2023-06-20 13:13] LABS: Basophils % (auto) 0.4 % (0.0-2.0); Eosinophils # (auto) 0.1 10 ^3/uL (0-0.8); Eosinophils % (auto) 0.5 % (0.0-7.0); Lymphocytes # (auto) 1.3 10 ^3/uL (0.4-5.4); Lymphocytes % (auto) 9.4 % (10.0-50.0); Mean Corpuscular Hgb Conc. 33.2 g/dL (32.0-36.0); Mean Corpuscular Volume 87.5 fL (80.0-100.0); Monocytes % (auto) 7.2 % (0.0-12.0); Neutrophils # (auto) 11.1 10 ^3/uL (1.6-8.6); Neutrophils % (auto) 82.5 % (37.0-80.0); Nucleated Red Blood Cells % 0.1 %; Red Blood Cells 2.64 10^6/uL (4.5-5.90); Red Cell Distribution Width 19.6 % (11.8-14.3)
[2023-06-20] MEDS: ALBUMIN 25% 100 ML IV PRN ×2 (14:20→15:20)
[2023-06-20] MEDS: FAMOTIDINE (10MG/ML) 2ML VL IV SCH (17:37)
[2023-06-20] MEDS: predniSONE 5 MG TAB PO SCH (17:37)
[2023-06-20] MEDS: TACROLIMUS 1 MG CAP NG SCH ×2 (17:38→22:08)
[2023-06-20] MEDS: Nepro With Carbsteady ButterPecan 8oz Carton PO SCH (18:00)
[2023-06-20] MEDS: AMINO ACID INFUSION IN D10W 1,000 ML IV NR (20:23)
[2023-06-20] MEDS ORDERED: EPOETIN ALFA-EPBX 10,000 UNIT/1ML VIAL SC ONE (21:00)
[2023-06-20 21:35] LABS: INR 1.79 (0.9-1.15); Prothrombin Time 18.1 sec (9.3-11.8)
[2023-06-20 22:03] LABS: Partial Thromboplastin Time > 139.0 SEC (24.5-34.5)
[2023-06-21] VITALS (36 sets, daily range): BP systolic 98–129; BP diastolic 14–51; PULSE 86–110; RESP 14–29; TEMP 97.3–100; O2SAT 89–100
[2023-06-21] MEDS: ACCU-CHEK COMFORT CURVE STRIP VI SCH ×5 (00:23→22:22)
[2023-06-21] MEDS: InsuLIN REG 1unit/0.01ml Soln (100units/ml) SC SCH ×5 (00:30→22:22)
[2023-06-21 05:15] LABS: Alanine Aminotransferase 52 U/L (7-40); Albumin 2.9 g/dL (3.2-4.8); Alkaline Phosphatase 809 U/L (46-116); Anion Gap 7 (5-15); Aspartate Aminotransferase 244 U/L (13-40); Calcium 8.4 mg/dL (8.7-10.4); Carbon Dioxide 28 mmol/L (20-30); Chloride 98 mmol/L (98-107); Glucose 265 mg/dL (74-106); Magnesium 1.8 mg/dL (1.6-2.6); Potassium 3.8 mmol/L (3.5-5.1)
[2023-06-21 05:16] LABS: Bilirubin, Total 9.9 mg/dL (0.2-1.0); Phosphorus 1.8 mg/dL (2.4-5.1); Total Protein 5.8 g/dL (5.7-8.2)
[2023-06-21 05:52] LABS: Blood Urea Nitrogen 40 mg/dL (9-23); Sodium 133 mmol/L (136-145)
[2023-06-21 06:06] LABS: BUN/Creatinine Ratio 17.3 (10.0-20.0)
[2023-06-21 06:23] LABS: INR 1.78 (0.9-1.15); Partial Thromboplastin Time > 139.0 SEC (24.5-34.5)
[2023-06-21] MEDS: ALBUTEROL SULF 2.5 MG/0.5ML(0.5%) NEB SOLN HHN SCH ×4 (06:28→23:18)
[2023-06-21] MEDS: IPRATROPIUM BROM 0.5 MG/2.5ML INH SOL NEB SCH ×4 (06:28→23:19)
[2023-06-21] MEDS: VANCOMYCIN HCL 125MG/5ML ORAL SOL GT SCH ×4 (06:52→20:17)
[2023-06-21] MEDS ORDERED: HEPARIN DRIP/D5W 100UNITS/ML 250 ML IV SCH (07:30)
[2023-06-21] MEDS: Nepro With Carbsteady ButterPecan 8oz Carton PO SCH ×3 (08:00→18:00)
[2023-06-21] MEDS ORDERED: SODIUM PHOSPHATES 24 MEQ in SODIUM CHL 0.9% 100 ML IV ONE (10:00)
[2023-06-21] MEDS: DAKINS QUARTER STR 0.125% (NaHypochlorite) 473 ML TOPICAL SOL TOP SCH ×2 (11:29→20:18)
[2023-06-21] MEDS: predniSONE 5 MG TAB PO SCH (11:39)
[2023-06-21] MEDS: FAMOTIDINE (10MG/ML) 2ML VL IV SCH (11:39)
[2023-06-21] MEDS: TACROLIMUS 1 MG CAP PO SCH ×2 (12:29→20:17)
[2023-06-21] MEDS ORDERED: SODIUM CHLORIDE 0.9% 1,000 ML IV SCH (12:30)
[2023-06-21] MEDS ORDERED: FUROSEMIDE 40 MG/4 ML VIAL IV PRN (12:30)
[2023-06-21] MEDS ORDERED: ALBUMIN 25% 100 ML IV ONE (12:30)
[2023-06-21] MEDS ORDERED: CATHFLO ACTIVASE (ALTEPLASE) 2 MG VIAL IV ONE (13:30)
[2023-06-21 15:24] LABS: INR 1.58 (0.9-1.15); Prothrombin Time 16.1 sec (9.3-11.8)
[2023-06-21 15:26] LABS: Partial Thromboplastin Time 87.9 SEC (24.5-34.5)
[2023-06-21] MEDS: HEPARIN DRIP/D5W 100UNITS/ML 250 ML IV SCH (15:38)
[2023-06-21] MEDS ORDERED: SODIUM CHLORIDE 0.9% 1,900 ML IV ONE (19:00)
[2023-06-21] MEDS: AMINO ACID INFUSION IN D10W 1,000 ML IV NR (20:17)
[2023-06-21 22:41] LABS: INR 1.59 (0.9-1.15); Partial Thromboplastin Time 68.7 SEC (24.5-34.5); Prothrombin Time 16.2 sec (9.3-11.8)
[2023-06-22] VITALS (31 sets, daily range): BP systolic 103–132; BP diastolic 18–38; PULSE 82–105; RESP 18–28; TEMP 97.3–98.1; O2SAT 97–100
[2023-06-22] MEDS: ACCU-CHEK COMFORT CURVE STRIP VI SCH ×5 (05:00→23:26)
[2023-06-22] MEDS: InsuLIN REG 1unit/0.01ml Soln (100units/ml) SC SCH ×5 (05:06→23:26)
[2023-06-22] MEDS: VANCOMYCIN HCL 125MG/5ML ORAL SOL GT SCH ×5 (05:09→23:19)
[2023-06-22] MEDS: HEPARIN DRIP/D5W 100UNITS/ML 250 ML IV SCH (05:09)
[2023-06-22 06:37] LABS: INR 1.46 (0.9-1.15); Partial Thromboplastin Time 59.4 SEC (24.5-34.5)
[2023-06-22 06:53] LABS: Mean Corpuscular Hgb Conc. 34.2 g/dL (32.0-36.0); Red Blood Cells 2.25 10^6/uL (4.5-5.90)
[2023-06-22 06:56] LABS: Mean Corpuscular Hemoglobin 30.4 pg (28.0-32.0); Mean Corpuscular Volume 88.8 fL (80.0-100.0); White Blood Cell 8.8 10^3/uL (4.4-10.8)
[2023-06-22] MEDS: IPRATROPIUM BROM 0.5 MG/2.5ML INH SOL NEB SCH ×3 (06:58→18:26)
[2023-06-22] MEDS: ALBUTEROL SULF 2.5 MG/0.5ML(0.5%) NEB SOLN HHN SCH ×3 (06:58→18:26)
[2023-06-22 07:08] LABS: Alanine Aminotransferase 68 U/L (7-40); Alkaline Phosphatase 804 U/L (46-116); Anion Gap 10 (5-15); Calcium 8.4 mg/dL (8.7-10.4); Carbon Dioxide 24 mmol/L (20-30); Chloride 98 mmol/L (98-107); Glucose 242 mg/dL (74-106); Magnesium 1.6 mg/dL (1.6-2.6); Sodium 132 mmol/L (136-145)
[2023-06-22 07:09] LABS: Albumin 3.1 g/dL (3.2-4.8); Aspartate Aminotransferase 244 U/L (13-40); Phosphorus 3.7 mg/dL (2.4-5.1)
[2023-06-22 07:10] LABS: Bilirubin, Total 10.6 mg/dL (0.2-1.0); Hemoglobin 6.8 g/dL (13.5-17.5); Total Protein 6.1 g/dL (5.7-8.2)
[2023-06-22 07:11] LABS: Band Neutrophils % (manual) 0; Basophils % (manual) 0 (0.0-2.0); Blast Cells 0; Eosinophils % (manual) 0 (0-7); Metamyelocytes % 0; Promyelocytes % 0; Reactive Lymphocytes 0
[2023-06-22 07:22] LABS: Blood Urea Nitrogen 50 mg/dL (9-23)
[2023-06-22 07:46] LABS: BUN/Creatinine Ratio 18.3 (10.0-20.0)
[2023-06-22] MEDS: Nepro With Carbsteady ButterPecan 8oz Carton PO SCH ×2 (08:00→12:00)
[2023-06-22] MEDS: TACROLIMUS 1 MG CAP PO SCH ×2 (08:36→23:14)
[2023-06-22] MEDS: FAMOTIDINE (10MG/ML) 2ML VL IV SCH (08:36)
[2023-06-22] MEDS: predniSONE 5 MG TAB PO SCH (08:36)
[2023-06-22] MEDS: DAKINS QUARTER STR 0.125% (NaHypochlorite) 473 ML TOPICAL SOL TOP SCH ×2 (08:44→23:23)
[2023-06-22 09:26] LABS: Lymphocytes % (manual) 10 (10.0-50.0); Monocytes % (manual) 7 (0-12); Myelocytes % 2; Platelet Estimate Decreased
[2023-06-22] MEDS ORDERED: MAGNESIUM SULFATE 1GM/100ML 100 ML IV ONE (15:15)
[2023-06-22] MEDS ORDERED: FUROSEMIDE 40 MG/4 ML VIAL IV ONE (15:15)
[2023-06-22 17:02] LABS: INR 1.5 (0.9-1.15); Prothrombin Time 15.3 sec (9.3-11.8)
[2023-06-22 17:05] LABS: Partial Thromboplastin Time 108.1 SEC (24.5-34.5)
[2023-06-22] MEDS: Glucerna Carbsteady SHAKE Vanilla 8oz PO SCH (18:00)
[2023-06-22 20:01] LABS: INR 1.45 (0.9-1.15); Partial Thromboplastin Time 48.1 SEC (24.5-34.5); Prothrombin Time 14.9 sec (9.3-11.8)
[2023-06-22] MEDS: AMINO ACID INFUSION IN D10W 1,000 ML IV NR (21:35)
[2023-06-22 22:49] LABS: Hematocrit 26.4 % (41.0-53.0); Hemoglobin 8.8 g/dL (13.5-17.5); Mean Corpuscular Hemoglobin 29.9 pg (28.0-32.0); Mean Corpuscular Hgb Conc. 33.2 g/dL (32.0-36.0); Mean Corpuscular Volume 90.1 fL (80.0-100.0); Red Blood Cells 2.93 10^6/uL (4.5-5.90); Red Cell Distribution Width 19.1 % (11.8-14.3); White Blood Cell 9.9 10^3/uL (4.4-10.8)
[2023-06-22 22:58] LABS: Band Neutrophils % (manual) 0; Basophils % (manual) 0 (0.0-2.0); Blast Cells 0; Eosinophils % (manual) 0 (0-7); Metamyelocytes % 0; Myelocytes % 0; Promyelocytes % 0; Reactive Lymphocytes 0
[2023-06-22 23:15] LABS: Lymphocytes % (manual) 11 (10.0-50.0); Monocytes % (manual) 3 (0-12)
[2023-06-22 23:16] LABS: Platelet Estimate Adequate
[2023-06-22] MEDS: PANTOPRAZOLE 40 MG/10 ML VIAL INJ IV SCH (23:19)
[2023-06-23] VITALS (30 sets, daily range): BP systolic 107–127; BP diastolic 20–42; PULSE 91–111; RESP 18–27; TEMP 97.6–98.1; O2SAT 97–100
[2023-06-23] MEDS: IPRATROPIUM BROM 0.5 MG/2.5ML INH SOL NEB SCH ×4 (01:25→17:59)
[2023-06-23] MEDS: ALBUTEROL SULF 2.5 MG/0.5ML(0.5%) NEB SOLN HHN SCH ×4 (01:25→17:59)
[2023-06-23 01:28] LABS: INR 1.4 (0.9-1.15); Partial Thromboplastin Time 48.1 SEC (24.5-34.5); Prothrombin Time 14.4 sec (9.3-11.8)
[2023-06-23 05:09] LABS: Hematocrit 27.7 % (41.0-53.0); Hemoglobin 9.2 g/dL (13.5-17.5); Mean Corpuscular Hemoglobin 29.7 pg (28.0-32.0); Mean Corpuscular Hgb Conc. 33.2 g/dL (32.0-36.0); Mean Corpuscular Volume 89.5 fL (80.0-100.0); Red Blood Cells 3.09 10^6/uL (4.5-5.90); Red Cell Distribution Width 19.2 % (11.8-14.3); White Blood Cell 12.2 10^3/uL (4.4-10.8)
[2023-06-23 05:13] LABS: Alanine Aminotransferase 73 U/L (7-40); Alkaline Phosphatase 820 U/L (46-116); Anion Gap 11 (5-15); Aspartate Aminotransferase 191 U/L (13-40); Calcium 8.5 mg/dL (8.7-10.4); Carbon Dioxide 22 mmol/L (20-30); Chloride 97 mmol/L (98-107); Glucose 159 mg/dL (74-106); Magnesium 1.7 mg/dL (1.6-2.6); Phosphorus 3.2 mg/dL (2.4-5.1); Potassium 4.2 mmol/L (3.5-5.1); Sodium 130 mmol/L (136-145)
[2023-06-23 05:14] LABS: Total Protein 6.4 g/dL (5.7-8.2)
[2023-06-23 05:24] LABS: Basophils % (manual) 0 (0.0-2.0); Blast Cells 0; Eosinophils % (manual) 0 (0-7); Metamyelocytes % 0; Monocytes % (manual) 0 (0-12); Myelocytes % 0; Promyelocytes % 0; Reactive Lymphocytes 0
[2023-06-23 05:26] LABS: BUN/Creatinine Ratio 18.1 (10.0-20.0)
[2023-06-23 05:54] LABS: Blood Urea Nitrogen 63 mg/dL (9-23)
[2023-06-23] MEDS: InsuLIN REG 1unit/0.01ml Soln (100units/ml) SC SCH ×3 (06:00→17:05)
[2023-06-23] MEDS: ACCU-CHEK COMFORT CURVE STRIP VI SCH ×3 (06:01→17:05)
[2023-06-23] MEDS: VANCOMYCIN HCL 125MG/5ML ORAL SOL GT SCH ×2 (06:02→11:29)
[2023-06-23] MEDS: SUCRALFATE 1 GM/10 ML ORAL SUSP PO SCH ×2 (06:03→17:12)
[2023-06-23 07:49] LABS: Band Neutrophils % (manual) 13; Lymphocytes % (manual) 13 (10.0-50.0); Platelet Estimate Adequate
[2023-06-23] MEDS: predniSONE 5 MG TAB PO SCH (08:05)
[2023-06-23] MEDS: PANTOPRAZOLE 40 MG/10 ML VIAL INJ IV SCH ×2 (08:05→22:27)
[2023-06-23] MEDS: Glucerna Carbsteady SHAKE Vanilla 8oz PO SCH ×2 (08:05→17:05)
[2023-06-23] MEDS: TACROLIMUS 1 MG CAP PO SCH ×2 (08:06→22:27)
[2023-06-23] MEDS: DAKINS QUARTER STR 0.125% (NaHypochlorite) 473 ML TOPICAL SOL TOP SCH ×2 (08:06→22:31)
[2023-06-23] MEDS ORDERED: FAMOTIDINE (10MG/ML) 2ML VL IV SCH (10:00)
[2023-06-23 10:32] LABS: INR 1.45 (0.9-1.15); Partial Thromboplastin Time 52.7 SEC (24.5-34.5); Prothrombin Time 14.9 sec (9.3-11.8)
[2023-06-23] MEDS ORDERED: FUROSEMIDE 40 MG/4 ML VIAL IV ONE (15:00)
[2023-06-23] MEDS ORDERED: ALBUMIN 25% 100 ML IV ONE (15:00)
[2023-06-23] MEDS: HEPARIN DRIP/D5W 100UNITS/ML 250 ML IV SCH (15:45)
[2023-06-23 16:24] LABS: INR 1.42 (0.9-1.15); Partial Thromboplastin Time 65.2 SEC (24.5-34.5); Prothrombin Time 14.6 sec (9.3-11.8)
[2023-06-23] MEDS: NOREPINEPHRINE 8 MG/250ML KIT 250 ML IV SCH (18:45)
[2023-06-23] MEDS ORDERED: PIPERACILLIN-TAZOB 3.375GM 100 ML IV ONE (18:45)
[2023-06-23] MEDS: AMINO ACID INFUSION IN D10W 1,000 ML IV NR (22:27)
[2023-06-23 22:33] LABS: INR 1.45 (0.9-1.15); Partial Thromboplastin Time 53.6 SEC (24.5-34.5); Prothrombin Time 14.9 sec (9.3-11.8)
[2023-06-24] VITALS (36 sets, daily range): BP systolic 97–171; BP diastolic 17–79; PULSE 94–112; RESP 18–36; TEMP 97.7–98.1; O2SAT 92–100
[2023-06-24] MEDS: ALBUTEROL SULF 2.5 MG/0.5ML(0.5%) NEB SOLN HHN SCH ×4 (00:21→18:45)
[2023-06-24] MEDS: IPRATROPIUM BROM 0.5 MG/2.5ML INH SOL NEB SCH ×4 (00:21→18:45)
[2023-06-24] MEDS: ACCU-CHEK COMFORT CURVE STRIP VI SCH ×4 (01:15→14:53)
[2023-06-24] MEDS: InsuLIN REG 1unit/0.01ml Soln (100units/ml) SC SCH ×4 (01:19→17:01)
[2023-06-24] MEDS ORDERED: ALBUMIN 25% 100 ML IV ONE (05:00)
[2023-06-24 05:45] LABS: Chloride 95 mmol/L (98-107); Potassium 4.7 mmol/L (3.5-5.1)
[2023-06-24 05:49] LABS: Anion Gap 10 (5-15); Carbon Dioxide 19 mmol/L (20-30)
[2023-06-24 05:50] LABS: Calcium 8.3 mg/dL (8.7-10.4)
[2023-06-24 05:55] LABS: BUN/Creatinine Ratio 18.9 (10.0-20.0); Magnesium 1.7 mg/dL (1.6-2.6)
[2023-06-24 05:56] LABS: Alanine Aminotransferase 86 U/L (7-40); Aspartate Aminotransferase 238 U/L (13-40)
[2023-06-24 05:57] LABS: Bilirubin, Total 11.4 mg/dL (0.2-1.0); Phosphorus 3.4 mg/dL (2.4-5.1); Total Protein 6.2 g/dL (5.7-8.2)
[2023-06-24 06:09] LABS: Glucose 283 mg/dL (74-106); Sodium 124 mmol/L (136-145)
[2023-06-24 06:10] LABS: Blood Urea Nitrogen 76 mg/dL (9-23)
[2023-06-24] MEDS ORDERED: SODIUM CHL 0.9% 1000 ML BAG XX ONE (07:00)
[2023-06-24 07:35] LABS: INR 1.43 (0.9-1.15); Partial Thromboplastin Time 55.2 SEC (24.5-34.5); Prothrombin Time 14.7 sec (9.3-11.8)
[2023-06-24 07:54] LABS: Hematocrit 27.8 % (41.0-53.0); Hemoglobin 9.2 g/dL (13.5-17.5); Mean Corpuscular Hemoglobin 29.8 pg (28.0-32.0); Mean Corpuscular Volume 90.2 fL (80.0-100.0); Red Blood Cells 3.08 10^6/uL (4.5-5.90); White Blood Cell 16.1 10^3/uL (4.4-10.8)
[2023-06-24] MEDS: SUCRALFATE 1 GM/10 ML ORAL SUSP PO SCH ×2 (08:01→17:01)
[2023-06-24] MEDS: predniSONE 5 MG TAB PO SCH (08:01)
[2023-06-24] MEDS: PANTOPRAZOLE 40 MG/10 ML VIAL INJ IV SCH ×2 (08:01→22:18)
[2023-06-24] MEDS: Glucerna Carbsteady SHAKE Vanilla 8oz PO SCH ×2 (08:03→14:47)
[2023-06-24] MEDS: DAKINS QUARTER STR 0.125% (NaHypochlorite) 473 ML TOPICAL SOL TOP SCH ×2 (08:03→22:18)
[2023-06-24] MEDS: TACROLIMUS 1 MG CAP PO SCH ×2 (08:03→22:17)
[2023-06-24 08:05] LABS: Band Neutrophils % (manual) 0; Basophils % (manual) 0 (0.0-2.0); Blast Cells 0; Eosinophils % (manual) 0 (0-7); Metamyelocytes % 0; Promyelocytes % 0; Reactive Lymphocytes 0
[2023-06-24] MEDS: AZITHROMYCIN 500MG/ 250ML 250 ML IV SCH (09:34)
[2023-06-24] MEDS: cefTRIAXone 1GM/50ML D5W 50 ML IV SCH (09:34)
[2023-06-24 13:40] LABS: Lymphocytes % (manual) 11 (10.0-50.0); Monocytes % (manual) 4 (0-12); Myelocytes % 1; Platelet Estimate Adequate
[2023-06-24] MEDS ORDERED: HEPARIN SODIUM (PORCINE) 5000 UNITS/ML 1ML VIAL IV ONE (14:45)
[2023-06-24] MEDS: HEPARIN DRIP/D5W 100UNITS/ML 250 ML IV SCH (15:45)
[2023-06-24] MEDS ORDERED: CATHFLO ACTIVASE (ALTEPLASE) 2 MG VIAL IV ONE (18:15)
[2023-06-24] MEDS: NOREPINEPHRINE 8 MG/250ML KIT 250 ML IV SCH (18:20)
[2023-06-24] MEDS ORDERED: AMINO ACID INFUSION IN D10W 1,000 ML IV NR (20:00)
[2023-06-24] MEDS: URSODIOL 300 MG PO SCH (22:00)
[2023-06-25] VITALS (31 sets, daily range): BP systolic 97–180; BP diastolic 23–78; PULSE 92–104; RESP 14–26; TEMP 97.7–98.2; O2SAT 94–100
[2023-06-25] MEDS: IPRATROPIUM BROM 0.5 MG/2.5ML INH SOL NEB SCH ×4 (00:19→17:57)
[2023-06-25] MEDS: ALBUTEROL SULF 2.5 MG/0.5ML(0.5%) NEB SOLN HHN SCH ×4 (00:19→17:57)
[2023-06-25] MEDS: ACCU-CHEK COMFORT CURVE STRIP VI SCH ×4 (00:53→17:59)
[2023-06-25] MEDS: InsuLIN REG 1unit/0.01ml Soln (100units/ml) SC SCH ×4 (00:54→18:12)
[2023-06-25 06:18] LABS: INR 1.45 (0.9-1.15); Prothrombin Time 14.9 sec (9.3-11.8)
[2023-06-25] MEDS: SUCRALFATE 1 GM/10 ML ORAL SUSP PO SCH ×2 (06:22→17:59)
[2023-06-25 06:25] LABS: Alanine Aminotransferase 117 U/L (7-40); Anion Gap 9 (5-15); Aspartate Aminotransferase 383 U/L (13-40); Calcium 8.4 mg/dL (8.7-10.4); Carbon Dioxide 22 mmol/L (20-30); Chloride 100 mmol/L (98-107); Glucose 254 mg/dL (74-106); Magnesium 1.9 mg/dL (1.6-2.6)
[2023-06-25 06:26] LABS: Bilirubin, Total 11.9 mg/dL (0.2-1.0); Phosphorus 3.1 mg/dL (2.4-5.1); Total Protein 6.1 g/dL (5.7-8.2)
[2023-06-25 06:35] LABS: Alkaline Phosphatase 1182 U/L (46-116)
[2023-06-25 06:37] LABS: BUN/Creatinine Ratio 13.9 (10.0-20.0)
[2023-06-25 06:49] LABS: Blood Urea Nitrogen 39 mg/dL (9-23); Sodium 131 mmol/L (136-145)
[2023-06-25] MEDS: DAKINS QUARTER STR 0.125% (NaHypochlorite) 473 ML TOPICAL SOL TOP SCH ×2 (10:00→22:00)
[2023-06-25] MEDS: URSODIOL 300 MG PO SCH (10:00)
[2023-06-25] MEDS: cefTRIAXone 1GM/50ML D5W 50 ML IV SCH (10:37)
[2023-06-25] MEDS: PANTOPRAZOLE 40 MG/10 ML VIAL INJ IV SCH ×2 (10:41→21:36)
[2023-06-25] MEDS: Glucerna Carbsteady SHAKE Vanilla 8oz PO SCH ×2 (10:41→18:13)
[2023-06-25] MEDS: predniSONE 5 MG TAB PO SCH (10:43)
[2023-06-25] MEDS: TACROLIMUS 1 MG CAP PO SCH ×2 (10:44→21:36)
[2023-06-25] MEDS: B-COMPLEX W/ C & FOLIC ACID(NEPHROVITE TAB) PO SCH (10:45)
[2023-06-25] MEDS: AZITHROMYCIN 500MG/ 250ML 250 ML IV SCH (10:49)
[2023-06-25] MEDS: FUROSEMIDE 40 MG/4 ML VIAL IV SCH (11:30)
[2023-06-25] MEDS ORDERED: FUROSEMIDE 40 MG/4 ML VIAL IV ONE (12:00)
[2023-06-25] MEDS: HEPARIN DRIP/D5W 100UNITS/ML 250 ML IV SCH (15:45)
[2023-06-25] MEDS: NOREPINEPHRINE 8 MG/250ML KIT 250 ML IV SCH (18:15)
[2023-06-25] MEDS: URSODIOL 300 MG CAP PO SCH (21:36)
[2023-06-25] MEDS: AMINO ACID INFUSION IN D10W 1,000 ML IV NR (21:37)
[2023-06-26] VITALS (31 sets, daily range): BP systolic 88–138; BP diastolic 16–67; PULSE 9–99; RESP 11–23; TEMP 97.2–97.9; O2SAT 95–100
[2023-06-26] MEDS: IPRATROPIUM BROM 0.5 MG/2.5ML INH SOL NEB SCH ×4 (00:18→17:55)
[2023-06-26] MEDS: ALBUTEROL SULF 2.5 MG/0.5ML(0.5%) NEB SOLN HHN SCH ×4 (00:18→17:55)
[2023-06-26 05:11] LABS: Alanine Aminotransferase 129 U/L (7-40); Albumin 2.8 g/dL (3.2-4.8); Anion Gap 7 (5-15); Aspartate Aminotransferase 308 U/L (13-40); Calcium 8.2 mg/dL (8.7-10.4); Carbon Dioxide 23 mmol/L (20-30); Chloride 98 mmol/L (98-107); Glucose 197 mg/dL (74-106); INR 1.41 (0.9-1.15); Magnesium 1.7 mg/dL (1.6-2.6); Partial Thromboplastin Time 59.6 SEC (24.5-34.5); Potassium 4.3 mmol/L (3.5-5.1); Prothrombin Time 14.5 sec (9.3-11.8); Sodium 128 mmol/L (136-145)
[2023-06-26 05:12] LABS: Bilirubin, Total 10.9 mg/dL (0.2-1.0); Phosphorus 3.8 mg/dL (2.4-5.1)
[2023-06-26 05:20] LABS: Alkaline Phosphatase 1139 U/L (46-116)
[2023-06-26] MEDS: ACCU-CHEK COMFORT CURVE STRIP VI SCH ×5 (05:46→23:50)
[2023-06-26 05:56] LABS: BUN/Creatinine Ratio 18.4 (10.0-20.0); Blood Urea Nitrogen 63 mg/dL (9-23)
[2023-06-26] MEDS: InsuLIN REG 1unit/0.01ml Soln (100units/ml) SC SCH ×5 (06:25→23:53)
[2023-06-26] MEDS: SUCRALFATE 1 GM/10 ML ORAL SUSP PO SCH ×2 (06:26→17:56)
[2023-06-26] MEDS: Glucerna Carbsteady SHAKE Vanilla 8oz PO SCH ×2 (08:17→18:00)
[2023-06-26] MEDS: cefTRIAXone 1GM/50ML D5W 50 ML IV SCH (08:17)
[2023-06-26] MEDS: MIDODRINE HCL 10 MG TAB PO PRN (08:17)
[2023-06-26 09:38] LABS: Basophils # (auto) 0.1 10 ^3/uL (0-0.2); Basophils % (auto) 0.8 % (0.0-2.0); Eosinophils # (auto) 0.2 10 ^3/uL (0-0.8); Eosinophils % (auto) 1.6 % (0.0-7.0); Hematocrit 26.9 % (41.0-53.0); Hemoglobin 8.8 g/dL (13.5-17.5); Lymphocytes # (auto) 0.9 10 ^3/uL (0.4-5.4); Lymphocytes % (auto) 8.3 % (10.0-50.0); Mean Corpuscular Hemoglobin 29.6 pg (28.0-32.0); Mean Corpuscular Hgb Conc. 32.6 g/dL (32.0-36.0); Mean Corpuscular Volume 90.9 fL (80.0-100.0); Monocytes % (auto) 8.6 % (0.0-12.0); Neutrophils # (auto) 9.2 10 ^3/uL (1.6-8.6); Neutrophils % (auto) 80.7 % (37.0-80.0); Nucleated Red Blood Cells % 0.2 %; Red Blood Cells 2.96 10^6/uL (4.5-5.90); Red Cell Distribution Width 23.9 % (11.8-14.3); White Blood Cell 11.4 10^3/uL (4.4-10.8)
[2023-06-26] MEDS: HEPARIN DRIP/D5W 100UNITS/ML 250 ML IV SCH (10:01)
[2023-06-26] MEDS: MAGNESIUM SULFATE 1GM/100ML 100 ML IV SCH ×2 (10:14→11:14)
[2023-06-26] MEDS: PANTOPRAZOLE 40 MG/10 ML VIAL INJ IV SCH ×2 (10:14→21:49)
[2023-06-26] MEDS: URSODIOL 300 MG CAP PO SCH ×2 (10:16→21:48)
[2023-06-26] MEDS: TACROLIMUS 1 MG CAP PO SCH ×2 (10:17→21:48)
[2023-06-26] MEDS: B-COMPLEX W/ C & FOLIC ACID(NEPHROVITE TAB) PO SCH (10:17)
[2023-06-26] MEDS: predniSONE 5 MG TAB PO SCH (10:17)
[2023-06-26] MEDS: AZITHROMYCIN 500MG/ 250ML 250 ML IV SCH (10:19)
[2023-06-26] MEDS: FUROSEMIDE 40 MG/4 ML VIAL IV SCH (10:19)
[2023-06-26] MEDS: DAKINS QUARTER STR 0.125% (NaHypochlorite) 473 ML TOPICAL SOL TOP SCH ×2 (10:21→21:53)
[2023-06-26] MEDS: NOREPINEPHRINE 8 MG/250ML KIT 250 ML IV SCH (13:48)
[2023-06-26] MEDS: AMINO ACID INFUSION IN D10W 1,000 ML IV NR (21:50)
[2023-06-27] VITALS (67 sets, daily range): BP systolic 96–154; BP diastolic 16–60; PULSE 86–106; RESP 10–100; TEMP 97.6–98.2; O2SAT 18–100
[2023-06-27] MEDS: ALBUTEROL SULF 2.5 MG/0.5ML(0.5%) NEB SOLN HHN SCH ×3 (00:04→13:05)
[2023-06-27] MEDS: IPRATROPIUM BROM 0.5 MG/2.5ML INH SOL NEB SCH ×3 (00:04→13:05)
[2023-06-27] MEDS ORDERED: SODIUM CHL 0.9% 1000 ML BAG XX ONE (07:00)
[2023-06-27] MEDS: ACCU-CHEK COMFORT CURVE STRIP VI SCH ×2 (07:42→12:01)
[2023-06-27] MEDS: SUCRALFATE 1 GM/10 ML ORAL SUSP PO SCH (07:42)
[2023-06-27] MEDS: InsuLIN REG 1unit/0.01ml Soln (100units/ml) SC SCH ×2 (07:54→12:01)
[2023-06-27 08:34] LABS: Alanine Aminotransferase 151 U/L (7-40); Albumin 2.8 g/dL (3.2-4.8); Anion Gap 7 (5-15); Aspartate Aminotransferase 344 U/L (13-40); Bilirubin, Total 11.9 mg/dL (0.2-1.0); Calcium 8.2 mg/dL (8.5-10.1); Carbon Dioxide 26 mmol/L (20-30); Chloride 98 mmol/L (98-107); Glucose 218 mg/dL (74-106); Phosphorus 2.9 mg/dL (2.4-5.1); Potassium 3.4 mmol/L (3.5-5.1); Sodium 131 mmol/L (136-145); Total Protein 6.1 g/dL (5.7-8.2)
[2023-06-27 08:35] LABS: Blood Urea Nitrogen 34 mg/dL (9-23)
[2023-06-27 08:38] LABS: BUN/Creatinine Ratio 17.3 (10.0-20.0)
[2023-06-27 08:43] LABS: Alkaline Phosphatase 1102 U/L (46-116)
[2023-06-27] MEDS: cefTRIAXone 1GM/50ML D5W 50 ML IV SCH (09:05)
[2023-06-27] MEDS: Glucerna Carbsteady SHAKE Vanilla 8oz PO SCH (09:06)
[2023-06-27] MEDS ORDERED: predniSONE 20 MG TAB PO SCH (10:00)
[2023-06-27] MEDS: FUROSEMIDE 40 MG/4 ML VIAL IV SCH (10:04)
[2023-06-27] MEDS: PANTOPRAZOLE 40 MG/10 ML VIAL INJ IV SCH (10:04)
[2023-06-27] MEDS: AZITHROMYCIN 500MG/ 250ML 250 ML IV SCH (10:04)
[2023-06-27] MEDS: TACROLIMUS 1 MG CAP PO SCH (10:05)
[2023-06-27] MEDS: B-COMPLEX W/ C & FOLIC ACID(NEPHROVITE TAB) PO SCH (10:05)
[2023-06-27] MEDS: URSODIOL 300 MG CAP PO SCH (10:05)
[2023-06-27] MEDS: DAKINS QUARTER STR 0.125% (NaHypochlorite) 473 ML TOPICAL SOL TOP SCH (10:12)
[2023-06-27] MEDS ORDERED: POTASSIUM CHL 20MEQ/100ML 100 ML IV ONE (10:45)
[2023-06-27] MEDS: MIDODRINE HCL 10 MG TAB PO PRN (11:59)
[2023-06-27 12:08] LABS: Magnesium 1.9 mg/dL (1.6-2.6)
== END 2023-06-27 16:40 | disposition hospice, home (50) | DRG 870 ==
LOC: ER 21:12 → ICU WEST 23:15 → TELE 05-31 03:00 → ICU WEST 06-01 03:38 → DOU IN ICU 06-14 23:04
PROVIDERS: ADMIT Internal Medicine; ATTEND Internal Medicine
PROC: 5A1955Z Respiratory Ventilation, Greater than 96 Consecutive Hours (ICD-10-PCS; principal; 2023-06-01)
PROC: 0BH17EZ Insertion of Endotracheal Airway into Trachea, Via Natural or Artificial Opening (ICD-10-PCS; 2023-06-01)
PROC: 02HV33Z Insertion of Infusion Device into Superior Vena Cava, Percutaneous Approach (ICD-10-PCS; 2023-06-01)
PROC: B548ZZA Ultrasonography of Superior Vena Cava, Guidance (ICD-10-PCS; 2023-06-01)
PROC: XW033E5 Introduction of Remdesivir Anti-infective into Peripheral Vein, Percutaneous Approach, New Technology Group 5 (ICD-10-PCS; 2023-06-01)
PROC: 02HV33Z Insertion of Infusion Device into Superior Vena Cava, Percutaneous Approach (ICD-10-PCS; 2023-06-02)
PROC: B548ZZA Ultrasonography of Superior Vena Cava, Guidance (ICD-10-PCS; 2023-06-02)
PROC: 5A1D70Z Performance of Urinary Filtration, Intermittent, Less than 6 Hours Per Day (ICD-10-PCS; 2023-06-02)
PROC: 05HY33Z Insertion of Infusion Device into Upper Vein, Percutaneous Approach (ICD-10-PCS; 2023-06-04)
PROC: 5A1D70Z Performance of Urinary Filtration, Intermittent, Less than 6 Hours Per Day (ICD-10-PCS; 2023-06-04)
PROC: 5A1D70Z Performance of Urinary Filtration, Intermittent, Less than 6 Hours Per Day (ICD-10-PCS; 2023-06-06)
PROC: 5A1D70Z Performance of Urinary Filtration, Intermittent, Less than 6 Hours Per Day (ICD-10-PCS; 2023-06-08)
PROC: 5A1D70Z Performance of Urinary Filtration, Intermittent, Less than 6 Hours Per Day (ICD-10-PCS; 2023-06-11)
PROC: 0JH63XZ Insertion of Tunneled Vascular Access Device into Chest Subcutaneous Tissue and Fascia, Percutaneous Approach (ICD-10-PCS; 2023-06-11)
PROC: 02H633Z Insertion of Infusion Device into Right Atrium, Percutaneous Approach (ICD-10-PCS; 2023-06-11)
PROC: B5181ZA Fluoroscopy of Superior Vena Cava using Low Osmolar Contrast, Guidance (ICD-10-PCS; 2023-06-11)
PROC: B548ZZA Ultrasonography of Superior Vena Cava, Guidance (ICD-10-PCS; 2023-06-11)
PROC: 30233K1 Transfusion of Nonautologous Frozen Plasma into Peripheral Vein, Percutaneous Approach (ICD-10-PCS; 2023-06-13)
PROC: 30233N1 Transfusion of Nonautologous Red Blood Cells into Peripheral Vein, Percutaneous Approach (ICD-10-PCS; 2023-06-13)
PROC: 5A1D70Z Performance of Urinary Filtration, Intermittent, Less than 6 Hours Per Day (ICD-10-PCS; 2023-06-13)
PROC: 5A1D70Z Performance of Urinary Filtration, Intermittent, Less than 6 Hours Per Day (ICD-10-PCS; 2023-06-15)
PROC: 5A1D70Z Performance of Urinary Filtration, Intermittent, Less than 6 Hours Per Day (ICD-10-PCS; 2023-06-20)
PROC: 5A1D70Z Performance of Urinary Filtration, Intermittent, Less than 6 Hours Per Day (ICD-10-PCS; 2023-06-24)
PROC: 5A1D70Z Performance of Urinary Filtration, Intermittent, Less than 6 Hours Per Day (ICD-10-PCS; 2023-06-27)
DX: A41.9 Sepsis, unspecified organism (principal); U07.1 COVID-19; G93.41 Metabolic encephalopathy; J12.82 Pneumonia due to coronavirus disease 2019; R65.21 Severe sepsis with septic shock; N17.0 Acute kidney failure with tubular necrosis; J96.01 Acute respiratory failure with hypoxia; N18.6 End stage renal disease; A04.72 Enterocolitis due to Clostridium difficile, not specified as recurrent; I82.A11 Acute embolism and thrombosis of right axillary vein; J98.11 Atelectasis; Z94.0 Kidney transplant status; K51.00 Ulcerative (chronic) pancolitis without complications; I12.0 Hypertensive chronic kidney disease with stage 5 chronic kidney disease or end stage renal disease; I48.20 Chronic atrial fibrillation, unspecified; E87.4 Mixed disorder of acid-base balance; K92.2 Gastrointestinal hemorrhage, unspecified; M86.8X7 Other osteomyelitis, ankle and foot; N39.0 Urinary tract infection, site not specified; B17.9 Acute viral hepatitis, unspecified; D63.1 Anemia in chronic kidney disease; K76.0 Fatty (change of) liver, not elsewhere classified; E11.22 Type 2 diabetes mellitus with diabetic chronic kidney disease; D69.6 Thrombocytopenia, unspecified; E11.621 Type 2 diabetes mellitus with foot ulcer; E11.69 Type 2 diabetes mellitus with other specified complication; E83.42 Hypomagnesemia; E83.39 Other disorders of phosphorus metabolism; E88.09 Other disorders of plasma-protein metabolism, not elsewhere classified; I95.1 Orthostatic hypotension; D89.839 Cytokine release syndrome, grade unspecified; E78.5 Hyperlipidemia, unspecified; Z99.2 Dependence on renal dialysis; Z83.3 Family history of diabetes mellitus; Z82.49 Family history of ischemic heart disease and other diseases of the circulatory system; Z89.431 Acquired absence of right foot; Z79.2 Long term (current) use of antibiotics; Z51.5 Encounter for palliative care; Z78.9 Other specified health status
CPT/HCPCS: 36415; 36558; 36600; 70450; 71045; 74176; 76705; 76937; 77001; 80048; 80053; 80197; 80202; 81001; 82140; 82270; 82306; 82570; 82607; 82728; 82805; 82962; 83605; 83690; 83735; 83880; 83970; 84100; 84156; 84300; 84443; 84484; 85007; 85014; 85018; 85025; 85027; 85049; 85610; 85730; 86705; 86706; 86850; 86900; 86901; 86920; 87040; 87070; 87081; 87086; 87205; 87340; 87426; 87493; 87804; 90935; 92507; 92610; 93005; 93970; 94002; 94003; 94640; 97110; 97116; 97163; 97530; 99152; C1894; C9113; G0378; J0696; J1100; J1642; J1815; J2185; J2250; J2405; J2543; J3370; J3480; J3490; J7060; J7507; J7517; P9047